=== PATIENT | female | born 1965 | race Caucasian/White ===

== ENCOUNTER 2023-01-05 08:47 | Outpatient (OUT) | payer BC, SELFPAY ==
--- NOTE | 2023-01-05 08:51 | CT_ITS ---
[address] [address] Patient Name: NATALI COOK MRN: [id number] date: 1965 Sex: F Assigned Patient Location: CT Current Patient Location: CT Accession/Order Number: [id number] Exam Date: 01/05/2023 08:58 Report Date: 01/05/2023 12:06 At the request of: YUNIOR GROSSMAN Procedure: CT lung screening low-dose EXAMINATION: CT lung screening low-dose HISTORY: Nicotine Dependence F17.219 , chest tightness COMPARISON: CT LUNG CANCER SCREENING 12/24/2021 TECHNIQUE: Axial, Coronal, and Sagittal images were created without the administration of IV contrast material. Dose reduction techniques were achieved by using automated exposure control and/or adjustment of mA and/or kV according to patient size and/or use of iterative reconstruction technique. FINDINGS: LUNGS: No visible pulmonary disease. PLEURA: No mass, effusion, or pneumothorax. VASCULATURE: No abnormality. IRAIS: No mass or pathologic adenopathy. MEDIASTINUM: No mass or pathologic adenopathy. CARDIAC: No enlargement, pericardial thickening, or significant calcification. AORTA: No aneurysm or dissection. CHEST WALL: No mass or axillary adenopathy BONES: No bone lesion or fracture. LIMITED ABDOMEN: No suspicious findings. Limited images of the upper abdomen. OTHER: Negative. CT/CT lung screening low-dose IMPRESSION: 1. Lung-RADS Category 1 Negative. No nodules and definitely benign nodules. Continue annual screening with LDCT in 12 months. Electronically authenticated by: RYAN ALEXANDER Date: 01/05/2023 12:06
== END 2023-01-05 08:48 | disposition home or self-care (01) ==
LOC: CT 08:47
PROVIDERS: Visit Provider Internal Medicine
DX: F17.219 Nicotine dependence, cigarettes, with unspecified nicotine-induced disorders (principal)
CPT/HCPCS: 71271

== ENCOUNTER 2024-01-09 07:47 | Outpatient (OUT) | payer BC, SELFPAY ==
--- NOTE | 2024-01-09 07:51 | CT_ITS ---
[address] [address] Patient Name: NATALI COOK MRN: [id number] date: 1965 Sex: F Assigned Patient Location: CT Current Patient Location: Accession/Order Number: [id number] Exam Date: 01/09/2024 08:00 Report Date: 01/12/2024 04:22 At the request of: YUNIOR GROSSMAN Procedure: CT lung screening low-dose EXAMINATION: CT lung screening low-dose HISTORY: Nicotine Dependence COMPARISON: CT lung screening 01/05/2023 TECHNIQUE: Axial, Coronal, and Sagittal images were created without the administration of IV contrast material. Dose reduction techniques were achieved by using automated exposure control and/or adjustment of mA and/or kV according to patient size and/or use of iterative reconstruction technique. FINDINGS: LUNGS: No visible pulmonary disease. PLEURA: No mass, effusion, or pneumothorax. VASCULATURE: No abnormality. IRAIS: No mass or pathologic adenopathy. MEDIASTINUM: No mass or pathologic adenopathy. CARDIAC: No enlargement, pericardial thickening, or pericardial effusion. Coronary Artery calcifications: AORTA: No aneurysm or dissection. CHEST WALL: No mass or axillary adenopathy BONES: No bone lesion or fracture. LIMITED ABDOMEN: No suspicious findings. Limited images of the upper abdomen. OTHER: Negative. CT/CT lung screening low-dose IMPRESSION: 1. Lung-RADS Category 1 Negative. No nodules and definitely benign nodules. Continue annual screening with LDCT in 12 months. Electronically authenticated by: RYAN ALEXANDER Date: 01/12/2024 04:22
--- OUTSIDE RECORDS SUMMARY | 2024-01-09 07:59 | XMS_ITS | CCD ---
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 Taqueria Gilliam Referring Unav ailable Patricio, Dr. Taqueria Hassan Attending Unav ailable Elmer, Dr. Vick Keith Primary Care Unavailable Unavailable Primary Care Provider UnavailDr. Vick Newman Primary Care Unavailable MD TAQUERIA GILLIAM Attending Unava ilable Elmer, Dr. Vick Keith Primary Care Unavailable MD TAQUERIA GILLIAM Attending Unava ilDO Vick Arthur Primary Care Provider REYNA Guido Attending Provider Herber Guido Unavailable DO Vick Payne Attending Provider Vick Payne DO Primary Care Prov ider [place], DO Vick Primary Care Provider [place], DO Vick Attending Provider [place], DO Vick Primary Care Provider [place], DO Vick Attending Provider TAQUERIA GILLIAM Attending Unavailable [place], [facility] Primary Care Unav ailable TAQUERIA GILLIAM Referring Unavailable [place]RI[place], [facility] Primary Care Unav ailable Vick Payne MD Primary Care Provider RICKEY VALERA Attending Unavailable NOAM MURGUIA Attending Unavailable RICKEY VALERA Referring Unavailable RICKEY VALERA Attending Unavailable TAQUERIA GILLIAM Referring Unavailable BRI[place], [facility] Primary Care Unav ailable TAQUERIA GILLIAM Attending Unavailable [place], [facility] Primary Care Unav ailable TAQUERIA GILLIAM Attending Unavailable [place], [facility] Primary Care Unav ailable TAQUERIA GILLIAM Referring Unavailable TAQUERIA ROJAS Attending Unavailable B[place], [facility] Primary Care Unav ailable TAQUERIA ROJAS Referring Unavailable [place], [facility] Primary Care Unav ailable TAQUERIA GILLIAM Attending Unavailable [place], [facility] Primary Care Unav ailable TAQUERIA ROJAS Referring Unavailable [place], [facility] Primary Care Unav ailable TAQUERIA ROJAS Attending Unavailable [place], [facility] Primary Care Unav ailable TAQUERIA GILLIAM Attending Unavailable [place], [facility] Primary Care Unav ailable DO Yesenia Durant Emergency Provider [phone] Self, Referral Attending Provider Unavailable [place], Vick Attending Unavailable [place], Upson Admitting Unavailable [place], Upson Primary Care Unavailable Self, Referral Admitting Unavailable Self, Referral Attending Unavailable [place], Upson Primary Care Unavailable [place], Upson Primary Care Unavailable [place], Vick Attending Unavailable [place], Vick Admitting Unavailable Yesenia Durant Attending Unavailable Yesenia Durant Admitting Unavailable [place], Vick Primary Care Unavailable [place], Vick Primary Care Unavailable Taqueria Rojas Admitting Unavailable Taqueria Rojas Attending Unavailable Unavailable Primary Care Provider UnavailaDne ARVIZU, BYRON Referring Jovani labJAY Cain Referring JAY Ku Attending JAY Ku Referring Unavai lable Allergies Allergy Classification Reported Allergen(s) Allergy Type Date of Onset Reaction(s) Facility Corticosteroids (3 sources) Corticosteroids; Translations: [Corticosteroids] Drug Allergy [facility] Work Phone: (14 sources) Corticosteroids; Translations: [Corticosteroids] Allergy to drug (finding) [facility] Work Phone: (20 sources) buPROPion; Translations: [BUPROPION] Drug Allergy [facility] (11 sources) Penicillins; Translations: [Penicillins] Allergy to substance Unknown Reaction, Gastrointestinal Upset [facility] (3 sources) buPROPion Drug Allergy Unknown [facility] Repository (7 sources) Penicillin G Drug Allergy Unknown, Gastrointestinal Upset [facility] (5 sources) predniSONE Drug Allergy rash [facility] Other (6 sources) methylPREDNISolone Drug Allergy [facility] (11 sources) Glucocorticoid preparation; Translations: [CORTICOSTEROIDS (GLUCOCORTICOIDS)] Drug Allergy Unknown [facility] (4 sources) Penicillin G sodium Allergy to substance GI intolerance [facility] (1 source) buPROPion Drug Allergy [facility] Repository (1 source) methylPREDNISolone Drug Allergy [facility] (1 source) Penicillin Drug Allergy [facility] Repository Medications Current Medications Medication Drug Class(es) Dates Sig (Normalized) Sig (Original) [id number] 200 actuat albuterol 0.09 mg/actuat metered dose inhaler (18 sources) beta2-Adrenergic Agonist Start: 12-05-2020 Albuterol Sulfate (Ventolin Hfa) 90 mcg/actuation HFA aerosol inhaler Active 1 - 2 PUFF INHALATION As Directed December 05, 2020 12:00am albuterol HFA (P ROVENTIL HFA, VENTOLIN HFA) 90 mcg/actuation inhaler Albuterol Sulfate HFA Active ALBUTEROL SULFAT E HFA IN Albuterol Sulfate HFA Active albuterol HFA (P ROVENTIL HFA, VENTOLIN HFA) 90 mcg/actuation inhaler Albuterol Sulfate HFA 0 Active Comment on above: Albuterol Sulfate HF A Albuterol Sulfate HFA 108 MCG/ACT (1 source) take 1 puff(s) by inhalation every four hours as needed Albuterol Sulfate HFA 108 MCG/ACT 1 puff as needed Inhalation every 4 hrs Active benzonatate 200 mg oral capsule (1 source) Non-narcotic Antitussive Start: 11-30-19 take 1 capsule by mouth three times daily as needed for cough Benzonatate 200 MG 1 capsule Orally Three times a day as needed for cough for 7 day(s) Nov, Active doxycycline monohydrate 100 mg oral capsule (1 source) Tetracycline-class Drug Start: 11-30-19 take 1 capsule by mouth every twelve hours Doxycycline Monohydrate 100 MG 1 capsule Orally Twice a day for 10 days Nov, Active ibuprofen 800 mg oral tablet (20 sources) Nonsteroidal Anti-inflammatory Drug Start: 08-19-19 take 1 tablet by mouth every eight hours as needed for pain ibuprofen (MOTRIN) 800 mg tablet Indications: Sore throat , Chronic neck pain , Headache, unspecified headache type Take 1 tablet by mouth every 8 hours as needed for pain. 15 tablet 09/15/2022 Active Start: 08-18-2018 take 1 tablet by yamile th three times daily Ibuprofen Active 1 TAB PO Three times daily August 18, 2018 12:00am Motrin 800 MG NJ N *please review for potential _update for e-prescription and drug interaction check* Active Comment on above: q 8 HR. Take 1 tablet by yamile th every 8 hours as needed for pain. iv contrast (will be provided with radiology test) (1 source) Start: 07-04-19 End: 07-05-19 iv contrast (will be provided with radiology test) CT Urogram WO/W Inject, intravenously, once for 1 dose.No IV access, insert saline lock prior to the beginning of sedation, infusion, injection of imaging exam. Discontinue saline lock post exam. If Pt. has a central line or IVAD, may access for administration according to line specific nursing protocol. Once exam is complete flush line and de-access according to line specific nursing protocol in the CT contrast administration guidelines link. 1 Each 0 07/03/2021 07/04/2021 Active Comment on above: CT Urogram WO/W Inje ct, intravenously, once for 1 dose.No IV access, insert saline lock prior to the beginning of sedation, infusion, injection of imaging exam. Discontinue saline lock post exam. If Pt. has a central line or IVAD, may access for administration according to line specific nursing protocol. Once exam is complete flush line and de-access according to line specific nursing protocol in the CT contrast administration guidelines link. methylPREDNISolone (4 sources) Corticosteroid Start: 09-16-19 methylPREDNISolone (MEDROL, JOHAN,) 4 mg Dose-Pack Indications: Chronic neck pain , Headache, unspecified headache type , Wheezing As instructed per package 21 tablet 09/15/2022 Active Start: 09-15-2022 methylPREDNISo lone (MEDROL, JOHAN,) 4 mg Dose-Pack Indications: Chronic neck pain , Headache, unspecified headache type , Wheezing As instructed per package 21 tablet 0 09/15/2022 Active Comment on above: As instructed per [facility] [place] predniSONE 20 mg oral tablet (1 source) Start: take 1 tablet by mouth every twelve hours predniSONE 20 MG 1 tablet Orally twice a day for 5 days Nov, Active 1000 ml sodium chloride 9 mg/ml injection (1 source) Start: End: inject 1 dose intravenously once 0.9 % sodium chloride (NACL 0.9%) infusion Inject 100 mL/hr intravenously one time only for 1 dose. Administer at rate defined per CT contrast administration specifications. To be provided with radiology test. 1 Each 0 07/03/2021 07/03/2021 Active Comment on above: Inject 100 mL/hr int ravenously one time only for 1 dose. Administer at rate defined per CT contrast administration specifications. To be provided with radiology test. Completed/Discontinued Medications Medication Drug Class(es) Dates Sig (Normalized) Sig (Original) betamethasone 3 mg/ml / betamethasone acetate 3 mg/ml injectable suspension (2 sources) Corticosteroid Start: 03-24-2023 End: 03-24-2023 betamethasone acet,sod phos (Celestone) injection 2 mL 120 actuat budesonide 0.16 mg/actuat / formoterol fumarate 0.0045 mg/actuat metered dose inhaler (10 sources) Corticosteroid, beta2-Adrenergic Agonist Start: 12-05-2020 End: 12-08-2023 Budesonide-Formote rol (Symbicort) 160-4.5 mcg/actuation HFA aerosol inhaler Discontinued 1 INH INHALATION Daily December 05, 2020 12:00am December 08, 2023 7:36pm 6 ml hylan g-f 20 8 mg/ml prefilled syringe (2 sources) Start: 01-06-2023 End: 01-06-2023 hylan (Synvisc-One) injection 48 mg Start: 01-06-2023 End: 01-06-2023 hylan (Synvisc-One) injectio n 48 mg Ketorolac (2 sources) Nonsteroidal Anti-inflammatory Drug, Cyclooxygenase Inhibitor Start: 12-08-2016 Toradol p er 15 mg Nov, 60 mg Lidocaine (5 sources) Antiarrhythmic, Amide Local Anesthetic Start: 07-21-2023 End: 07-21-2023 lidocaine (Xylocaine) 10 mg/mL (1 %) injection 5 mL Start: 07-21-2023 End: 07-21-2023 5 mL, injection, Once PRN Pr ocedure, Starting on Tue07/21/23 at 0921, For 1 dose Start: 03-24-2023 End: 03-24-2023 lidocaine (Xylocaine) 10 mg/ mL (1 %) injection 5 mL Start: 08-12-2021 End: 08-12-2021 lidocaine urojet 2 % 11 mL t opical gel (XYLOCAINE, GLYDO) LORazepam 0.5 mg oral tablet (20 sources) Benzodiazepine Start: 03-01-2017 End: 12-08-2023 Lorazepam Discontinued 0.5 MG PO As Directed March 01, 2017 1:00am December 08, 2023 7:37pm LORazepam (ATIVA N) 2 mg tab Take 5 mg by mouth as needed. Active LORazepam (Ativa n) 2 mg tablet LORazepam TABS Refills: 0 Active Active LORazepam 0.5mg *please review for potential _update for e-prescription and drug interaction check* PRN Not-Taking LORazepam TABS Q uantity: 0 Refills: 0 Ordered: 21-Jun-2019 DO Active LORazepam TABS R efills: 0 Active Comment on above: Take 5 mg by mouth a s needed. naproxen 500 mg oral tablet (20 sources) Nonsteroidal Anti-inflammatory Drug Start: 03-01-2017 End: 08-18-2018 Naproxen (Naprosyn) 500 mg Tablet Discontinued 500 MG PO EVERY 8-12 HOURS March 01, 2017 1:00am August 18, 2018 11:20am naproxen (Napros yn) 500 mg tablet Naproxen TABS Refills: 0 Active Active Naproxen TABS Qu antity: 0 Refills: 0 Ordered: 21-Jun-2019 DO Active Naproxen TABS Re fills: 0 Active ProAir HFA 108 (90 Base) MCG/ACT (2 sources) Start: 12-04-2018 take 2 puff(s) by inhalation every six hours as needed ProAir HFA 108 (90 Base) MCG/ACT 2 puffs as needed Inhalation every 6 hrs for 30 days Nov, Not-Taking Start: 12-04-2018 take 2 puff(s) by in halation every six hours as needed ProAir HFA 108 (90 Base) MCG/ACT 2 puffs as needed Inhalation every 6 hrs for 30 days Nov, Active sulfamethoxazole 800 mg / trimethoprim 160 mg oral tablet (1 source) Dihydrofolate Reductase Inhibitor Antibacterial, Sulfonamide Antimicrobial Start: 08-12-2021 End: 08-12-2021 sulfamethoxazole-trimethopri m 800-160 mg 1 tablet (BACTRIM DS,SEPTRA DS) 1 ml triamcinolone acetonide 40 mg/ml injection (6 sources) Corticosteroid Start: 07-21-2023 End: 07-21-2023 triamcinolone acetonide (Kenalog-40) injection 2 mg Start: 07-21-2023 End: 07-21-2023 2 mg, intra-articular, Once PRN Procedure, Starting on Purnima 07/21/23 at 0921, For 1 dose Start: 11-22-2018 Kenalog -40 mg Oct, 40 mg Start: 07-05-2018 Kenalog -40 mg June, 40 mg Problems Active Problems Problem Classification Problem Date Documented Da te Episodic/Chronic Acute bronchitis (1 source) Acute bronchitis, unspecified Episodic Conditions associated with dizziness or vertigo (2 sources) Positional vertigo; Translations: [Positional vertigo] Episodic Genitourinary symptoms and ill-defined conditions (2 sources) Mixed urinary incontinence; Translations: [Mixed incontinence] Chronic Genitourinary symptoms and ill-defined conditions (3 sources) Microscopic hematuria; Translations: [Other microscopic hematuria] Episodic Headache; including migraine (1 source) Headache; Translations: [Headache, unspecified headache type] 09-15-2022 Episodic Immunizations and screening for infectious disease (1 source) Contact with and (suspected) exposure to other viral communicable diseases Episodic Joint disorders and dislocations; trauma-related (20 sources) Derangement of knee; Translations: [Unspecified internal derangement of knee] Onset: 01-05-2023 01-05-2023 Chronic Joint disorders and dislocations; trauma-related (5 sources) Other tear of medial meniscus, current injury, right knee, initial encounter; Translations: [Tear of medial meniscus of knee] Onset: 11-16-2023 Episodic Menopausal disorders (2 sources) Atrophy of vagina; Translations: [Postmenopausal atrophic vaginitis] Chronic Mood disorders (4 sources) Mood swings; Translations: [Emotional lability] 11-16-2023 Episodic Nonmalignant breast conditions (2 sources) Fibrocystic disease of breast; Translations: [Diffuse cystic mastopathy of right breast] Chronic Nonspecific chest pain (3 sources) Atypical chest pain; Translations: [Other chest pain] Onset: 12-08-2023 12-08-2023 Episodic Osteoarthritis (20 sources) Osteoarthrosis of the carpometacarpal joint of the thumb; Translations: [Osteoarthrosis, localized, not specified whether primary or secondary, hand] Onset: 11-04-2022 01-06-2023 Chronic Other connective tissue disease (3 sources) Pain in right arm; Translations: [Bilateral arm pain] Onset: 03-09-2018 Episodic Other connective tissue disease (2 sources) Pain in left arm; Translations: [Pain in left arm] Onset: 03-09-2018 Episodic Other connective tissue disease (10 sources) Pain in lower limb; Translations: [Pain in leg, unspecified] 08-27-2021 Episodic Other ear and sense organ disorders (2 sources) Decreased hearing ; Translations: [Unspecified hearing loss, bilateral] Chronic Other gastrointestinal disorders (4 sources) Abdominal bloating; Translations: [Abdominal distension (gaseous)] 12-03-2023 Episodic Other injuries and conditions due to external causes (10 sources) Multiple bruising; Translations: [Unspecified multiple injuries, initial encounter] 03-01-2017 Episodic Other lower respiratory disease (1 source) Wheezing; Translations: [Wheezing] 09-15-2022 Episodic Other lower respiratory disease (1 source) Shortness of breath Episodic Other nervous system disorders (2 sources) Nerve root compression syndrome; Translations: [Nerve root compression] Chronic Other non-traumatic joint disorders (17 sources) Shoulder pain; Translations: [Pain in joint, shoulder region] Episodic Other non-traumatic joint disorders (17 sources) Pain in elbow; Translations: [Pain in joint, upper arm] Episodic Other non-traumatic joint disorders (1 source) Knee pain; Translations: [Knee pain] Episodic Other non-traumatic joint disorders (20 sources) Pain in unspecified knee; Translations: [Knee pain] Episodic Other non-traumatic joint disorders (20 sources) Pain in wrist; Translations: [Pain in joint, forearm] Episodic Other non-traumatic joint disorders (16 sources) Pigmented villonodular synovitis; Translations: [Villonodular synovitis, site unspecified] Onset: 01-05-2023 01-05-2023 Episodic Other non-traumatic joint disorders (6 sources) Pain in right knee; Translations: [Pain in joint, lower leg] Onset: 11-04-2022 Episodic Other nutritional; endocrine; and metabolic disorders (1 source) Abnormal weight gain; Translations: [Abnormal weight gain] Onset: 10-13-2023 Episodic Other screening for suspected conditions (not mental disorders or infectious disease) (15 sources) Patient encounter status; Translations: [Encounter for screening for malignant neoplasm of colon] Onset: 12-19-2023 12-05-2020 Episodic Other skin disorders (4 sources) Loss of hair; Translations: [Nonscarring hair loss, unspecified] 11-16-2023 Episodic Other skin disorders (2 sources) Eruption; Translations: [Rash and other nonspecific skin eruption] 12-08-2023 Episodic Other upper respiratory infections (1 source) Sore throat symptom; Translations: [Acute pharyngitis, unspecified] 09-15-2022 Episodic Otitis media and related conditions (2 sources) Otitis media; Translations: [Unspecified otitis media] Episodic Residual codes; unclassified (2 sources) Family history of breast cancer; Translations: [Family history of malignant neoplasm of breast] 12-08-2023 Episodic Spondylosis; intervertebral disc disorders; other back problems (9 sources) Displacement of cervical intervertebral disc without myelopathy; Translations: [Other cervical disc displacement, unspecified cervical region] Onset: 03-09-2018 07-05-2023 Chronic Sprains and strains (20 sources) Sprain of knee; Translations: [Sprains and strains of unspecified site of knee and leg] Onset: 01-05-2023 03-01-2017 Episodic Substance-related disorders (4 sources) Nicotine dependence, cigarettes, with unspecified nicotine-induced disorders; Translations: [NICOTINE DEPEND CIG W/UNS INDUC D/O] Onset: 12-24-2021 Chronic Thyroid disorders (7 sources) Hyperthyroidism; Translations: [Thyrotoxicosis, unspecified without thyrotoxic crisis or storm] Onset: 12-27-2023 12-27-2023 Chronic Past or Other Problems Problem Classification Problem Date Documented Date Episodic/Chronic Cardiac dysrhythmias (1 source) Bradycardia, unspecified; Translations: [Bradycardia, unspecified] Onset: 05-16-2023 Episodic Fracture of upper limb (17 sources) Closed fracture of scaphoid bone of wrist; Translations: [Closed fracture of navicular [scaphoid] bone of wrist] Onset: 01-05-2023 01-05-2023 Episodic Mood disorders (4 sources) Mood disorders Onset: 11-16-2023 11-16-2023 Other connective tissue disease (20 sources) Lateral epicondylitis of left humerus; Translations: [Lateral epicondylitis] Onset: 01-05-2023 01-05-2023 Episodic Other connective tissue disease (2 sources) Lateral epicondylitis of left humerus; Translations: [Lateral epicondylitis of left elbow] Other non-traumatic joint disorders (7 sources) Villonodular synovitis (pigmented), unspecified site; Translations: [Villonodular synovitis, site unspecified] Onset: 01-05-2023 01-05-2023 Episodic Spondylosis; intervertebral disc disorders; other back problems (16 sources) Neck pain; Translations: [Neck pain on left side] Onset: 07-11-2023 09-15-2022 Episodic Superficial injury; contusion (20 sources) Contusion of knee; Translations: [Contusion of knee] Onset: 01-05-2023 01-05-2023 Episodic Unclassified (10 sources) Sprain and strain of wrist 03-01-2017 Unclassified (1 source) Cough R05.9 Viral infection (1 source) COVID-19 NEGATED: Highlighted row has not occurred!Residual codes; unclassified (5 sources) Disease Episodic Results Test Name Value Interpretation Reference Range Facility CBC panel Auto (Bld)on 01-02 Erythrocyte distribution width (RBC) [Ratio] 13.3 % Normal 11.5-15.0 [facility] Comment on above: Order Comment: Amy ndiaye Type: BLOOD SPECIMENOrdering Facility: [facility] Address: [address] [place] [address] Performed By: #### 5 8410-2 ####[facility] [id number] [place] [address] [place] Hematocrit (Bld) [Volume fraction] 40.4 % Normal 36.0-46.0 [facility] Comment on above: Order Comment: Amy ndiaye Type: BLOOD SPECIMENOrdering Facility: [facility] Address: [address] [place] [address] Performed By: #### 5 8410-2 ####[facility] [id number] [place] [address] [place] Hemoglobin (Bld) [Mass/Vol] 13.0 g/dL Normal 11.5-15.5 [facility] Comment on above: Order Comment: Amy ndiaye Type: BLOOD SPECIMENOrdering Facility: [facility] Address: [address] [place] [address] Performed By: #### 5 8410-2 ####[facility] [id number] [place] [address] [place] MCH (RBC) [Entitic mass] 28.3 pg Normal 26.0-34.0 [facility] Comment on above: Order Comment: Speci men Type: BLOOD SPECIMENOrdering Facility: [facility] Address: [address] [place] [address] Performed By: #### 5 8410-2 ####[facility] [id number] [place] [address] [place] MCHC (RBC) [Mass/Vol] 32.2 g/dL Normal 30.5-36.0 [facility] Comment on above: Order Comment: Speci men Type: BLOOD SPECIMENOrdering Facility: [facility] Address: [address] [place] [address] Performed By: #### 5 8410-2 ####[facility] [id number] [place] [address] [place] MCV (RBC) [Entitic vol] 88.0 fL Normal 80.0-100.0 [facility] Comment on above: Order Comment: Speci men Type: BLOOD SPECIMENOrdering Facility: [facility] Address: [address] [place] [address] Performed By: #### 5 8410-2 ####[facility] [id number] [place] [address] [place] Nucleated RBC (Bld) [#/Vol] 10*3/uL Normal <0.01 [facility] Comment on above: Order Comment: Speci men Type: BLOOD SPECIMENOrdering Facility: [facility] Address: [address] [place] [address] Performed By: #### 5 8410-2 ####[facility] [id number] [place] [address] [place] Platelet mean volume (Bld) [Entitic vol] 9.6 fL Normal 9.0-12.7 [facility] Comment on above: Order Comment: Speci men Type: BLOOD SPECIMENOrdering Facility: [facility] Address: [address] [place] [address] Performed By: #### 5 8410-2 ####[facility] [id number] [place] [address] [place] Platelets (Bld) [#/Vol] 283 10*3/uL Normal 150-400 [facility] Comment on above: Order Comment: Speci men Type: BLOOD SPECIMENOrdering Facility: [facility] Address: [address] [place] [address] Performed By: #### 5 8410-2 ####[facility] [id number] [place] [address] [place] RBC (Bld) [#/Vol] 4.59 10*6/uL Normal 3.90-5.20 [facility] Comment on above: Order Comment: Speci men Type: BLOOD SPECIMENOrdering Facility: [facility] Address: [address] [place] [address] Performed By: #### 5 8410-2 ####[facility] [id number] [place] [address] [place] WBC (Bld) [#/Vol] 5.60 10*3/uL Normal 3.70-11.00 [facility] Comment on above: Order Comment: Speci men Type: BLOOD SPECIMENOrdering Facility: [facility] Address: [address] [place] [address] Performed By: #### 5 8410-2 ####[facility] [id number] [place] [address] [place] Hepatic function 2000 panelo n 01-03-2024 Albumin [Mass/Vol] 3.9 g/dL Normal 3.9-4.9 [facility] Comment on above: Order Comment: Speci men Type: BLOOD SPECIMEN Ordering Facility: [facility] Address: [address] [place] [address] Performed By: #### 2 4325-3, 3016-3, 3024-7, 3051-0 #### [facility] CLIA [id number] [address] [place] [address] [place] ALP [Catalytic activity/Vol] 110 U/L Normal 34-123 [facility] Comment on above: Order Comment: Speci men Type: BLOOD SPECIMEN Ordering Facility: [facility] Address: [address] [place] [address] Performed By: #### 2 4325-3, 3016-3, 3024-7, 3051-0 #### [facility] CLIA [id number] [address] [place] [address] [place] ALT [Catalytic activity/Vol] 23 U/L Normal 7-38 [facility] Comment on above: Order Comment: Speci men Type: BLOOD SPECIMEN Ordering Facility: [facility] Address: [address] [place] [address] Performed By: #### 2 4325-3, 3016-3, 3024-7, 3051-0 #### [facility] CLIA [id number] [address] [place] [address] [place] AST [Catalytic activity/Vol] 23 U/L Normal 13-35 [facility] Comment on above: Order Comment: Speci men Type: BLOOD SPECIMEN Ordering Facility: [facility] Address: [address] [place] [address] Performed By: #### 2 4325-3, 3016-3, 3024-7, 3051-0 #### [facility] CLIA [id number] [address] [place] [address] [place] Bilirubin [Mass/Vol] 0.3 mg/dL Normal 0.2-1.3 [facility] Comment on above: Order Comment: Speci men Type: BLOOD SPECIMEN Ordering Facility: [facility] Address: [address] [place] [address] Performed By: #### 2 4325-3, 3016-3, 3024-7, 3051-0 #### [facility] CLIA [id number] [address] [place] [address] [place] Bilirubin.conjugated [Mass/Vol] mg/dL Normal <0.2 [facility] Comment on above: Order Comment: Speci men Type: BLOOD SPECIMEN Ordering Facility: [facility] Address: [address] [place] [address] Performed By: #### 2 4325-3, 3016-3, 3027, 305-0 #### [facility] CLIA [id number] [address] [place] [address] [place] Protein [Mass/Vol] 6.5 g/dL Normal 6.3-8.0 [facility] Comment on above: Order Comment: Speci men Type: BLOOD SPECIMEN Ordering Facility: [facility] Address: [address] [place] [address] Performed By: #### 2 4325-3, 3016-3, 3027, 305-0 #### [facility] CLIA [id number] [address] [place] [address] [place] T3Free SerPl-mCncon 01-03-20 24 Free T3 [Mass/Vol] 6.8 pg/mL High 2.3-4.1 [facility] Comment on above: Order Comment: Speci men Type: BLOOD SPECIMEN Ordering Facility: [facility] Address: [address] [place] [address] Performed By: #### 2 4325-3, 3016-3, 302-7, 305-0 #### [facility] CLIA [id number] [address] [place] [address] [place] T4 Free SerPl-mCncon 024 Free T4 [Mass/Vol] 2.0 ng/dL High 0.9-1.7 [facility] Comment on above: Order Comment: Speci senthil Type: BLOOD SPECIMEN Ordering Facility: [facility] Address: [address] [place] [address] Performed By: #### 2 4325-3, 3016-3, 3024-7, 3051-0 #### [facility] CLIA [id number] [address] [place] [address] [place] TSH SerPl-aCncon 01-03-2024 TSH Qn m[IU]/L Low 0.270-4.[address] [facility] Comment on above: Order Comment: Amy senthil Type: BLOOD SPECIMEN Ordering Facility: [facility] Address: [address] [place] [address] Performed By: #### 2 4325-3, 3016-3, 3024-7, 3051-0 #### [facility] CLIA [id number] [address] [place] [address] [place] US THYROID/PARATHYROIDon US THYROID/PARATHYROID * * *Final Report * * * DATE OF EXAM: Jan 02 2024 10:41PM [facility] 1048 - US THYROID/PARATHYROID / PROCEDURE REASON: Torin thyroiditis * * * * Physician Interpretation * * * * EXAMINATION: THYROID ULTRASOUND CLINICAL HISTORY: Torin thyroiditis TECHNIQUE: Sonography and Doppler imaging of the thyroid was performed. Images were obtained and stored in a permanent archive. MQ: UST_1 COMPARISON: None. RESULT: Right Lobe: 4.9 x 1.4 x 1.3 cm; homogeneous echogenicity, expected vascular flow. Left Lobe: 4.8 x 2.2 x 1.8 cm; homogeneous echogenicity, expected vascular flow. Isthmus: 0.2 cm The most suspicious thyroid nodule(s) (up to four) as below: NODULE 1: Location: Right mid Size: 1.3 x 1.1 x 0.9 cm Characteristics: Composition: Solid or almost completely solid, 2 points Echogenicity: Hypoechoic, 2 points Shape: [id number], 0 points Margin: Ill-defined, 0 points Echogenic foci (add points for all that apply): None, 0 points Internal vascularity: present Interval growth: No prior available for comparison TI-RADS Category: TR4 ACR Recommendation: TI-RADS 4 nodule. Follow up imaging in 1, 2, 3 and 5 years is advised. IMPRESSION: Thyroid nodule(s) is/are present. Surveillance imaging is recommended for one or more nodules as detailed in the synoptic report. TI-RADS Category: TR4 ACR Recommendation: TI-RADS 4 nodule. Follow up imaging in 1, 2, 3 and 5 years is advised. ACR recommendations are strictly based on the size and imaging appearance at the time of the exam and do not consider stability or previous biopsy results. Pack Room Operator: LARISA Transcribe Date/Time: Jan 06 2024 5:49A Dictated by : АЛЕКСАНДР HINDS MD This examination was interpreted and the report reviewed and electronically signed by: АЛЕКСАНДР HINDS MD on Jan 06 2024 5:50AM EST [id number] [facility] 12-28-[address] [facility] Telephone (ENDOLN) ----- CLARISSA PARIS ([id number]) 1965 F Date Time Provider Department 12/28/23 JAY HASSAN ENDOANATOLIY During your visit today, we recorded the following information about you: Maddie Vigil 12/28/2023 10:25 AM Signed Clarissa is calling Jay Hassan MD today trying to review her visit from yesterday on my chart. The visit is unsigned. Looking to see if this can be completed so that she can review. Please advise. Patient has been identified by name and birthdate. Duration of symptoms: N/A Person calling: self Call patient at: at home [phone] (home) [phone] (cell) Was an appointment scheduled: No Closing statement: Results or non-symptom based questions: Thank you for calling [facility], your call will be returned within the next business day. Maddie Sonia Florentino LPN 12/28/2023 4:50 PM Signed Note has been signed . Trusted Opinion message sent to patient. Allergies As of Date: 12/28/2023 Noted Allergy Reaction WELLBUTRIN (BUPROPION) 07/03/2021 2 - Rash Date Reviewed: 12/27/2023 Reviewed by: Sonia Dennis LPN - Fully Assessed Reason for Visit: Appointment [186] Prescriptions as of 12/28/2023 - ibuprofen (MOTRIN) 800 mg tablet q 8 HR. - albuterol HFA (PROVENTIL HFA, VENTOLIN HFA) 90 mcg/actuation inhaler Albuterol Sulfate HFA - methylPREDNISolone (MEDROL, JOHAN,) 4 mg Dose-Pack As instructed per package - ibuprofen (MOTRIN) 800 mg tablet Take 1 tablet by mouth every 8 hours as needed for pain. - LORazepam (ATIVAN) 2 mg tab Take 5 mg by mouth as needed. Problem List As Of Date: 12/28/2023 (None) Encounter Status:Closed by SONIA DENNIS on 12/28/[address] [facility] No Panel Informationon 12-27 Interpretation and review of laboratory results Abnormal [facility] T3, FREEon 12-28-2023 Free T3 [Mass/Vol] 8.2 pg/mL High 2.3 - 4.1 pg/mL [facility] T4 FREE/FREE THYROXINEon Free T4 [Mass/Vol] 2.1 ng/dL High 0.9 - 1.7 ng/dL [facility] THYROID STIMULATING HORMONEo n 12-28-2023 TSH Qn Low [facility] Comment on above: Result rechecked. THYROID STIMULATING IMMUNOGL OBULIN BLOODon 12-28-2023 Interpretation and review of laboratory results Abnormal [facility] Thyroid stimulating immunoglobulins actual/normal (S) [Relative mass conc] 1.75 % High NINF [facility] Comment on above: Thyroid Stimulating Immunoglobulin test is used as an aid in diagnosis of autoimmune hyperthyroidism especially in patients with Grave's orbitopathy and dermopathy. Low positive TSH receptor stimulating antibody levels may occasionally be found in patients with autoimmune hypothyroidism. Clinical correlation is required. TSI Qualitative Positive Abnormal Negative [facility] TSH Qnon 12-28-2023 Interpretation and review of laboratory results Abnormal [facility] CNOVon 12-27-2023 CNOV Office Visit (ENDOLN ) ----- CLARISSA PARIS ([id number]) 1965 F Date Time Provider Department 12/27/23 8:40 AM JAY HASSAN ENDOLN During your visit today, we recorded the following information about you: Pulse Blood pressure Weight Height 78/minute 100/62 72 kg 1.676 m Jay Hassan MD 12/28/2023 11:04 AM Signed ENDOCRINOLOGY REASON FOR CONSULTATION: Hyperthyroidism The patient is referred by Rickey Valera MD HISTORY HPI: Clarissa Paris is a 58 year old female who comes in here for evaluation of tiredness, hair loss, thyroid concerns. She has been experiencing hair loss, weight gain, mood swings, and tiredness since around April 2023. She also mentioned tenderness of fingers in the morning. Per note from OB, Pt started crying while going over questions. Family history of breast cancer MGM and PGM. Sister with Torin's. New onset generalized itching Insomnia, which has gotten worse. Used to smoke tobacco, about 0.5 ppd, but quit on 10/2022. She is exercising: Rowing machine for 15 minutes, followed by resistance, and sometimes bicycle. REVIEW OF SYSTEMS: CONSTITUTIONAL: No unintended weight loss. HEENT: No frequent or severe headaches. EYES: No blurry vision. No diplopia. CARDIOVASCULAR: No significant chest pain. No significant ankle edema. HR up to 100 when resting. PULMONARY: No significant dyspnea. GASTROINTESTINAL: Frequent heartburn. Some constipation. GENITOURINARY: Nocturia average: 2. No new urinary complaints. Mild effort incontinence. NEUROLOGIC: No tremor. No numbness of concern. MUSCULOSKELETAL: Per HPI. MENTAL HEALTH: Per HPI. INTEGUMENTARY: Per HPI. ENDOCRINE: Per HPI PAST MEDICAL HISTORY Diagnosis Date Depression PAST SURGICAL HISTORY Procedure Laterality Date SNGL HYSTERECTOMY KNEE RIGHT OP SURGERY LAMINECTOMY,CERVICAL Social History Tobacco Use Smoking status: Every Day Types: Cigarettes Passive exposure: Current Smokeless tobacco: Never Substance Use Topics Alcohol use: Yes Drug use: Not Currently FAMILY HISTORY Problem Relation Age of Onset Torin Disease Sister Thyroid Maternal Grandmother Diabetes Maternal Grandmother Thyroid Maternal Grandfather Depression Maternal Grandfather Diabetes Paternal Grandmother Current Outpatient Medications Medication Sig ibuprofen (MOTRIN) 800 mg tablet q 8 HR. albuterol HFA (PROVENTIL HFA, VENTOLIN HFA) 90 mcg/actuation inhaler Albuterol Sulfate HFA methylPREDNISolone (MEDROL, JOHAN,) 4 mg Dose-Pack As instructed per package ibuprofen (MOTRIN) 800 mg tablet Take 1 tablet by mouth every 8 hours as needed for pain. LORazepam (ATIVAN) 2 mg tab Take 5 mg by mouth as needed. No current facility-administered medications for this visit. ALLERGIES Allergen Reactions Wellbutrin [Bupropi* Rash PHYSICAL EXAM: BP 100/62 (BP Site: Left Arm, BP Position: Sitting, BP Cuff Size: Extra Large Adult) Pulse 78 Ht 167.6 cm (5' 6 ) Wt 72 kg (158 lb 11.7 oz) BMI 25.62 kg/m? Body mass index is 25.62 kg/m?. Appearance: Well appearing, in no acute distress. Obese, not cushingoid HEENT: Anicteric sclerae. Non-injected conjunctivae. Neck: No visible goiter. No thyromegaly. Thyroid surface is irregular and left lobe seems larger than the right one. No lymphadenopathy Heart: RRR. No detectable murmur, gallop, or rub. Lungs: Clear to auscultation. No wheezing, rhonchi or rales. Abdomen: No significant striae. Extremities: No deformities. No edema. Neuro: Alert, speaking coherently. No involuntary motions. Skin: Normal temperature. No rash. LABS RESULTS: (10/20/23) TPO 137 (0-34) FT4 1.18 (0.61-1.12) TSH 0.01 IMAGING: No thyroid imaging. ASSESSMENT AND PLAN: Clarissa Paris is a 58 year old female here for evaluation of hyperthyroidism. (E05.90) Hyperthyroidism (primary encounter diagnosis) Comment: Pt with multiple symptoms, some of which may be explained by hyperthyroidism, while some other may not. Clinically today there are no apparent signs of thyrotoxicosis. Pt had mildly TSH with mildly increased FT4 on 10/20/23. Plan to check TFT and TSI. 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 Besides TFTs, will do a thyroid US. Plan: T3, FREE, T4 FREE/FREE THYROXINE, THYROID STIMULATING HORMONE, US THYROID/PARATHYROID Return to office: 3 months Jay Hassan MD c.c. Rickey Valera MD Allergies As of Date: 12/27/2023 Noted Allergy Reaction WELLBUTRIN (BUPROPION) 07/03/2021 2 - Rash Date Reviewed: 12/27/2023 Reviewed by: Sonia Dennis LPN - Fully Assessed Reason for Visit: Thyroid Problem [110] Primary Visit Diagnosis:Hyperthyroidism (more content not included)... Normal [facility] T3Free SerPl-mCncon 12-27-19 24 Free T3 [Mass/Vol] 8.2 pg/mL High 2.3-4.1 [facility] Comment on above: Order Comment: Speci men Type: BLOOD SPECIMEN [facility]: [facility] Address: [address] [place] [address] Performed By: #### 3 051-0, 7, 3 #### [facility] CLIA [id number] [address] [place] [address] [place] T4 Free SerPl-mCncon 024 Free T4 [Mass/Vol] 2.1 ng/dL High 0.9-1.7 [facility] Comment on above: Order Comment: Speci men Type: BLOOD SPECIMEN Ordering Facility: [facility] Address: [address] [place] [address] Performed By: #### 3 051-0, 3023-7, 3 #### [facility] CLIA [id number] [address] [place] [address] [place] THYROID STIMULATING IMMUNOGL OBULIN BLOODon 12-27-2023 Thyroid stimulating immunoglobulins actual/normal (S) [Relative mass conc] 1.75 IU/L High <0.55 [facility] Comment on above: Order Comment: Speci men Type: BLOOD SPECIMENOrdering Facility: [facility] Address: [address] [place] [address] Result Comment: Thyr oid Stimulating Immunoglobulin test is used as an aid in diagnosis of autoimmune hyperthyroidism especially in patients with Grave's orbitopathy and dermopathy. Low positive TSH receptor stimulating antibody levels may occasionally be found in patients with autoimmune hypothyroidism. Clinical correlation is required. Performed By: #### T SIGIM ####[facility] [id number] [place] [address] [place] TSI QUALITATIVE Positive Abnormal Negative [facility] Comment on above: Order Comment: Speci men Type: BLOOD SPECIMENOrdering Facility: [facility] Address: [address] [place] [address] Performed By: #### T SIGIM ####[facility] [id number] [place] [address] [place] TSH SerPl-aCncon 12-27-2023 TSH Qn m[IU]/L Low 0.270-4.[address] [facility] Comment on above: Order Comment: Speci men Type: BLOOD SPECIMEN Ordering Facility: [facility] Address: [address] [place] [address] Result Comment: Resu lt rechecked. Performed By: #### 3 051-0, 3024-7, 3016-3 #### [facility] CLIA [id number] [address] [place] [address] [place] MM screening mammo BI w/CADo n 12-19-2023 MM screening mammo BI w/CAD [facility] [address] [place] [address] Mammography Report Signed Patient: Clarissa Paris MR#: [id number] : 1965 Acct:[id number] Age/Sex: 57 / F ADM Date: 12/19/23 Loc: [place] Room: Type: [facility] Attending Dr: Referral Self Copies to: Vick Payne,DO SELF,REFERRAL Ordering Provider: SELF,REFERRAL Date of Service: 12/19/23 MM/MM screening mammo BI w/CAD: SCREENING BILATERAL Screening Full Field digital mammogram with 3-D imaging. Full field digital CC and MLO imaging performed. CAD utilized. COMPARISON: 12/17/2022 HISTORY: Annual screening BREAST COMPOSITION: Scattered fibroglandular densities of the breast parenchyma identified BREAST CALCIFICATIONS: Benign calcifications present. VASCULAR CALCIFICATIONS: None ARCHITECTURAL DISTORTION: None BREAST NODULE: Similar benign nodularity. AXILLARY LYMPH NODES: Normal POSTSURGICAL CHANGES: 2 left biopsy marking clips redemonstrated. MM/MM screening mammo BI w/CAD IMPRESSION: No mammographic evidence of malignancy. Routine follow-up recommended in one year. RESULT CODE: 2 Benign Findings(s) DENSITY CODE: 2 (approximately 25-50% glandular) FOLLOW UP: 1YR THE FALSE-NEGATIVE RATE OF MAMMOGRAPHY IS APPROXIMATELY 10%. IMAGING OF A PALPABLE ABNORMALITY MUST BE BASED ON CLINICAL GROUNDS. PATIENT WAS ENTERED INTO A REMINDER SYSTEM WITH A TARGET DUE DATE FOR THE NEXT MAMMOGRAM. Impression dictated by: Jose Lama M.D.12/19/2023 9:41 AM Dictation Location: [facility] Transcribed By: [facility] 12/19/23940 Dictated By: Jose Lama DO 12/19/23939 Signed By: 12/19/23940 Normal [facility] Automated basophil %Ordered By: Yesenia Durant on 12-08-2023 Basophils/100 WBC (Bld) 0.8 % Normal . [facility] Comment on above: Performed By: #### C MP, CBC, LIPID, THYROID SC #### [facility] [address] Automated basophil countOrde red By: Yesenia Durant on 12-08-2023 Basophils (Bld) [#/Vol] 0.1 10*3/uL Normal 0.0-0.2 [facility] Comment on above: Result Comment: PERF ORMED BY: [place] [address] PATHOLOGIST EXCELLENCE MANAGER MICHELLE PLATT M.D. Performed By: #### C MP, CBC, LIPID, THYROID SC #### [address] Automated blood monocyte cou ntOrdered By: Yesenia Durant on 12-08-2023 Monocytes (Bld) [#/Vol] 0.9 10*3/uL High 0.0-0.8 [facility] Comment on above: Performed By: #### C MP, CBC, LIPID, THYROID SC #### [address] Automated eosinophil %Ordere d By: Yesenia Durant on 12-08-2023 Eosinophils/100 WBC (Bld) 0.7 % Normal . [facility] Comment on above: Performed By: #### C MP, CBC, LIPID, THYROID SC #### [address] Automated eosinophil countOr dered By: Yesenia Durant on 12-08-2023 Eosinophils (Bld) [#/Vol] 0.0 10*3/uL Normal 0.0-0.45 [facility] Comment on above: Performed By: #### C MP, CBC, LIPID, THYROID SC #### [address] Automated monocyte %Ordered By: Yesenia Durant on 12-08-2023 Monocytes/100 WBC (Bld) 12.5 % Normal . [facility] Comment on above: Performed By: #### C MP, CBC, LIPID, THYROID SC #### [address] Automated neutrophil %Ordere d By: Yesenia Durant on 12-08-2023 Neutrophils/100 WBC (Bld) 53.9 % Normal . [facility] Comment on above: Performed By: #### C MP, CBC, LIPID, THYROID SC #### [address] BNP ser/plasOrdered By: Jason Durant on 12-08-2023 Natriuretic peptide B (Bld) [Mass/Vol] 39.0 pg/mL Normal 5-100 [facility] Comment on above: Result Comment: PERF ORMED BY: [place] [address] PATHOLOGIST EXCELLENCE MANAGER MICHELLE PLATT M.D. Performed By: #### C MP, CBC, LIPID, THYROID SC #### [address] Basic Metabolic Panelon 11-28 Creatinine Clr Calc Pharmacy 91.06 Normal [facility] Comment on above: Result Comment: PERF ORMED BY: [place] [address] PATHOLOGIST EXCELLENCE MANAGER MICHELLE PLATT M.D. Performed By: #### C MP, CBC, LIPID, THYROID SC #### [address] GFR/1.73 sq M.predicted MDRD (S/P/Bld) [Vol rate/Area] mL/min/{1.73_m2} Normal [facility] Comment on above: Performed By: #### C MP, CBC, LIPID, THYROID SC #### [address] Calcium [Mass/volume] in Ser um or PlasmaOrdered By: Yesenia Durant on 12-08-2023 Calcium [Mass/Vol] 10.3 mg/dL Normal 8.6-10.[address] [facility] Comment on above: Performed By: #### C MP, CBC, LIPID, THYROID SC #### [address] Carbon dioxide, total [Moles /volume] in Serum or PlasmaOrdered By: Yesenia Durant on 12-08-2023 CO2 [Moles/Vol] 27.2 mmol/L Normal 21.0-31.0 [facility] Comment on above: Performed By: #### C MP, CBC, LIPID, THYROID SC #### [address] Chloride [Moles/volume] in S noam or PlasmaOrdered By: Yesenia Durant on 12-08-2023 Chloride [Moles/Vol] 102 mmol/L Normal 98-107 [facility] Comment on above: Performed By: #### C MP, CBC, LIPID, THYROID SC #### [address] Complete Blood Count Auto Di ffon 12-08-2023 Mean Corpuscular HGB Conc 33.7 g/dL Normal 32.0-35.0 [facility] Comment on above: Performed By: #### C MP, CBC, LIPID, THYROID SC #### [address] Monocytes/100 WBC (Bld) 16.43 % Normal 0.00-20.00 [facility] Comment on above: Performed By: #### C MP, CBC, LIPID, THYROID SC #### [address] NRBC% 0.2 /100{WBC} Normal 0-0.5 [facility] Comment on above: Performed By: #### C MP, CBC, LIPID, THYROID SC #### [address] Creatine kinase [Enzymatic a ctivity/volume] in Serum or PlasmaOrdered By: Yesenia Durant on 12-08-2023 CK [Catalytic activity/Vol] 66 U/L Normal 30-223 [facility] Comment on above: Performed By: #### C MP, CBC, LIPID, THYROID SC #### [address] Creatinine [Mass/volume] in Serum or PlasmaOrdered By: Yesenia Durant on 12-08-2023 Creatinine [Mass/Vol] 0.69 mg/dL Normal 0.60-1.20 [facility] Comment on above: Performed By: #### C MP, CBC, LIPID, THYROID SC #### [facility] [address] [place] [address] ECG 12 lead ECGon 12-08-2023 ECG 12 lead ECG [facility] [place] [address] [place] [address] Electrocardiograph Report Signed Patient: Clarissa Paris MR#: [id number] : 1965 Acct:[id number] Age/Sex: 57 / F ADM Date: 12/08/23 Loc: ER Room: Type: [facility] ER Attending Dr: Ordering Provider: Yesenia Durant DO Date of Service: 12/08/2312/22/1915 ECG/ECG 12 lead ECG: Chest Pain Copies to: Test Reason : Blood Pressure : 189/93 mmHG Vent. Rate : 99 BPM Atrial Rate : 99 BPM P-R Int : 132 ms QRS Dur : 84 ms QT Int : 358 ms P-R-T Axes : 74 83 67 degrees QTcB Int : 459 ms Normal sinus rhythm Normal ECG When compared with ECG of 15-Aug-2018 15:52, Vent. rate has increased by 40 bpm QT has lengthened Confirmed by YESENIA DURANT DO ([id number]) on 12/08/2023 10:56:28 PM Referred By: Electronically Signed By: YESENIA DURANT DO Transcribed By: MUS Signed By Yesenia Durant DO 2255 Normal [facility] Erythrocyte distribution wid th [Ratio] by Automated countOrdered By: Yesenia Durant on 12-08-2023 Erythrocyte distribution width (RBC) [Ratio] 13.5 % Normal 11.9-15.3 [facility] Comment on above: Performed By: #### C MP, CBC, LIPID, THYROID SC #### [facility] [address] [place] [address] Erythrocytes [#/volume] in B lood by Automated countOrdered By: Yesenia Durant on 12-08-2023 RBC (Bld) [#/Vol] 4.60 10*6/uL Normal 3.60-5.00 [facility] Comment on above: Performed By: #### C MP, CBC, LIPID, THYROID SC #### [facility] [address] [place] [address] Glucose [Mass/volume] in Ser um or PlasmaOrdered By: Yesenia Durant on 12-08-2023 Glucose [Mass/Vol] 102 mg/dL High 70-[address] [facility] Comment on above: ADA recommended refe rence rangeRandom Glucose Reference Range is dependent on time and content of last meal. Glucose of more than 200 mg/dL in a nonstressed, ambulatory subject supports the diagnosis of Diabetes Mellitus. Result Comment: [place] om Glucose Reference Range is dependent on time and content of last meal. Glucose of more than 200 mg/dL in a nonstressed, ambulatory subject supports the diagnosis of Diabetes Mellitus. ADA recommended reference range Performed By: #### C MP, CBC, LIPID, THYROID SC #### [facility] [address] [place] [address] Hematocrit [Volume Fraction] of Blood by Automated countOrdered By: Yesenia Durant on 12-08-2023 Hematocrit (Bld) [Volume fraction] 39.5 % Normal 34.0-46.4 [facility] Comment on above: Performed By: #### C MP, CBC, LIPID, THYROID SC #### [facility] [address] [place] [address] Hemoglobin [Mass/volume] in BloodOrdered By: Yesenia Durant on 12-08-2023 Hemoglobin (Bld) [Mass/Vol] 13.3 g/dL Normal 11.8-15.4 [facility] Comment on above: Performed By: #### C MP, CBC, LIPID, THYROID SC #### [address] INR in Platelet poor plasma by Coagulation assayOrdered By: Yesenia Durant on 12-08-2023 INR Coag (PPP) [Relative time] 1.0 {INR} Normal [facility] Comment on above: INR Therapeutic Rang e A) Pre- and Peroperative OAT started two weeks before surgery. NOT HIP SURGERY: 1.5 - 2.5 HIP SURGERY: 2 - 3B) Primary and secondary prevention of venous THROMBOSIS: 2 - 3C) Active venous thrombosis, pulmonary embolismand prevention of recurrent venous thrombosis: 2 - 3D) Prevention of arterial thromboembolismincluding patients with mechanical heart valves: 3 - 4.5 Result Comment: INR Therapeutic Range A) Pre- and Peroperative OAT started two weeks before surgery. NOT HIP SURGERY: 1.5 - 2.5 HIP SURGERY: 2 - 3 B) Primary and secondary prevention of venous THROMBOSIS: 2 - 3 C) Active venous thrombosis, pulmonary embolism and prevention of recurrent venous thrombosis: 2 - 3 D) Prevention of arterial thromboembolism including patients with mechanical heart valves: 3 - 4.5 PERFORMED BY: [place] [address] PATHOLOGIST EXCELLENCE MANAGER MICHELLE PLATT M.D. Performed By: #### C MP, CBC, LIPID, THYROID SC #### [address] Leukocytes [#/volume] correc kb for nucleated erythrocytes in Blood by Automated counOrdered By: Yesenia Durant on 12-08-2023 WBC corrected for nucl RBC Auto (Bld) [#/Vol] 7.1 10*3/uL 3.8-11.6 [facility] Leukocytes [#/volume] in Blo od by Automated countOrdered By: Yesenia Durant on 12-08-2023 WBC (Bld) [#/Vol] 7.1 10*3/uL Normal 3.8-11.[address] [facility] Comment on above: Performed By: #### C MP, CBC, LIPID, THYROID SC #### [facility] [address] [place] [address] [place] Lymphocytes [#/volume] in Bl ood by Automated countOrdered By: Yesenia Durant on 12-08-2023 Lymphocytes (Bld) [#/Vol] 2.3 10*3/uL Normal 1.00-4.8 [facility] Comment on above: Performed By: #### C MP, CBC, LIPID, THYROID SC #### [facility] [address] [place] [address] [place] Lymphocytes/100 leukocytes i n Blood by Automated countOrdered By: Yesenia Durant on 12-08-2023 Lymphocytes/100 WBC (Bld) 32.1 % Normal . [facility] Comment on above: Performed By: #### C MP, CBC, LIPID, THYROID SC #### [address] MCH [Entitic mass] by Automa kb countOrdered By: Yesenia Durant on 12-08-2023 MCH (RBC) [Entitic mass] 28.9 pg Normal 24.7-34.3 [facility] Comment on above: Performed By: #### C MP, CBC, LIPID, THYROID SC #### [address] MCHC Auto (RBC) [Mass/Vol]Or dered By: Yesenia Durant on 12-08-2023 MCHC (RBC) [Mass/Vol] 33.7 g/dL 32.0-35.0 [facility] MCV [Entitic volume] by Auto mated countOrdered By: Yesenia Durant on 12-08-2023 MCV (RBC) [Entitic vol] 85.8 fL Normal 80-100 [facility] Comment on above: Performed By: #### C MP, CBC, LIPID, THYROID SC #### [address] Monocyte distribution width [Entitic volume] in Blood by AutomatedOrdered By: Yesenia Durant on 12-08-2023 Monocyte distribution width Auto (Bld) [Entitic vol] 16.43 % 0.00-20.00 [facility] Neutrophils [#/volume] in Bl ood by Automated countOrdered By: Yesenia Durant on 12-08-2023 Neutrophils (Bld) [#/Vol] 3.8 10*3/uL Normal 1.8-7.7 [facility] Comment on above: Performed By: #### C MP, CBC, LIPID, THYROID SC #### [address] No Panel InformationOrdered By: Yesenia Durant on 12-08-2023 Estimated GFR (CKD-EPI) > 60.0 mL/Min [facility] Creatinine Clearance (Chem 91.06 [facility] Nucleated erythrocytes [Pres ence] in Blood by Automated countOrdered By: Yesenia Durant on 12-08-2023 Nucleated RBC Auto Ql (Bld) 0.2 /100{WBC} 0-0.5 [facility] Platelet mean volume [Entiti c volume] in Blood by Automated countOrdered By: Yesenia Mendozagovind on 12-08-2023 Platelet mean volume (Bld) [Entitic vol] 7.3 fL Normal 6.3-10.7 [facility] Comment on above: Performed By: #### C MP, CBC, LIPID, THYROID SC #### [address] Platelets [#/volume] in Bloo d by Automated countOrdered By: Yesenia Kiley on 12-08-2023 Platelets (Bld) [#/Vol] 258 10*3/uL Normal 150-450 [facility] Comment on above: Performed By: #### C MP, CBC, LIPID, THYROID SC #### [address] Potassium [Moles/volume] in Serum or PlasmaOrdered By: Yesenia Durant on 12-08-2023 Potassium [Moles/Vol] 3.6 mmol/L Normal 3.5-5.1 [facility] Comment on above: Performed By: #### C MP, CBC, LIPID, THYROID SC #### [address] Prothrombin time (PT)Ordered By: Yesenia Durant on 12-08-2023 PT Coag (PPP) [Time] 12.0 s Normal 9.0-12.9 [facility] Comment on above: A hematocrit value g reater than 55% may lead to inaccurate results in coagulation testing. Patients having hematocrit values >55% require a special collection tube for coagulation studies. Please contact the laboratory at [phone] for redraw instructions. Result Comment: A he matocrit value greater than 55% may lead to inaccurate results in coagulation testing. Patients having hematocrit values >55% require a special collection tube for coagulation studies. Please contact the laboratory at [phone] for redraw instructions. Performed By: #### C MP, CBC, LIPID, THYROID SC #### [address] Serum or plasma anion gap de terminationOrdered By: Yesenia Durant on 12-08-2023 Anion gap [Moles/Vol] 11.4 mmol/L Normal 6.0-15.0 [facility] Comment on above: Performed By: #### C MP, CBC, LIPID, THYROID SC #### [facility] [address] Sodium [Moles/volume] in Ser um or PlasmaOrdered By: Yesenia Durant on 12-08-2023 Sodium [Moles/Vol] 137 mmol/L Normal 136-[address] [facility] Comment on above: Performed By: #### C MP, CBC, LIPID, THYROID SC #### [address] Troponin I High Sensitivityo n 12-08-2023 Troponin I High Sensitivity 3.3 pg/mL Normal 0.0-15.0 [facility] Comment on above: Result Comment: PERF ORMED BY: [place] [address] PATHOLOGIST EXCELLENCE MANAGER MICHELLE PLATT M.D. Performed By: #### C MP, CBC, LIPID, THYROID SC #### [address] Troponin I High Sensitivity 3.1 pg/mL Normal 0.0-15.0 [facility] Comment on above: Result Comment: PERF ORMED BY: [place] [address] PATHOLOGIST EXCELLENCE MANAGER MICHELLE PLATT M.D. Performed By: #### C MP, CBC, LIPID, THYROID SC #### [address] Troponin I.cardiac [Mass/vol ume] in Serum or Plasma by Detection limit <= 0.01 ng/Ordered By: Yesenia Durant on 12-08-2023 Troponin I.cardiac DL <= 0.01 ng/mL [Mass/Vol] 3.3 pg/mL 0.0-15.0 [facility] Urea nitrogen [Mass/volume] in Serum or PlasmaOrdered By: Yesenia Durant on 12-08-2023 Urea nitrogen [Mass/Vol] 16 mg/dL Normal 7-25 [facility] Comment on above: Performed By: #### C MP, CBC, LIPID, THYROID SC #### [facility] [address] XR chest 2V*on 12-08-2023 XR chest 2V* [facility] [place] [address] [place] [address] XRay Report Signed Patient: Clarissa Paris MR#: [id number] : 1965 Acct:[id number] Age/Sex: 57 / F ADM Date: 12/08/23 Loc: ER Room: Type: [facility] ER Attending Dr: Copies to: Yesenia Durant DO Ordering Provider: Yesenia Durant DO Date of Service: 12/08/23 XR/XR chest 2V*: Chest Pain XR chest 2V* 12/08/2023 7:16 PM SIGNS AND SYMPTOMS: Chest Pain PROTOCOL: Frontal and lateral radiographs of the chest COMPARISON: 11/29/2022 FINDINGS: The trachea is midline. The heart and mediastinal structures are within normal limits. The lung parenchyma is clear. The bony thorax is intact. XR/XR chest 2V* IMPRESSION: No acute cardiopulmonary pathology. Impression dictated by: Gerardo Patton M.D.12/08/2023 8:40 PM Dictation Location: [place] [address] Transcribed By: [facility] 12/08/232039 Dictated By: Gerardo Patton II, MD 12/08/232037 Signed By: 12/08/232039 Normal [facility] MR KNEE RIGHT WO IV CONTRAST on 12-05-2023 MR KNEE RIGHT WO IV CONTRAST Interpreted By: Mo Reed, STUDY: MR KNEE RIGHT WO IV CONTRAST; ; 12/05/2023 8:21 am INDICATION: Signs/Symptoms:pain. COMPARISON: 06/21/2020 ACCESSION NUMBER(S): [id number] ORDERING CLINICIAN: TAQUERIA GILLIAM TECHNIQUE: Multiplanar and multisequential MR images of the right knee are performed. FINDINGS: There is a moderate-sized joint effusion with fluid distention of the lateral patellofemoral recess. There is irregular low T2 weighted signal throughout the joint capsule including the lateral patellofemoral recess. These findings have increased in the interval and compatible with PVNS. 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 There are findings of tricompartmental osteoarthritis which are severe in the lateral patellofemoral joint inferiorly with severe thinning of the articular cartilage, joint space narrowing, and subchondral degenerative bone marrow signal and cystic changes. Marginal osteophytes project laterally. This appearance is similar to the previous study. There is no evidence of acute osseous fracture, bone marrow edema, or osseous mass. There is no loose osteochondral lesion. The medial meniscus is of normal morphology. There is some thickening along the posterior meniscocapsular ligament meniscotibial ligament compatible with PVNS. The remainder of the meniscus is of normal morphology. There is no linear meniscal tear or truncation. The lateral meniscus is of normal morphology. There is horizontal linear signal throughout the meniscus approaching the inferior articular surface of the posterior horn similar to the previous study. On coronal images there is some truncation of the free edge and complex linear signal extending to the superior and inferior articular surface. The anterior and posterior cruciate ligaments, lateral collateral ligament complex, popliteus tendon, medial collateral ligament, extensor complex, and patellar retinacula are intact. There is lateral tracking in tilting of the patella. 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 Lateral tracking in tilting of the patella. Tearing at the free edge and adjacent articular surfaces as described above. MACRO: None Signed by: Mo Reed 12/05/2023 9:37 AM Dictation workstation: [id number] [facility] Comment on above: Order Comment: [facility] MR Knee - right WO contrasto n 12-05-2023 Worsening findings o f PVNS as detailed above. 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 Lateral tracking in tilting of the patella. Tearing at the free edge and adjacent articular surfaces as described above. MACRO: None Signed by: Mo Reed 12/05/2023 9:37 AM Dictation workstation: [id number] MMODAL Interpreted By: Mo Reed, STUDY: MR KNEE RIGHT WO IV CONTRAST; ; 12/05/2023 8:21 am INDICATION: Signs/Symptoms:pain. COMPARISON: 06/21/2020 ACCESSION NUMBER(S): [id number] ORDERING CLINICIAN: TAQUERIA GILLIAM TECHNIQUE: Multiplanar and multisequential MR images of the right knee are performed. FINDINGS: There is a moderate-sized joint effusion with fluid distention of the lateral patellofemoral recess. There is irregular low T2 weighted signal throughout the joint capsule including the lateral patellofemoral recess. These findings have increased in the interval and compatible with PVNS. 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 There are findings of tricompartmental osteoarthritis which are severe in the lateral patellofemoral joint inferiorly with severe thinning of the articular cartilage, joint space narrowing, and subchondral degenerative bone marrow signal and cystic changes. Marginal osteophytes project laterally. This appearance is similar to the previous study. There is no evidence of acute osseous fracture, bone marrow edema, or osseous mass. There is no loose osteochondral lesion. The medial meniscus is of normal morphology. There is some thickening along the posterior meniscocapsular ligament meniscotibial ligament compatible with PVNS. The remainder of the meniscus is of normal morphology. There is no linear meniscal tear or truncation. The lateral meniscus is of normal morphology. There is horizontal linear signal throughout the meniscus approaching the inferior articular surface of the posterior horn similar to the previous study. On coronal images there is some truncation of the free edge and complex linear signal extending to the superior and inferior articular surface. The anterior and posterior cruciate ligaments, lateral collateral ligament complex, popliteus tendon, medial collateral ligament, extensor complex, and patellar retinacula are intact. There is lateral tracking in tilting of the patella. MMODAL Oliver Reed MD - 12/05/2023 Interpreted By: Mo Reed, STUDY: MR KNEE RIGHT WO IV CONTRAST; ; 12/05/2023 8:21 am INDICATION: Signs/Symptoms:pain. COMPARISON: 06/21/2020 ACCESSION NUMBER(S): [id number] ORDERING CLINICIAN: TAQUERIA GILLIAM TECHNIQUE: Multiplanar and multisequential MR images of the right knee are performed. FINDINGS: There is a moderate-sized joint effusion with fluid distention of the lateral patellofemoral recess. There is irregular low T2 weighted signal throughout the joint capsule including the lateral patellofemoral recess. These findings have increased in the interval and compatible with PVNS. 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 There are findings of tricompartmental osteoarthritis which are severe in the lateral patellofemoral joint inferiorly with severe thinning of the articular cartilage, joint space narrowing, and subchondral degenerative bone marrow signal and cystic changes. Marginal osteophytes project laterally. This appearance is similar to the previous study. There is no evidence of acute osseous fracture, bone marrow edema, or osseous mass. There is no loose osteochondral lesion. The medial meniscus is of normal morphology. There is some thickening along the posterior meniscocapsular ligament meniscotibial ligament compatible with PVNS. The remainder of the meniscus is of normal morphology. There is no linear meniscal tear or truncation. The lateral meniscus is of normal morphology. There is horizontal linear signal throughout the meniscus approaching the inferior articular surface of the posterior horn similar to the previous study. On coronal images there is some truncation of the free edge and complex linear signal extending to the superior and inferior articular surface. The anterior and posterior cruciate ligaments, lateral collateral ligament complex, popliteus tendon, medial collateral ligament, extensor complex, and patellar retinacula are intact. There is lateral tracking in tilting of the patella. 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 Lateral tracking in tilting of the patella. Tearing at the free edge and adjacent articular surfaces as described above. MACRO: None Signed by: Mo Reed 12/05/2023 9:37 AM Dictation workstation: [id number] [facility] Work Phone: Radiology Study observation (narrative) [facility] Work Phone: MR Knee - right WO contrastO rdered By: Yassine Reed on 12-05-2023 [facility] Work Phone: No Panel Informationon 11-19 FRANKIE MISCELLANEOUS COMMENT [facility] Comment on above: Test Ordered: [id number] IGP, Apt HPV,rfx 16/18,45 DIAGNOSIS: Comment 01 NEGATIVE FOR INTRAEPITHELIAL LESION OR MALIGNANCY. Specimen adequacy: Comment 01 Satisfactory for evaluation. Endocervical and/or squamous metaplastic cells (endocervical component) are present. Clinician provided ICD10: Comment 01 Z12.4 Z01.419 Performed by: Comment 01 Sonia Ortez, Telephone Solicitor Supervisor (ASCP) . 01 Note: Comment 01 The Pap smear is a screening test designed to aid in the detection of premalignant and malignant conditions of the uterine cervix. It is not a diagnostic procedure and should not be used as the sole means of detecting cervical cancer. Both false-positive and false-negative reports do occur. Test Methodology: Comment 01 This liquid based ThinPrep(R) pap test was screened with the use of an image guided system. HPV Aptima Negative 02 Reference Range: Negative This nucleic acid amplification test detects fourteen high-risk HPV types (16,18,31,33,35,39,45,51,52,56,58,59,66,68) without differentiation. Performed At: 01 [facility] [address] [id number] Xander Levy MD Ph:[phone] Performed At: 02 [facility] [employer] [id number] Xander Levy MD Ph:[phone] Specimen Comment: No. of containers..01 ThinPrep Vial [facility] XR KNEE RIGHT 1-2 VIEWSon XR KNEE RIGHT 1-2 VIEWS Interpreted By: Taqueria Gilliam, STUDY: XR KNEE RIGHT 1-2 VIEWS; 11/16/2023 3:20 pm INDICATION: Signs/Symptoms:pain. ACCESSION NUMBER(S): [id number] ORDERING CLINICIAN: TAQUERIA GILLIAM FINDINGS: AP lateral right knee x-ray is reviewed standing AP weight-bearing x-ray shows medial joint space arthrosis [id number] arthrosis slight varus deformity. On the lateral view there is moderate patellofemoral arthrosis. No fracture dislocation noted Signed by: Taqueria Gilliam 11/16/2023 4:16 PM Dictation workstation: [id number] [facility] Comment on above: Order Comment: AP/LA T ZION Antinuclear Antibodieson 10-13-2023 Antinuclear Abs, IFA Negative Normal . [facility] Comment on above: Result Comment: Nega tive <1:80 Borderline 1:80 Positive >1:80 ICAP nomenclature: AC-0 For more information about Hep-2 cell patterns use ANApatterns.org, the official website for the International Consensus on Antinuclear Antibody (ZION) Patterns (ICAP). Performed at: [facility] [id number] Automation Operator: Oliver Rojo PhD, Phone: [phone] PERFORMED BY: [place] [address] PATHOLOGIST EXCELLENCE MANAGER MICHELLE PLATT M.D. Performed By: #### C MP, CBC, LIPID, THYROID SC #### [facility] [address] [place] [address] Alanine aminotransferase [En zymatic activity/volume] in Serum or PlasmaOrdered By: Vick Payne on 10-13-2023 ALT [Catalytic activity/Vol] 21 U/L Normal 7-52 [facility] Comment on above: Performed By: #### C MP, CRP, ESR, ADDONUAPLUS, TEST, UA, CBC, THYROID SC #### [facility] [address] [place] [address] #### PROG, RA, TPO, EST, ZION #### [facility] , Albumin [Mass/volume] in Ser um or Plasma by Bromocresol green (BCG) dye binding methoOrdered By: Vick Payne on 10-13-2023 Albumin BCG dye [Mass/Vol] 4.3 g/dL 3.5-5.7 [facility] Alkaline phosphatase [Enzyma tic activity/volume] in Serum or PlasmaOrdered By: Vick Payne on 10-13-2023 ALP [Catalytic activity/Vol] 85 U/L Normal 34-104 [facility] Comment on above: Performed By: #### C MP, CRP, ESR, ADDONUAPLUS, TEST, UA, CBC, THYROID SC #### [address] #### PROG, RA, TPO, EST, ZION #### [facility] , Aspartate aminotransferase [ Enzymatic activity/volume] in Serum or PlasmaOrdered By: Vick Payne on 10-13-2023 AST [Catalytic activity/Vol] 23 U/L Normal 13-39 [facility] Comment on above: Performed By: #### C MP, CRP, ESR, ADDONUAPLUS, TEST, UA, CBC, THYROID SC #### [address] #### PROG, RA, TPO, EST, ZION #### [facility] , Automated basophil %Ordered By: Vick Payne on 10-13-2023 Basophils/100 WBC (Bld) 1.0 % Normal . [facility] Comment on above: Performed By: #### C MP, CBC, LIPID, THYROID SC #### [address] Automated basophil countOrde red By: Vick Payne on 10-13-2023 Basophils (Bld) [#/Vol] 0.1 10*3/uL Normal 0.0-0.2 [facility] Comment on above: Performed By: #### C MP, CBC, LIPID, THYROID SC #### [address] Automated blood monocyte cou ntOrdered By: Vick Payne on 10-13-2023 Monocytes (Bld) [#/Vol] 0.7 10*3/uL Normal 0.0-0.8 [facility] Comment on above: Performed By: #### C MP, CBC, LIPID, THYROID SC #### [address] Automated eosinophil %Ordere d By: Vick Payne on 10-13-2023 Eosinophils/100 WBC (Bld) 0.8 % Normal . [facility] Comment on above: Performed By: #### C MP, CBC, LIPID, THYROID SC #### [address] Automated eosinophil countOr dered By: Vick Payne on 10-13-2023 Eosinophils (Bld) [#/Vol] 0.0 10*3/uL Normal 0.0-0.45 [facility] Comment on above: Performed By: #### C MP, CBC, LIPID, THYROID SC #### [address] Automated monocyte %Ordered By: Vick Payne on 10-13-2023 Monocytes/100 WBC (Bld) 12.7 % Normal . [facility] Comment on above: Performed By: #### C MP, CBC, LIPID, THYROID SC #### [address] Automated neutrophil %Ordere d By: Vick Payne on 10-13-2023 Neutrophils/100 WBC (Bld) 49.5 % Normal . [facility] Comment on above: Performed By: #### C MP, CBC, LIPID, THYROID SC #### [address] Bacteria [Presence] in Urine by AutomatedOrdered By: Vick Payne on 10-13-2023 Bacteria Auto Ql (U) None seen [HPF] None Seen [facility] Bilirubin Test strip Ql (U)O rdered By: Vick Payne on 10-13-2023 Bilirubin Ql (U) Negative Negative [facility] Bilirubin.total [Mass/volume ] in Serum or PlasmaOrdered By: Vick Payne on 10-13-2023 Bilirubin [Mass/Vol] 0.6 mg/dL Normal 0.3-1.0 [facility] Comment on above: Performed By: #### C MP, CRP, ESR, ADDONUAPLUS, TEST, UA, CBC, THYROID SC #### [address] #### PROG, RA, TPO, EST, ZION #### [facility] , C reactive protein [Mass/vol ume] in Serum or PlasmaOrdered By: Vick Payne on 10-13-2023 CRP [Mass/Vol] < 0.5 mg/dL 0.0-0.5 [facility] C-Reactive Proteinon 024 CRP [Mass/Vol] mg/L Normal 0.0-0.5 [facility] Comment on above: Performed By: #### C MP, CBC, LIPID, THYROID SC #### [address] Calcium [Mass/volume] in Ser um or PlasmaOrdered By: Vick Payne on 10-13-2023 Calcium [Mass/Vol] 9.9 mg/dL Normal 8.6-10.[address] [facility] Comment on above: Performed By: #### C MP, CRP, ESR, ADDONUAPLUS, TEST, UA, CBC, THYROID SC #### [address] #### PROG, RA, TPO, EST, ZION #### [facility] , Carbon dioxide, total [Moles /volume] in Serum or PlasmaOrdered By: Vick Payne on 10-13-2023 CO2 [Moles/Vol] 28.7 mmol/L Normal 21.0-31.0 [facility] Comment on above: Performed By: #### C MP, CRP, ESR, ADDONUAPLUS, TEST, UA, CBC, THYROID SC #### [place] [address] [place] #### PROG, RA, TPO, EST, ZION #### [facility] , Chloride [Moles/volume] in S noam or PlasmaOrdered By: Vick Payne on 10-13-2023 Chloride [Moles/Vol] 106 mmol/L Normal 98-107 [facility] Comment on above: Performed By: #### C MP, CRP, ESR, ADDONUAPLUS, TEST, UA, CBC, THYROID SC #### [place] [address] [place] #### PROG, RA, TPO, EST, ZION #### [facility] , Color of Urine by AutoOrdere d By: Vick Payne on 10-13-2023 Color (U) Light-yellow Normal Yellow [facility] Comment on above: Order Comment: Name Collection Type:: Clean-Voided Midstream Performed By: #### C MP, CRP, ESR, ADDONUAPLUS, TEST, UA, CBC, THYROID SC #### [address] #### PROG, RA, TPO, EST, ZION #### [facility] , Performed By: #### C MP, CBC, LIPID, THYROID SC #### [address] Complete Blood Count Auto Di ffon 10-13-2023 Mean Corpuscular HGB Conc 33.8 g/dL Normal 32.0-35.0 [facility] Comment on above: Performed By: #### C MP, CBC, LIPID, THYROID SC #### [address] NRBC% 0.1 /100{WBC} Normal 0-0.5 [facility] Comment on above: Performed By: #### C MP, CBC, LIPID, THYROID SC #### [address] Comprehensive Metabolic Pane benny 10-13-2023 Albumin [Mass/Vol] 4.3 g/dL Normal 3.5-5.7 [facility] Comment on above: Performed By: #### C MP, CRP, ESR, ADDONUAPLUS, TEST, UA, CBC, THYROID SC #### [address] #### PROG, RA, TPO, EST, ZION #### [facility] , GFR/1.73 sq M.predicted MDRD (S/P/Bld) [Vol rate/Area] mL/min/{1.73_m2} Normal [facility] Comment on above: Performed By: #### C MP, CRP, ESR, ADDONUAPLUS, TEST, UA, CBC, THYROID SC #### [address] #### PROG, RA, TPO, EST, ZION #### [facility] , Creatinine [Mass/volume] in Serum or PlasmaOrdered By: Vick Payne on 10-13-2023 Creatinine [Mass/Vol] 0.73 mg/dL Normal 0.60-1.20 [facility] Comment on above: Performed By: #### C MP, CRP, ESR, ADDONUAPLUS, TEST, UA, CBC, THYROID SC #### [address] #### PROG, RA, TPO, EST, ZION #### [facility] , Dipstick and Microscopicon 0 10-13-2023 Bacteria,Urine None Seen Normal None Seen [facility] Comment on above: Order Comment: Name Collection Type:: Clean-Voided Midstream Performed By: #### C MP, CBC, LIPID, THYROID SC #### [address] Hyaline Casts,Urine None Normal 0-8 [facility] Comment on above: Order Comment: Name Collection Type:: Clean-Voided Midstream Performed By: #### C MP, CBC, LIPID, THYROID SC #### [address] Mucus,Urine Rare Normal [facility] Comment on above: Order Comment: Name Collection Type:: Clean-Voided Midstream Result Comment: PERF ORMED BY: [place] [address] PATHOLOGIST EXCELLENCE MANAGER MICHELLE PLATT M.D. Performed By: #### C MP, CBC, LIPID, THYROID SC #### [address] RBC,Urine 1-2 Normal 0-4 [facility] Comment on above: Order Comment: Name Collection Type:: Clean-Voided Midstream Performed By: #### C MP, CBC, LIPID, THYROID SC #### [address] Squamous Epithelial Cell,Urine 1-2 Normal 0-2 [facility] Comment on above: Order Comment: Name Collection Type:: Clean-Voided Midstream Performed By: #### C MP, CBC, LIPID, THYROID SC #### [address] WBC,Urine 3-4 Normal 0-4 [facility] Comment on above: Order Comment: Name Collection Type:: Clean-Voided Midstream Performed By: #### C MP, CBC, LIPID, THYROID SC #### [address] Epithelial cells.squamous [# /area] in Urine sediment by Automated countOrdered By: Vick Payne on 10-13-2023 Epithelial cells.squamous Auto (Urine sed) [#/Area] 1-2 [HPF] 0-2 [facility] Erythrocyte Sedimentation Ra vane 10-13-2023 ESR (Bld) [Velocity] 25 mm/h Normal 0-29 [facility] Comment on above: Result Comment: PERF ORMED BY: [place] [address] PATHOLOGIST EXCELLENCE MANAGER MICHELLE PLATT M.D. Performed By: #### C MP, CBC, LIPID, THYROID SC #### [address] Erythrocyte distribution wid th [Ratio] by Automated countOrdered By: Vick Payne on 10-13-2023 Erythrocyte distribution width (RBC) [Ratio] 14.8 % Normal 11.9-15.3 [facility] Comment on above: Performed By: #### C MP, CBC, LIPID, THYROID SC #### [address] Erythrocyte sedimentation ra te by Photometric methodOrdered By: Vick Payne on 10-13-2023 ESR Photometric method (Bld) [Velocity] 25 mm/hr 0-29 [facility] Erythrocytes [#/area] in Uri ne sediment by Automated countOrdered By: Vick Payne on 10-13-2023 RBC Auto (Urine sed) [#/Area] 1-2 [HPF] 0-4 [facility] Erythrocytes [#/volume] in B lood by Automated countOrdered By: Vick Payne on 10-13-2023 RBC (Bld) [#/Vol] 4.72 10*6/uL Normal 3.60-5.00 [facility] Comment on above: Performed By: #### C MP, CBC, LIPID, THYROID SC #### [facility] [address] Estrogens, Totalon 4 Estrogens, Total 62 pg/mL Normal 40-244 [facility] Comment on above: Result Comment: Prep ubertal < 40 Female Cycle: 1-10 Days 16 - 328 11-20 Days 34 - 501 21-30 Days 48 - 350 Post-Menopausal 40 - 244 Performed at: BN - [facility] [address] [id number] Automation Operator: Martina Ross MD, Phone: [phone] Performed By: #### C MP, CBC, LIPID, THYROID SC #### [facility] [address] Glucose [Mass/volume] in Ser um or PlasmaOrdered By: Vick Payne on 10-13-2023 Glucose [Mass/Vol] 98 mg/dL Normal 70-[address] [facility] Comment on above: ADA recommended refe rence rangeRandom Glucose Reference Range is dependent on time and content of last meal. Glucose of more than 200 mg/dL in a nonstressed, ambulatory subject supports the diagnosis of Diabetes Mellitus. Result Comment: [place] om Glucose Reference Range is dependent on time and content of last meal. Glucose of more than 200 mg/dL in a nonstressed, ambulatory subject supports the diagnosis of Diabetes Mellitus. ADA recommended reference range Performed By: #### C MP, CRP, ESR, ADDONUAPLUS, TEST, UA, CBC, THYROID SC #### [facility] [address] #### PROG, RA, TPO, EST, ZION #### [facility] , Glucose [Mass/volume] in Uri ne by Test stripOrdered By: Vick Payne on 10-13-2023 Glucose Test strip (U) [Mass/Vol] Normal mg/dL Normal [facility] Hematocrit [Volume Fraction] of Blood by Automated countOrdered By: Vick Payne on 10-13-2023 Hematocrit (Bld) [Volume fraction] 40.7 % Normal 34.0-46.4 [facility] Comment on above: Performed By: #### C MP, CBC, LIPID, THYROID SC #### [address] Hemoglobin Test strip Ql (U) Ordered By: Vick Payne on 10-13-2023 Hemoglobin Ql (U) 2+ High Negative [facility] [place] Hemoglobin [Mass/volume] in BloodOrdered By: Vick Payne on 10-13-2023 Hemoglobin (Bld) [Mass/Vol] 13.8 g/dL Normal 11.8-15.4 [facility] Comment on above: Performed By: #### C MP, CBC, LIPID, THYROID SC #### [address] Hyaline casts [#/area] in Ur ine sediment by Automated countOrdered By: Vick Payne on 10-13-2023 Hyaline casts Auto (Urine sed) [#/Area] None [LPF] 0-8 [facility] Ketones [Presence] in Urine by Test stripOrdered By: Vick Payne on 10-13-2023 Ketones Ql (U) Negative Normal Negative [facility] Comment on above: Order Comment: Name Collection Type:: Clean-Voided Midstream Performed By: #### C MP, CRP, ESR, ADDONUAPLUS, TEST, UA, CBC, THYROID SC #### [address] #### PROG, RA, TPO, EST, ZION #### [facility] , Performed By: #### C MP, CBC, LIPID, THYROID SC #### [address] Leukocyte esterase [Presence ] in Urine by Test stripOrdered By: Vick Payne on 10-13-2023 Leukocyte esterase Test strip Ql (U) Negative Normal Negative [facility] Comment on above: Order Comment: Name Collection Type:: Clean-Voided Midstream Performed By: #### C MP, CRP, ESR, ADDONUAPLUS, TEST, UA, CBC, THYROID SC #### [facility] [address] [place] [address] #### PROG, RA, TPO, EST, ZION #### [facility] , Performed By: #### C MP, CBC, LIPID, THYROID SC #### [address] Leukocytes [#/area] in Urine sediment by Automated countOrdered By: Vick Payne on 10-13-2023 WBC Auto (Urine sed) [#/Area] 3-4 [HPF] 0-4 [facility] Leukocytes [#/volume] correc kb for nucleated erythrocytes in Blood by Automated counOrdered By: Vick Payne on 10-13-2023 WBC corrected for nucl RBC Auto (Bld) [#/Vol] 5.3 10*3/uL 3.8-11.6 [facility] Leukocytes [#/volume] in Blo od by Automated countOrdered By: Vick Payne on 10-13-2023 WBC (Bld) [#/Vol] 5.3 10*3/uL Normal 3.8-11.[address] [facility] Comment on above: Performed By: #### C MP, CBC, LIPID, THYROID SC #### [facility] [address] [place] [address] Lymphocytes [#/volume] in Bl ood by Automated countOrdered By: iVck Payne on 10-13-2023 Lymphocytes (Bld) [#/Vol] 1.9 10*3/uL Normal 1.00-4.8 [facility] Comment on above: Performed By: #### C MP, CBC, LIPID, THYROID SC #### [address] Lymphocytes/100 leukocytes i n Blood by Automated countOrdered By: Vick Payne on 10-13-2023 Lymphocytes/100 WBC (Bld) 36.0 % Normal . [facility] Comment on above: Performed By: #### C MP, CBC, LIPID, THYROID SC #### [facility] [address] MCH [Entitic mass] by Automa kb countOrdered By: Vick Payne on 10-13-2023 MCH (RBC) [Entitic mass] 29.2 pg Normal 24.7-34.3 [facility] Comment on above: Performed By: #### C MP, CBC, LIPID, THYROID SC #### [facility] [address] [place] [address] MCHC Auto (RBC) [Mass/Vol]Or dered By: Vick Payne on 10-13-2023 MCHC (RBC) [Mass/Vol] 33.8 g/dL 32.0-35.0 [facility] MCV [Entitic volume] by Auto mated countOrdered By: Vick Payne on 10-13-2023 MCV (RBC) [Entitic vol] 86.3 fL Normal 80-100 [facility] Comment on above: Performed By: #### C MP, CBC, LIPID, THYROID SC #### [address] Mucus [Presence] in Urine by AutomatedOrdered By: Vick Payne on 10-13-2023 Mucus Auto Ql (U) Rare [LPF] [facility] [place] Neutrophils [#/volume] in Bl ood by Automated countOrdered By: Vick Payne on 10-13-2023 Neutrophils (Bld) [#/Vol] 2.6 10*3/uL Normal 1.8-7.7 [facility] Comment on above: Performed By: #### C MP, CBC, LIPID, THYROID SC #### [address] Nitrite Test strip Ql (U)Ord ered By: Vick Payne on 10-13-2023 Nitrite Ql (U) Negative Negative [facility] No Panel InformationOrdered By: Vick Payne on 10-13-2023 Estimated GFR (CKD-EPI) > 60.0 mL/Min [facility] Creatinine Clearance (Chem N/A [facility] Nucleated erythrocytes [Pres ence] in Blood by Automated countOrdered By: Vick Payne on 10-13-2023 Nucleated RBC Auto Ql (Bld) 0.1 /100{WBC} 0-0.5 [facility] Platelet mean volume [Entiti c volume] in Blood by Automated countOrdered By: Vick Payne on 10-13-2023 Platelet mean volume (Bld) [Entitic vol] 7.9 fL Normal 6.3-10.7 [facility] Comment on above: Performed By: #### C MP, CBC, LIPID, THYROID SC #### [facility] [address] Platelets [#/volume] in Bloo d by Automated countOrdered By: Vick Payne on 10-13-2023 Platelets (Bld) [#/Vol] 252 10*3/uL Normal 150-450 [facility] Comment on above: Performed By: #### C MP, CBC, LIPID, THYROID SC #### [facility] [address] Potassium [Moles/volume] in Serum or PlasmaOrdered By: Vick Payne on 10-13-2023 Potassium [Moles/Vol] 4.2 mmol/L Normal 3.5-5.1 [facility] Comment on above: Performed By: #### C MP, CRP, ESR, ADDONUAPLUS, TEST, UA, CBC, THYROID SC #### [facility] [address] #### PROG, RA, TPO, EST, ZION #### [facility] , Progesteroneon 10-13-2023 Progesterone 0.2 ng/mL Normal . [facility] Comment on above: Result Comment: Foll icular phase 0.1 - 0.9 Luteal phase 1.8 - 23.9 Ovulation phase 0.1 - 12.0 First trimester 11.0 - 44.3 Second trimester 25.4 - 83.3 Third trimester 58.7 - 214.0 Postmenopausal 0.0 - 0.1 Performed By: #### C MP, CBC, LIPID, THYROID SC #### [address] Protein Test strip (U) [Mass /Vol]Ordered By: Vick Payne on 10-13-2023 Protein (U) [Mass/Vol] Negative Negative [facility] Protein [Mass/volume] in Ser um or PlasmaOrdered By: Vick Payne on 10-13-2023 Protein [Mass/Vol] 6.5 g/dL Normal 6.4-8.[address] [facility] Comment on above: Performed By: #### C MP, CRP, ESR, ADDONUAPLUS, TEST, UA, CBC, THYROID SC #### [address] #### PROG, RA, TPO, EST, ZION #### [facility] , Rheumatoid Factoron 10-13-19 Rheumatoid Factor <10.0 Normal <14.0 [facility] Comment on above: Result Comment: Perf ormed at: CB - [facility] [place] [address] Automation Operator: Oliver Rojo PhD, Phone: [phone] Performed By: #### C MP, CBC, LIPID, THYROID SC #### [address] Serum globulin measurement b y calculation (mass/volume)Ordered By: Vick Payne on 10-13-2023 Globulin (S) [Mass/Vol] 2.2 g/dL Normal [facility] Comment on above: Performed By: #### C MP, CRP, ESR, ADDONUAPLUS, TEST, UA, CBC, THYROID SC #### [address] #### PROG, RA, TPO, EST, ZION #### [facility] , Serum homogeneous pattern an tinuclear antibody (ZION) titerOrdered By: Vick Payne on 10-13-2023 Homogenous nuclear Ab pattern (S) [Titer] N/A [facility] Serum nuclear antibody titer Ordered By: Vick Payne on 10-13-2023 Nuclear Ab (S) [Titer] Negative . [facility] Comment on above: Negative <1:80 Borde rline 1:80 Positive >1:80ICAP nomenclature: [id number] more information about Hep-2 cell patterns useANApatterns.org, the official website for theInternational Consensus on Antinuclear Antibody (ZION)Patterns (ICAP).Performed at: - [facility] [place] [id number] Director: Oliver Rojo PhD, Phone: [phone] Serum or plasma albumin/glob ulin mass ratioOrdered By: Vick Payne on 10-13-2023 Albumin/Globulin [Mass ratio] 2.0 {ratio} Normal [facility] Comment on above: Performed By: #### C MP, CRP, ESR, ADDONUAPLUS, TEST, UA, CBC, THYROID SC #### [address] #### PROG, RA, TPO, EST, ZION #### [facility] , Serum or plasma anion gap de terminationOrdered By: Vick Payne on 10-13-2023 Anion gap [Moles/Vol] 9.5 mmol/L Normal 6.0-15.0 [facility] Comment on above: Performed By: #### C MP, CRP, ESR, ADDONUAPLUS, TEST, UA, CBC, THYROID SC #### [address] #### PROG, RA, TPO, EST, ZION #### [facility] , Serum or plasma progesterone measurement (mass/volume)Ordered By: Vick Payne on 10-13-2023 Progesterone [Mass/Vol] 0.2 ng/mL . [facility] Comment on above: Follicular phase 0.1 - 0.9 Luteal phase 1.8 - 23.9 Ovulation phase 0.1 - 12.0 First trimester 11.0 - 44.3 Second trimester 25.4 - 83.3 Third trimester 58.7 - 214.0 Postmenopausal 0.0 - 0.1 Serum or plasma rheumatoid f actor measurement (units/volume)Ordered By: Vick Payne on 10-13-2023 Rheumatoid factor Qn [IU]/mL <14.0 [facility] Comment on above: Performed at: [facility] [address] [id number] Director: Oliver Rojo PhD, Phone: [phone] Serum or plasma thyroperoxid ase antibody assay (units/volume)Ordered By: Vick Payne on 10-13-2023 TPO Ab Qn 137 [IU]/mL High 0-34 [facility] Comment on above: Performed at: [id number] [place], [place] [id number] Director: Oliver Rojo PhD, Phone: [phone] Sodium [Moles/volume] in Ser um or PlasmaOrdered By: Vick Payne on 10-13-2023 Sodium [Moles/Vol] 140 mmol/L Normal 136-[address] [facility] Comment on above: Performed By: #### C MP, CRP, ESR, ADDONUAPLUS, TEST, UA, CBC, THYROID SC #### [facility] [address] [place] [address] #### PROG, RA, TPO, EST, ZION #### [facility] , Specific gravity Test strip (U) [Rel density]Ordered By: Vick Payne on 10-13-2023 Specific gravity (U) [Rel density] 1.022 1.001-1.03 0 [facility] Testosteroneon 10-13-2023 Testosterone 0.30 ng/mL Normal 0.00-0.75 [facility] Comment on above: Result Comment: PERF ORMED BY: [place] [address] PATHOLOGIST EXCELLENCE MANAGER MICHELLE PLATT M.D. Performed By: #### C MP, CRP, ESR, ADDONUAPLUS, TEST, UA, CBC, THYROID SC #### [facility] [address] [place] [address] #### PROG, RA, TPO, EST, ZION #### [facility] , Testosterone [Mass/volume] i n Serum or PlasmaOrdered By: Vick Payne on 10-13-2023 Testosterone [Mass/Vol] 0.30 ng/mL 0.00-0.75 [facility] Thyroid Peroxidase Antibodie son 10-13-2023 Thyroid Peroxidase Antibodies 137 High 0-34 [facility] Comment on above: Result Comment: Perf ormed at: - [facility] [address] [id number] Automation Operator: Oliver Rojo PhD, Phone: [phone] Performed By: #### C MP, CBC, LIPID, THYROID SC #### [address] Thyrotropin [Units/volume] i n Serum or PlasmaOrdered By: Vick Payne on 10-13-2023 TSH Qn 0.01 m[IU]/L Low 0.45-5.33 [facility] Comment on above: Result Comment: PERF ORMED BY: [place] [address] PATHOLOGIST EXCELLENCE MANAGER MICHELLE PLATT M.D. Performed By: #### C MP, CBC, LIPID, THYROID SC #### [facility] [address] [place] [address] Thyroxine (T4) free [Mass/vo lume] in Serum or PlasmaOrdered By: Vick Payne on 10-13-2023 Free T4 [Mass/Vol] 1.18 ng/dL High 0.61-1.[address] [facility] Comment on above: Performed By: #### C MP, CBC, LIPID, THYROID SC #### [facility] [address] [place] [address] Total estrogen measurementOr dered By: Vick Payne on 10-13-2023 Estrogen [Mass/Vol] 62 pg/mL 40-244 [facility] Comment on above: Prepubertal < 40 Fem melanie Cycle: 1-10 Days 16 - 328 11-20 Days 34 - 501 21-30 Days 48 - 350 Post-Menopausal 40 - 244Performed at: - [facility] [address] [id number] Director: Martina Ross MD, Phone: [phone] Urea nitrogen [Mass/volume] in Serum or PlasmaOrdered By: Vick Payne on 10-13-2023 Urea nitrogen [Mass/Vol] 16 mg/dL Normal 7-25 [facility] Comment on above: Performed By: #### C MP, CRP, ESR, ADDONUAPLUS, TEST, UA, CBC, THYROID SC #### [address] #### PROG, RA, TPO, EST, ZION #### [facility] , Urinalysison 10-13-2023 Bilirubin,Urine Negative Normal Negative [facility] Comment on above: Order Comment: Name Collection Type:: Clean-Voided Midstream Performed By: #### C MP, CRP, ESR, ADDONUAPLUS, TEST, UA, CBC, THYROID SC #### [address] #### PROG, RA, TPO, EST, ZION #### [facility] , Performed By: #### C MP, CBC, LIPID, THYROID SC #### [address] Glucose Ql (U) Normal Normal Normal [facility] Comment on above: Order Comment: Name Collection Type:: Clean-Voided Midstream Performed By: #### C MP, CRP, ESR, ADDONUAPLUS, TEST, UA, CBC, THYROID SC #### [address] #### PROG, RA, TPO, EST, ZION #### [facility] , Performed By: #### C MP, CBC, LIPID, THYROID SC #### [address] Nitrite,Urine Negative Normal Negative [facility] Comment on above: Order Comment: Name Collection Type:: Clean-Voided Midstream Performed By: #### C MP, CRP, ESR, ADDONUAPLUS, TEST, UA, CBC, THYROID SC #### [address] #### PROG, RA, TPO, EST, ZION #### [facility] , Performed By: #### C MP, CBC, LIPID, THYROID SC #### [address] Occult Blood,Urine 2+ High Negative [facility] Comment on above: Order Comment: Name Collection Type:: Clean-Voided Midstream Result Comment: PERF ORMED BY: [place] [address] PATHOLOGIST EXCELLENCE MANAGER MICHELLE PLATT M.D. Performed By: #### C MP, CRP, ESR, ADDONUAPLUS, TEST, UA, CBC, THYROID SC #### [address] #### PROG, RA, TPO, EST, ZION #### [facility] , Performed By: #### C MP, CBC, LIPID, THYROID SC #### [address] Protein,Urine Negative Normal Negative [facility] Comment on above: Order Comment: Name Collection Type:: Clean-Voided Midstream Performed By: #### C MP, CRP, ESR, ADDONUAPLUS, TEST, UA, CBC, THYROID SC #### [address] #### PROG, RA, TPO, EST, ZION #### [facility] , Performed By: #### C MP, CBC, LIPID, THYROID SC #### [address] Specificy [place],Urine 1.022 Normal 1.001-1.03 0 [facility] Comment on above: Order Comment: Name Collection Type:: Clean-Voided Midstream Performed By: #### C MP, CRP, ESR, ADDONUAPLUS, TEST, UA, CBC, THYROID SC #### [address] #### PROG, RA, TPO, EST, ZION #### [facility] , Performed By: #### C MP, CBC, LIPID, THYROID SC #### [address] Urobilinogen,Urine Normal Normal Normal [facility] Comment on above: Order Comment: Name Collection Type:: Clean-Voided Midstream Performed By: #### C MP, CRP, ESR, ADDONUAPLUS, TEST, UA, CBC, THYROID SC #### [address] #### PROG, RA, TPO, EST, ZION #### [facility] , Performed By: #### C MP, CBC, LIPID, THYROID SC #### [address] Urine appearanceOrdered By: Vick Payne on 10-13-2023 Appearance (U) Clear Normal Clear [facility] Comment on above: Order Comment: Name Collection Type:: Clean-Voided Midstream Performed By: #### C MP, CRP, ESR, ADDONUAPLUS, TEST, UA, CBC, THYROID SC #### [address] #### PROG, RA, TPO, EST, ZION #### [facility] , Performed By: #### C MP, CBC, LIPID, THYROID SC #### [address] Urobilinogen Test strip (U) [Mass/Vol]Ordered By: Vick Payne on 10-13-2023 Urobilinogen (U) [Mass/Vol] Normal mg/dL Normal [facility] pH of Urine by Test stripOrd ered By: Vick Payne on 10-13-2023 pH (U) 5.5 [pH] Normal 5.0-9.0 [facility] Comment on above: Order Comment: Name Collection Type:: Clean-Voided Midstream Performed By: #### C MP, CRP, ESR, ADDONUAPLUS, TEST, UA, CBC, THYROID SC #### [place] [address] [address] [address] #### PROG, RA, TPO, EST, ZION #### [facility] , Performed By: #### C MP, CBC, LIPID, THYROID SC #### [facility] [address] [id number] [facility] MR LUMBAR SPINE WO IV CONTRA STon 07-22-2023 MR LUMBAR SPINE WO IV CONTRAST Interpreted By: Mo Sierra, STUDY: MR LUMBAR SPINE WO IV CONTRAST; 07/22/2023 8:46 am INDICATION: Signs/Symptoms:low back pain. COMPARISON: None. ACCESSION NUMBER(S): [id number] ORDERING CLINICIAN: TAQUERIA ROJAS TECHNIQUE: Sagittal STIR, sagittal T2, sagittal T1, axial T2, axial T1 weighted MRI images of the lumbar spine were obtained without intravenous contrast administration. FINDINGS: The coronal motor teacher images demonstrate a minimal levocurvature of the lumbar spine. There are degenerative signal changes noted along endplates within lumbar and visualized lower thoracic region. There are scattered hemangiomas and/or focal fatty rests. The visualized spinal cord demonstrates no signal abnormality within it. The conus medullaris is normally positioned terminating at the L1/2 level. There is diminished disc signal at the L5/S1 and L2/3 levels along with loss of disc height at the L2/3 level compatible with degenerative disc disease. At the L5/S1 level, there is a linear focus of bright signal on the STIR and T2 weighted images noted along the posterior margin of the disc compatible with an annular tear. There is a mild posterior disc bulge along with degenerative facet changes and mild ligamentum flavum hypertrophy contributing to mild spinal canal narrowing. There is mild encroachment upon the neural foramen bilaterally. At the L4/L5 level, there is a minimal posterior disc bulge along with mild degenerative facet changes without significant spinal canal or neural foraminal narrowing. At the L3/L4 level, there is a minimal posterior disc bulge and degenerative facet changes without significant spinal canal or neural foraminal narrowing. At the L2/L3 level, there is posterior osteophytic spurring and posterior disc bulge along with degenerative facet changes contribute to mild spinal canal narrowing. There is mild encroachment upon the inferior recesses of the neural foramen right greater than left. At the L1/L2 level, there is a minimal posterior disc bulge and mild degenerative facet changes without significant spinal canal or neural foraminal narrowing. At the T12/L1 level, there is a minimal posterior disc bulge and mild degenerative facet changes without significant spinal canal or neural foraminal narrowing. At the T11/12 level, the sagittal images demonstrate minimal posterior osteophytic spurring and posterior disc bulge without significant spinal canal or neural foraminal narrowing. No axial images were obtained through this level limiting further evaluation. IMPRESSION: The coronal motor teacher images demonstrate a minimal levocurvature of the lumbar spine. There is multilevel spondylosis as described above. MACRO: None. Signed by: Mo Sierra 07/22/2023 8:54 AM Dictation workstation: [id number] [facility] Comment on above: Order Comment: JO ANN WALSH MR Lumbar spine WO contrasto n 07-22-2023 The coronal motor teacher im ages demonstrate a minimal levocurvature of the lumbar spine. There is multilevel spondylosis as described above. MACRO: None. Signed by: Mo Sierra 07/22/2023 8:54 AM Dictation workstation: [id number] [facility] Interpreted By: Mo Landin, STUDY: MR LUMBAR SPINE WO IV CONTRAST; 07/22/2023 8:46 am INDICATION: Signs/Symptoms:low back pain. COMPARISON: None. ACCESSION NUMBER(S): [id number] ORDERING CLINICIAN: TAQUERIA ROJAS TECHNIQUE: Sagittal STIR, sagittal T2, sagittal T1, axial T2, axial T1 weighted MRI images of the lumbar spine were obtained without intravenous contrast administration. FINDINGS: The coronal motor teacher images demonstrate a minimal levocurvature of the lumbar spine. There are degenerative signal changes noted along endplates within lumbar and visualized lower thoracic region. There are scattered hemangiomas and/or focal fatty rests. The visualized spinal cord demonstrates no signal abnormality within it. The conus medullaris is normally positioned terminating at the L1/2 level. There is diminished disc signal at the L5/S1 and L2/3 levels along with loss of disc height at the L2/3 level compatible with degenerative disc disease. At the L5/S1 level, there is a linear focus of bright signal on the STIR and T2 weighted images noted along the posterior margin of the disc compatible with an annular tear. There is a mild posterior disc bulge along with degenerative facet changes and mild ligamentum flavum hypertrophy contributing to mild spinal canal narrowing. There is mild encroachment upon the neural foramen bilaterally. At the L4/L5 level, there is a minimal posterior disc bulge along with mild degenerative facet changes without significant spinal canal or neural foraminal narrowing. At the L3/L4 level, there is a minimal posterior disc bulge and degenerative facet changes without significant spinal canal or neural foraminal narrowing. At the L2/L3 level, there is posterior osteophytic spurring and posterior disc bulge along with degenerative facet changes contribute to mild spinal canal narrowing. There is mild encroachment upon the inferior recesses of the neural foramen right greater than left. At the L1/L2 level, there is a minimal posterior disc bulge and mild degenerative facet changes without significant spinal canal or neural foraminal narrowing. At the T12/L1 level, there is a minimal posterior disc bulge and mild degenerative facet changes without significant spinal canal or neural foraminal narrowing. At the T11/12 level, the sagittal images demonstrate minimal posterior osteophytic spurring and posterior disc bulge without significant spinal canal or neural foraminal narrowing. No axial images were obtained through this level limiting further evaluation. [facility] Mo Sierra M D - 07/22/2023 Interpreted By: Mo Sierra, STUDY: MR LUMBAR SPINE WO IV CONTRAST; 07/22/2023 8:46 am INDICATION: Signs/Symptoms:low back pain. COMPARISON: None. ACCESSION NUMBER(S): [id number] ORDERING CLINICIAN: TAQUERIA ROJAS TECHNIQUE: Sagittal STIR, sagittal T2, sagittal T1, axial T2, axial T1 weighted MRI images of the lumbar spine were obtained without intravenous contrast administration. FINDINGS: The coronal motor teacher images demonstrate a minimal levocurvature of the lumbar spine. There are degenerative signal changes noted along endplates within lumbar and visualized lower thoracic region. There are scattered hemangiomas and/or focal fatty rests. The visualized spinal cord demonstrates no signal abnormality within it. The conus medullaris is normally positioned terminating at the L1/2 level. There is diminished disc signal at the L5/S1 and L2/3 levels along with loss of disc height at the L2/3 level compatible with degenerative disc disease. At the L5/S1 level, there is a linear focus of bright signal on the STIR and T2 weighted images noted along the posterior margin of the disc compatible with an annular tear. There is a mild posterior disc bulge along with degenerative facet changes and mild ligamentum flavum hypertrophy contributing to mild spinal canal narrowing. There is mild encroachment upon the neural foramen bilaterally. At the L4/L5 level, there is a minimal posterior disc bulge along with mild degenerative facet changes without significant spinal canal or neural foraminal narrowing. At the L3/L4 level, there is a minimal posterior disc bulge and degenerative facet changes without significant spinal canal or neural foraminal narrowing. At the L2/L3 level, there is posterior osteophytic spurring and posterior disc bulge along with degenerative facet changes contribute to mild spinal canal narrowing. There is mild encroachment upon the inferior recesses of the neural foramen right greater than left. At the L1/L2 level, there is a minimal posterior disc bulge and mild degenerative facet changes without significant spinal canal or neural foraminal narrowing. At the T12/L1 level, there is a minimal posterior disc bulge and mild degenerative facet changes without significant spinal canal or neural foraminal narrowing. At the T11/12 level, the sagittal images demonstrate minimal posterior osteophytic spurring and posterior disc bulge without significant spinal canal or neural foraminal narrowing. No axial images were obtained through this level limiting further evaluation. IMPRESSION: The coronal motor teacher images demonstrate a minimal levocurvature of the lumbar spine. There is multilevel spondylosis as described above. MACRO: None. Signed by: Mo Sierra 07/22/2023 8:54 AM Dictation workstation: [id number] [facility] Work Phone: Radiology Study observation (narrative) [facility] Work Phone: MR Lumbar spine WO contrastO rdered By: Mo Sierra on 07-22-2023 [facility] Work Phone: L Inj/Asp: R kneeon 07-21-19 Taqueria Gilliam MD 07/21/2023 12:03 PM L Inj/Asp: R knee on 07/21/2023 9:21 AM Indications: pain and diagnostic evaluation Details: 22 G needle, anteromedial approach Medications: 5 mL lidocaine 10 mg/mL (1 %); 2 mg triamcinolone acetonide 40 mg/mL Outcome: tolerated well, no immediate complications Procedure, treatment alternatives, risks and benefits explained, specific risks discussed. Consent was given by the patient. Immediately prior to procedure a time out was called to verify the correct patient, procedure, equipment, desktop support technician and site/side marked as required. Patient was prepped and draped in the usual sterile fashion. [facility] Work Phone: [facility] Work Phone: XR LUMBAR SPINE 4+ VIEWS WIT H FLEXION EXTENSIONon 07-05-2023 XR LUMBAR SPINE 4+ VIEWS WITH FLEXION EXTENSION Interpreted By: Taqueria Rojas, STUDY: XR LUMBAR SPINE 4+ VIEWS WITH FLEXION EXTENSION; 07/05/2023 8:17 am INDICATION: Signs/Symptoms:pain. ACCESSION NUMBER(S): [id number] ORDERING CLINICIAN: TAQUERIA ROJAS FINDINGS: AP lateral flexion extension x-rays of the lumbar spine show [id number] degenerative changes with some disc height loss and endplate irregularity. There is a grade 1 spondylolisthesis of L5-S1. There is no spondylolysis. There is no fractures. Lumbar lordosis is maintained. Range of motion with flexion and extension is preserved. There is a scoliosis of less than 5 degrees. Pedicles are visualized at all levels. Bony pelvis and hips are partially visualized and show mild bilateral hip degenerative changes. Signed by: Taqueria Rojas 07/05/2023 8:40 AM Dictation workstation: [id number] [facility] XR Lumbar spine Views W flex ion and W extensionon 07-05-2023 Interpreted By: Taqueria Rojas, STUDY: XR LUMBAR SPINE 4+ VIEWS WITH FLEXION EXTENSION; 07/05/2023 8:17 am INDICATION: Signs/Symptoms:pain. ACCESSION NUMBER(S): [id number] ORDERING CLINICIAN: TAQUERIA ROJAS FINDINGS: AP lateral flexion extension x-rays of the lumbar spine show rghc-le-vajnluli degenerative changes with some disc height loss and endplate irregularity. There is a grade 1 spondylolisthesis of L5-S1. There is no spondylolysis. There is no fractures. Lumbar lordosis is maintained. Range of motion with flexion and extension is preserved. There is a scoliosis of less than 5 degrees. Pedicles are visualized at all levels. Bony pelvis and hips are partially visualized and show mild bilateral hip degenerative changes. Signed by: Taqueria Rojas 07/05/2023 8:40 AM Dictation workstation: [id number] [facility] Taqueria Rojas MD - 07/05/2023 Interpreted By: Taqueria Rojas, STUDY: XR LUMBAR SPINE 4+ VIEWS WITH FLEXION EXTENSION; 07/05/2023 8:17 am INDICATION: Signs/Symptoms:pain. ACCESSION NUMBER(S): [id number] ORDERING CLINICIAN: TAQUERIA ROJAS FINDINGS: AP lateral flexion extension x-rays of the lumbar spine show [id number] degenerative changes with some disc height loss and endplate irregularity. There is a grade 1 spondylolisthesis of L5-S1. There is no spondylolysis. There is no fractures. Lumbar lordosis is maintained. Range of motion with flexion and extension is preserved. There is a scoliosis of less than 5 degrees. Pedicles are visualized at all levels. Bony pelvis and hips are partially visualized and show mild bilateral hip degenerative changes. Signed by: Taqueria Rojas 07/05/2023 8:40 AM Dictation workstation: [id number] [facility] Work Phone: [facility] Work Phone: Radiology Study observation (narrative) [facility] Work Phone: Alanine aminotransferase [En zymatic activity/volume] in Serum or PlasmaOrdered By: Vick Payne on 05-16-2023 ALT [Catalytic activity/Vol] 13 U/L Normal 7-52 [facility] Comment on above: Performed By: #### C MP, CBC, LIPID, THYROID SC #### [facility] [address] [place] [address] Albumin [Mass/volume] in Ser um or Plasma by Bromocresol green (BCG) dye binding methoOrdered By: Vick Payne on 05-16-2023 Albumin BCG dye [Mass/Vol] 4.3 g/dL 3.5-5.7 [facility] Alkaline phosphatase [Enzyma tic activity/volume] in Serum or PlasmaOrdered By: Vick Payne on 05-16-2023 ALP [Catalytic activity/Vol] 68 U/L Normal 34-104 [facility] Comment on above: Performed By: #### C MP, CBC, LIPID, THYROID SC #### [address] Aspartate aminotransferase [ Enzymatic activity/volume] in Serum or PlasmaOrdered By: Vick Payne on 05-16-2023 AST [Catalytic activity/Vol] 18 U/L Normal 13-39 [facility] Comment on above: Performed By: #### C MP, CBC, LIPID, THYROID SC #### [address] Automated basophil %Ordered By: Vick Payne on 05-16-2023 Basophils/100 WBC (Bld) 0.8 % Normal . [facility] Comment on above: Performed By: #### C MP, CBC, LIPID, THYROID SC #### [facility] [address] [place] [address] Automated basophil countOrde red By: Vick Payne on 05-16-2023 Basophils (Bld) [#/Vol] 0.0 10*3/uL Normal 0.0-0.2 [facility] Comment on above: Result Comment: PERF ORMED BY: [place] [address] PATHOLOGIST EXCELLENCE MANAGER MICHELLE PLATT M.D. Performed By: #### C MP, CBC, LIPID, THYROID SC #### [facility] [address] [place] [address] Automated blood monocyte cou ntOrdered By: Vick Payne on 05-16-2023 Monocytes (Bld) [#/Vol] 0.6 10*3/uL Normal 0.0-0.8 [facility] Comment on above: Performed By: #### C MP, CBC, LIPID, THYROID SC #### [address] Automated eosinophil %Ordere d By: Vick Payne on 05-16-2023 Eosinophils/100 WBC (Bld) 1.9 % Normal . [facility] Comment on above: Performed By: #### C MP, CBC, LIPID, THYROID SC #### [address] Automated eosinophil countOr dered By: Vick Payne on 05-16-2023 Eosinophils (Bld) [#/Vol] 0.1 10*3/uL Normal 0.0-0.45 [facility] Comment on above: Performed By: #### C MP, CBC, LIPID, THYROID SC #### [address] Automated monocyte %Ordered By: Vick Payne on 05-16-2023 Monocytes/100 WBC (Bld) 11.0 % Normal . [facility] Comment on above: Performed By: #### C MP, CBC, LIPID, THYROID SC #### [address] Automated neutrophil %Ordere d By: Vick Payne on 05-16-2023 Neutrophils/100 WBC (Bld) 56.1 % Normal . [facility] Comment on above: Performed By: #### C MP, CBC, LIPID, THYROID SC #### [address] Bilirubin.total [Mass/volume ] in Serum or PlasmaOrdered By: Vick Payne on 05-16-2023 Bilirubin [Mass/Vol] 0.5 mg/dL Normal 0.3-1.0 [facility] Comment on above: Performed By: #### C MP, CBC, LIPID, THYROID SC #### [address] Calcium [Mass/volume] in Ser um or PlasmaOrdered By: Vick Payne on 05-16-2023 Calcium [Mass/Vol] 9.5 mg/dL Normal 8.6-10.[address] [facility] Comment on above: Performed By: #### C MP, CBC, LIPID, THYROID SC #### [address] Carbon dioxide, total [Moles /volume] in Serum or PlasmaOrdered By: Vick Payne on 05-16-2023 CO2 [Moles/Vol] 31.9 mmol/L High 21.0-31.0 [facility] Comment on above: Performed By: #### C MP, CBC, LIPID, THYROID SC #### [facility] [address] Chloride [Moles/volume] in S noam or PlasmaOrdered By: Vick Payne on 05-16-2023 Chloride [Moles/Vol] 107 mmol/L Normal 98-107 [facility] Comment on above: Performed By: #### C MP, CBC, LIPID, THYROID SC #### [facility] [address] Cholesterol [Mass/volume] in Serum or PlasmaOrdered By: Vick Payne on 05-16-2023 Cholesterol [Mass/Vol] 209 mg/dL High 140-200 [facility] Comment on above: Chol less than 200 m g/dl low riskChol 201-239 mg/dl borderline riskChol 240 mg/dl and greater high risk Result Comment: Chol less than 200 mg/dl low risk Chol 201-239 mg/dl borderline risk Chol 240 mg/dl and greater high risk Performed By: #### C MP, CBC, LIPID, THYROID SC #### [facility] [address] Cholesterol in LDL Calc [Mas s/Vol]Ordered By: Vick Payne on 05-16-2023 Cholesterol in LDL [Mass/Vol] 122 mg/dL 0-100 [facility] Comment on above: LDL ATP III CLASSIFI CATIONLDL less than 100 mg/dL OptimalLDL 100-129 mg/dL Near or above optimalLDL 130-159 mg/dL Borderline highLDL 160-189 mg/dL HighLDL greater than 189 mg/dL Very high Cholesterol in VLDL Calc [Ma ss/Vol]Ordered By: Vick Payne on 05-16-2023 Cholesterol in VLDL [Mass/Vol] 15 mg/dL [facility] Complete Blood Count Auto Di ffon 05-16-2023 Mean Corpuscular HGB Conc 33.0 g/dL Normal 32.0-35.0 [facility] Comment on above: Performed By: #### C MP, CBC, LIPID, THYROID SC #### [address] NRBC% 0.2 /100{WBC} Normal 0-0.5 [facility] Comment on above: Performed By: #### C MP, CBC, LIPID, THYROID SC #### [address] Comprehensive Metabolic Pane benny 05-16-2023 Albumin [Mass/Vol] 4.3 g/dL Normal 3.5-5.7 [facility] Comment on above: Performed By: #### C MP, CBC, LIPID, THYROID SC #### [address] GFR/1.73 sq M.predicted MDRD (S/P/Bld) [Vol rate/Area] mL/min/{1.73_m2} Normal [facility] Comment on above: Performed By: #### C MP, CBC, LIPID, THYROID SC #### [address] Creatinine [Mass/volume] in Serum or PlasmaOrdered By: Vick Payne on 05-16-2023 Creatinine [Mass/Vol] 0.79 mg/dL Normal 0.60-1.20 [facility] Comment on above: Performed By: #### C MP, CBC, LIPID, THYROID SC #### [address] Erythrocyte distribution wid th [Ratio] by Automated countOrdered By: Vick Payen on 05-16-2023 Erythrocyte distribution width (RBC) [Ratio] 14.5 % Normal 11.9-15.3 [facility] Comment on above: Performed By: #### C MP, CBC, LIPID, THYROID SC #### [address] Erythrocytes [#/volume] in B lood by Automated countOrdered By: Vick Payne on 05-16-2023 RBC (Bld) [#/Vol] 4.68 10*6/uL Normal 3.60-5.00 [facility] Comment on above: Performed By: #### C MP, CBC, LIPID, THYROID SC #### [facility] [address] Glucose [Mass/volume] in Ser um or PlasmaOrdered By: Vick Payne on 05-16-2023 Glucose [Mass/Vol] 97 mg/dL Normal 70-[address] [facility] Comment on above: ADA recommended refe rence rangeRandom Glucose Reference Range is dependent on time and content of last meal. Glucose of more than 200 mg/dL in a nonstressed, ambulatory subject supports the diagnosis of Diabetes Mellitus. Result Comment: [place] om Glucose Reference Range is dependent on time and content of last meal. Glucose of more than 200 mg/dL in a nonstressed, ambulatory subject supports the diagnosis of Diabetes Mellitus. ADA recommended reference range Performed By: #### C MP, CBC, LIPID, THYROID SC #### [address] Hematocrit [Volume Fraction] of Blood by Automated countOrdered By: Vick Payne on 05-16-2023 Hematocrit (Bld) [Volume fraction] 42.1 % Normal 34.0-46.4 [facility] Comment on above: Performed By: #### C MP, CBC, LIPID, THYROID SC #### [facility] [address] [place] [address] Hemoglobin [Mass/volume] in BloodOrdered By: Vick Payne on 05-16-2023 Hemoglobin (Bld) [Mass/Vol] 13.9 g/dL Normal 11.8-15.4 [facility] Comment on above: Performed By: #### C MP, CBC, LIPID, THYROID SC #### [address] Leukocytes [#/volume] correc kb for nucleated erythrocytes in Blood by Automated counOrdered By: Vick Payne on 05-16-2023 WBC corrected for nucl RBC Auto (Bld) [#/Vol] 5.1 10*3/uL 3.8-11.6 [facility] Leukocytes [#/volume] in Blo od by Automated countOrdered By: Vick Payne on 05-16-2023 WBC (Bld) [#/Vol] 5.1 10*3/uL Normal 3.8-11.[address] [facility] Comment on above: Performed By: #### C MP, CBC, LIPID, THYROID SC #### [address] Lipid Panelon 05-16-2023 LDL Cholesterol,Calculated 122 mg/dL High 0-100 [facility] Comment on above: Result Comment: LDL ATP III CLASSIFICATION LDL less than 100 mg/dL Optimal LDL 100-129 mg/dL Near or above optimal LDL 130-159 mg/dL Borderline high LDL 160-189 mg/dL High LDL greater than 189 mg/dL Very high Performed By: #### C MP, CBC, LIPID, THYROID SC #### [address] Triglyceride w/Reflex 78 mg/dL Normal 0-149 [facility] Comment on above: Result Comment: TRIG ATP III CLASSIFICATION TRIG less than 150 mg/dL Normal TRIG 150-199 mg/dL Borderline high TRIG 200-500 mg/dL High TRIG greater than 500 mg/dL Very high Standard traceable to the Center for Disease Conrtrol and Prevention (CDC) test method. Performed By: #### C MP, CBC, LIPID, THYROID SC #### [address] VLDL CHOLESTEROL 15 mg/dL Normal [facility] Comment on above: Performed By: #### C MP, CBC, LIPID, THYROID SC #### [address] Lymphocytes [#/volume] in Bl ood by Automated countOrdered By: Vick Payne on 05-16-2023 Lymphocytes (Bld) [#/Vol] 1.5 10*3/uL Normal 1.00-4.8 [facility] Comment on above: Performed By: #### C MP, CBC, LIPID, THYROID SC #### [address] Lymphocytes/100 leukocytes i n Blood by Automated countOrdered By: Vick Payne on 05-16-2023 Lymphocytes/100 WBC (Bld) 30.2 % Normal . [facility] Comment on above: Performed By: #### C MP, CBC, LIPID, THYROID SC #### [facility] [address] [place] [address] MCH [Entitic mass] by Automa kb countOrdered By: Vick Payne on 05-16-2023 MCH (RBC) [Entitic mass] 29.6 pg Normal 24.7-34.3 [facility] Comment on above: Performed By: #### C MP, CBC, LIPID, THYROID SC #### [facility] [address] [place] [address] MCHC Auto (RBC) [Mass/Vol]Or dered By: Vick Payne on 05-16-2023 MCHC (RBC) [Mass/Vol] 33.0 g/dL 32.0-35.0 [facility] MCV [Entitic volume] by Auto mated countOrdered By: Vick Payne on 05-16-2023 MCV (RBC) [Entitic vol] 89.9 fL Normal 80-100 [facility] Comment on above: Performed By: #### C MP, CBC, LIPID, THYROID SC #### [facility] [address] [place] [address] Neutrophils [#/volume] in Bl ood by Automated countOrdered By: Vick Payne on 05-16-2023 Neutrophils (Bld) [#/Vol] 2.9 10*3/uL Normal 1.8-7.7 [facility] Comment on above: Performed By: #### C MP, CBC, LIPID, THYROID SC #### [facility] [address] [place] [address] No Panel InformationOrdered By: Vick Payne on 05-16-2023 Estimated GFR (CKD-EPI) > 60.0 mL/Min [facility] Creatinine Clearance (Chem N/A [facility] Nucleated erythrocytes [Pres ence] in Blood by Automated countOrdered By: Vick Payne on 05-16-2023 Nucleated RBC Auto Ql (Bld) 0.2 /100{WBC} 0-0.5 [facility] Platelet mean volume [Entiti c volume] in Blood by Automated countOrdered By: Vick Payne on 05-16-2023 Platelet mean volume (Bld) [Entitic vol] 7.2 fL Normal 6.3-10.7 [facility] Comment on above: Performed By: #### C MP, CBC, LIPID, THYROID SC #### [facility] [address] Platelets [#/volume] in Bloo d by Automated countOrdered By: Vick Payne on 05-16-2023 Platelets (Bld) [#/Vol] 257 10*3/uL Normal 150-450 [facility] Comment on above: Performed By: #### C MP, CBC, LIPID, THYROID SC #### [address] Potassium [Moles/volume] in Serum or PlasmaOrdered By: Vick Payne on 05-16-2023 Potassium [Moles/Vol] 4.6 mmol/L Normal 3.5-5.1 [facility] Comment on above: Performed By: #### C MP, CBC, LIPID, THYROID SC #### [address] Protein [Mass/volume] in Ser um or PlasmaOrdered By: Vick Payne on 05-16-2023 Protein [Mass/Vol] 6.5 g/dL Normal 6.4-8.[address] [facility] Comment on above: Performed By: #### C MP, CBC, LIPID, THYROID SC #### [address] Serum globulin measurement b y calculation (mass/volume)Ordered By: Vick Payne on 05-16-2023 Globulin (S) [Mass/Vol] 2.2 g/dL [facility] Comment on above: Performed By: #### C MP, CBC, LIPID, THYROID SC #### [address] Serum or plasma albumin/glob ulin mass ratioOrdered By: Vick Payne on 05-16-2023 Albumin/Globulin [Mass ratio] 2.0 {ratio} [facility] Comment on above: Performed By: #### C MP, CBC, LIPID, THYROID SC #### [address] Serum or plasma anion gap de terminationOrdered By: Vick Payne on 05-16-2023 Anion gap [Moles/Vol] 7.7 mmol/L Normal 6.0-15.0 [facility] Comment on above: Performed By: #### C MP, CBC, LIPID, THYROID SC #### [address] Serum or plasma high density lipoprotein (HDL) cholesterol measurementOrdered By: Vick Payne on 05-16-2023 Cholesterol in HDL [Mass/Vol] 71 mg/dL Normal 23-92 [facility] Comment on above: HDL CHOL ATP-III CLA SSIFICATION Cardiovascular RiskHDL > or equal to 60 mg/dL LOWHDL < 40 mg/dL HIGH Result Comment: HDL CHOL ATP-III CLASSIFICATION Cardiovascular Risk HDL > or equal to 60 mg/dL LOW HDL < 40 mg/dL HIGH Performed By: #### C MP, CBC, LIPID, THYROID SC #### [address] Serum or plasma total choles terol/high density lipoprotein (HDL) cholesterol mass ratOrdered By: Vick Payne on 05-16-2023 Cholesterol.total/Chol esterol in HDL [Mass ratio] 2.9 {ratio} Normal <5.0 [facility] Comment on above: Performed By: #### C MP, CBC, LIPID, THYROID SC #### [address] Sodium [Moles/volume] in Ser um or PlasmaOrdered By: Vick Payne on 05-16-2023 Sodium [Moles/Vol] 142 mmol/L Normal 136-[address] [facility] Comment on above: Performed By: #### C MP, CBC, LIPID, THYROID SC #### [address] Thyrotropin [Units/volume] i n Serum or PlasmaOrdered By: Vick Payne on 05-16-2023 TSH Qn 0.85 m[IU]/L Normal 0.45-5.33 [facility] Comment on above: Result Comment: PERF ORMED BY: [place] [address] PATHOLOGIST EXCELLENCE MANAGER MICHELLE PLATT M.D. Performed By: #### C MP, CBC, LIPID, THYROID SC #### [address] Thyroxine (T4) free [Mass/vo lume] in Serum or PlasmaOrdered By: Vick Payne on 05-16-2023 Free T4 [Mass/Vol] 0.79 ng/dL Normal 0.61-1.[address] [facility] Comment on above: Performed By: #### C MP, CBC, LIPID, THYROID SC #### [address] Triglyceride [Mass/volume] i n Serum or PlasmaOrdered By: Vick Payne on 05-16-2023 Triglyceride [Mass/Vol] 78 mg/dL 0-149 [facility] Comment on above: TRIG ATP III CLASSIF ICATIONTRIG less than 150 mg/dL NormalTRIG 150-199 mg/dL Borderline highTRIG 200-500 mg/dL High TRIG greater than 500 mg/dL Very highStandard traceable to the Center for Disease Conrtrol and Prevention (CDC) test method. Urea nitrogen [Mass/volume] in Serum or PlasmaOrdered By: Vick Payne on 05-16-2023 Urea nitrogen [Mass/Vol] 20 mg/dL Normal 7-25 [facility] Comment on above: Performed By: #### C MP, CBC, LIPID, THYROID SC #### [address] L Inj/Asp: R kneeon 03-24-19 Ofelia Maher MA 03/24/2023 12:16 PM L Inj/Asp: R knee on 03/24/2023 11:51 AM Indications: pain and diagnostic evaluation Details: 22 G needle, anteromedial approach Medications: 5 mL lidocaine 10 mg/mL (1 %); 2 mL betamethasone acet,sod phos 6 mg/mL Outcome: tolerated well, no immediate complications Procedure, treatment alternatives, risks and benefits explained, specific risks discussed. Consent was given by the patient. Immediately prior to procedure a time out was called to verify the correct patient, procedure, equipment, desktop support technician and site/side marked as required. Patient was prepped and draped in the usual sterile fashion. [facility] Work Phone: L Inj/Asp: R kneeOrdered By: Ofelia Maher on 03-24-2023 [facility] COVID/FLU RT-PCRon 3 SARS-CoV-2 (COVID-19) RNA [place]+probe Ql (Unsp spec) negagive [employer] Other COVID/FLU RT-PCR Negative [facility] [employer] Other XR chest 2V*on 11-29-2022 XR chest 2V* [facility] [employer] Other XR chest 2V* [facility] [employer] Other XR chest 2V* [address] [facility] [email or web address] Other XR chest 2V* [place] [address] [facility] [email or web address] Other XR chest 2V* XRay Report [employer] Other XR chest 2V* Signed [employer] Other XR chest 2V* Patient: Clarissa Paris MR#: [id number] [employer] Other XR chest 2V* [id number] [employer] Other XR chest 2V* : 1965 Acct:[id number] [employer] Other XR chest 2V* Age/Sex: 56 / F ADM Date: 11/29/22 [employer] Other XR chest 2V* Loc: [id number] Room: pe: REG CLI [employer] Other XR chest 2V* Attending Dr: Herber Guido GRAIN THRESHER-C [employer] Other XR chest 2V* Copies to: Herber ortiz Lata DIRECTOR HOME-C [employer] Other XR chest 2V* Ordering Provider: Caryl Garcia Lata DIRECTOR HOME-C [employer] Other XR chest 2V* Date of Service: 11/29/22 [employer] Other XR chest 2V* XR/XR chest 2V*: Shortness of breath [employer] Other XR chest 2V* Plain film chest 2 view [employer] Other XR chest 2V* HISTORY: Shortness o f breath [employer] Other XR chest 2V* COMPARISON: 12/10/18 No rt [email or web address] Other XR chest 2V* FINDINGS: [employer] Other XR chest 2V* SUPPORT DEVICES: None [employer] Other XR chest 2V* POSTSURGICAL CHANGES : None [employer] Other XR chest 2V* HEART: Within normal limits [employer] Other XR chest 2V* PULMONARY IRAIS: With in normal limits [employer] Other XR chest 2V* MEDIASTINUM: Unremarkable [employer] Other XR chest 2V* LUNGS AND PLEURA: No acute lung process, pleural effusion or pneumothorax identified. [employer] Other XR chest 2V* BONY STRUCTURES: Intact [employer] Other XR chest 2V* ADDITIONAL FINDINGS None [employer] Other XR chest 2V* X R/XR chest 2V* [employer] Other XR chest 2V* IMPRESSION: No acute process. [employer] Other XR chest 2V* Impression dictated by: Jose Lama M.D.11/29/2022 11:44 AM [employer] Other XR chest 2V* Dictation Location: [place] [address] [employer] Other XR chest 2V* Transcribed By: JUDITH 11/29/22 1144 [employer] Other XR chest 2V* Dictated By: Danny Lama DO 11/29/22 1142 [employer] Other XR chest 2V* Signed By: [employer] Other XR chest 2V* 11/29/22 1144 [email or web address] Other STREP A MOLECULAR (POC)on Procedural Control Valid [facility] Strep A (POCT) Negative Negative [facility] Established Visit (Orthopaed ic Surgery)on 08-02-2022 Established Visit (Orthopaedic Surgery) Diagnoses/Problems Assessed Primary osteoarthritis of both knees (715.16) (M17.0) Orders Knee pain We have injected a steroid medicine to help reduce swelling.; Status:Complete; Done: 02Aug2022 Provider Impressions TREATMENT PLAN: She got her second injection today. I will see her back in three to four months for another cortisone injection. If she fails to get relief for three months, we would then try the gel injections. Failing all of these measures, we would discuss knee replacement. We look forward to seeing the patient back when appropriate. She also was given a card with [facility]?s number. If her cortisone injection does wear off and only lasts a brief period of time, she would call [facility] to order gel injections. Before injection, the risks of this procedure including but not limited to; infection, local skin irritation, skin atrophy, calcification, continued pain or discomfort, elevated blood sugar, burning, failure to relieve pain, possible late infection were all discussed with the patient. The patient verbalized understanding and consented to the procedure. After informed consent was provided, patient identification was confirmed, and allergies were verified, the patient was appropriately positioned. The site was marked and time-out performed. The injection site was prepped in the usual sterile manner to provide a sterile environment. The skin was anesthetized with ethyl chloride spray. The aspiration/injection was performed with standard technique. The needle was withdrawn and the puncture site was secured with a Band-Aid. The patient tolerated the procedure well without complication. Post-procedure discomfort can be alleviated with additional medication, ice, elevation, and rest over the first 24 hours as recommended. The injection was 2 cc of Celestone and 5 cc lidocaine plain 1%, right knee. Chief Complaint Right knee pain- Wants injection History of Present IllnessRight knee known arthritis. She has days where the knee blows up, locks up and does not want to bend, then it unlocks. She has already had a scope and a cleanout. Cortisone injection help for about three months. 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 The skin was intact without breakdown or open wound. Old incisions if present were healed. There was a mild Mulu exam seen with some evidence of instability AND weakness in the collateral ligaments with varus/valgus stress AND laxity in the anterior and posterior planes. There was a negative Marino test, pivot shift test and posterior drawer sign with no foot drop, numbness or tingling. Sensation, reflexes, and pulses in the foot and ankle are preserved. There was an effusion. Range of motion showed good straight leg raise with extension to 0 degrees and flexion to 150 degrees. The patient had the ability to bear weight, but with discomfort. The patient?s gait was antalgic secondary to the discomfort. Severe pain medially. 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 I will see her back in three to four weeks. If she has not made improvement, advanced imaging studies, MRI of both knees would be in order to see if there is any additional cleanout possible before talking about arthroplasty. Before injection, the risks of this procedure including but not limited to; infection, local skin irritation, skin atrophy, calcification, continued pain or discomfort, elevated blood sugar, burning, failure to relieve pain, possible late infection were all discussed with the patient. The patient verbalized understanding and consented to the procedure. After informed consent was provided, patient identification was confirmed, and allergies were verified, the patient was appropriately positioned. The site was marked and time-out performed. The injection site was prepped in the usual sterile manner to provide a sterile environment. The skin was anesthetized with ethyl chloride spray. The aspiration/injection was performed with standard technique. The needle was withdrawn and the puncture site was secured with a Band-Aid. The patient tolerated the procedure well without complication. Post-procedure discomfort can be alleviated with additional medication, ice, elevation, and rest over the first 24 hours as recommended. The injection was 2 cc of Celestone and 5 cc lidocaine plain 1%, left knee. Before injection, the risks of this procedure including but not limited to; infection, local skin irritation, skin atrophy, calcification, continued pain or discomfort, elevated blood sugar, burning, failure to relieve pain, possible late infection were all discussed with the patient. The patient verbalized understanding and consented to the procedure. After informed consent was provided, patient identification was confirmed, and allergies were verified, the patient was appropriately positioned. The site was marked and time-out performed. The injection site was prepped in the usual sterile manner to provide a sterile environment. The skin was anesthetized with ethyl chloride spray. The aspiration/injection was performed with standard technique. The needle was withdrawn and the puncture site was secured with a Band-Aid. The patient tolerated the procedure well without complication. Post-procedure discomfort can be alleviated with additional medication, ice, elevation, and rest over the first 24 hours as recommended. The injection was 2 cc of Celestone and 5 cc lidocaine plain 1%, right knee. Chief Complaint B/L Knee Pain Xrays Today History of Present IllnessPatient previously seen for left knee. She had a scope, a cleanout, she had what sounds like PVNS, some arthritic change. 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 Today both knees inspected. The affected bilateral knees were examined and inspected and are tender to the touch along the medial and lateral aspect with catching, locking or mechanical symptoms. The skin was intact without breakdown or open wound. Old incisions if present were healed. There was a mild Mulu exam seen with some evidence of instability and weakness in the collateral ligaments with varus/valgus stress and laxity or in the anterior and posterior planes. There was a negative Marino?s test, pivot shift test and posterior drawer sign with no foot drop, numbness or tingling. Sensation, reflexes and pulses in the foot and ankle are preserved. There was an effusion. Range of motion showed good straight leg raise with flexion to 0 degrees and extension to 160 degrees bilaterally. The patient had the ability to bear weight, but with discomfort. The patient?s gait was antalgic secondary to the discomfort. Results/Data Xray Knee 1 or 2 View0 (more content not included)... Normal Scratch Hard KNEE 1 OR 2 VIEWSon 04-29-19 23 KNEE 1 OR 2 VIEWS Patient Name: CLARISSA PARIS STUDY: KNEE; 1 OR 2 VIEWS; Right; 04/28/2022 10:32 am INDICATION: pain M25.569: Knee pain. ACCESSION NUMBER(S): [id number] ORDERING CLINICIAN: TAQUERIA GILLIAM FINDINGS: AP lateral right knee x-rays are reviewed in the weight-bearing position. On the lateral view there is moderate patellofemoral arthrosis with joint space narrowing nearly [id number] arthrosis on the inferior 3rd of the patella. On the AP view again joint space narrowing is appreciated with near [id number] arthrosis both medially and laterally fairly neutral alignment is maintained overall moderate osteoarthritic change right knee Electronically signed by: TAQUERIA GILLIAM MD Normal [facility] Radiology[facility]-2022 XR Knee 1 or 2 Views Normal MP-C [facility] mherst DO Work Phone: COVID Quick Testingon 2022 Result Positive [employer] Other CT LUNG CANCER SCREENINGon 1 CT LUNG CANCER SCREENING EXAMINATION: CT LUNG CANCER SCREENING HISTORY: Nicotine dependence COMPARISON: 12/23/2020 CT LUNG CANCER SCREENING TECHNIQUE: Axial, Coronal, and Sagittal images were created without the administration of IV contrast material. Dose reduction techniques were achieved by using automated exposure control and/or adjustment of mA and/or kV according to patient size and/or use of iterative reconstruction technique. FINDINGS: LUNGS: No visible pulmonary disease. PLEURA: No mass, effusion, or pneumothorax. VASCULATURE: No abnormality. IRAIS: No mass or pathologic adenopathy. MEDIASTINUM: No mass or pathologic adenopathy. CARDIAC: No enlargement, pericardial thickening, or significant calcification. AORTA: No aneurysm or dissection. CHEST WALL: No mass or axillary adenopathy BONES: No bone lesion or fracture. LIMITED ABDOMEN: No suspicious findings. Limited images of the upper abdomen. OTHER: Negative. IMPRESSION: 1. Lung-RADS Category 1 Negative. No nodules and definitely benign nodules. Continue annual screening with LDCT in 12 months. Electronically authenticated by: RYAN ALEXANDER Date: 2021-12-24 18:07 Normal [facility] Albumin [Mass/volume] in Ser um or PlasmaOrdered By: Vick Payne on 12-12-2021 Albumin [Mass/Vol] 3.9 g/dL 3.2-5.[address] [facility] Basophils Auto (Bld) [#/Vol] Ordered By: Vick Payne on 12-12-2021 Basophils (Bld) [#/Vol] 0.1 10*3/uL 0.0-0.2 [facility] Basophils/100 WBC Auto (Bld) Ordered By: Vick Payne on 12-12-2021 Basophils/100 WBC (Bld) 1.1 % . [facility] Cholesterol [Mass/volume] in Serum or PlasmaOrdered By: Vick Payne on 12-12-2021 Cholesterol [Mass/Vol] 201 mg/dL 140-200 [facility] Comment on above: Chol less than 200 m g/dl low riskChol 201-239 mg/dl borderline riskChol 240 mg/dl and greater high risk Cholesterol in LDL Calc [Mas s/Vol]Ordered By: Vick Payne on 12-12-2021 Cholesterol in LDL [Mass/Vol] 131 mg/dL 0-100 [facility] Comment on above: LDL ATP III CLASSIFI CATIONLDL less than 100 mg/dL OptimalLDL 100-129 mg/dL Near or above optimalLDL 130-159 mg/dL Borderline highLDL 160-189 mg/dL HighLDL greater than 189 mg/dL Very high Cholesterol in VLDL Calc [Ma ss/Vol]Ordered By: Vick Payne on 12-12-2021 Cholesterol in VLDL [Mass/Vol] 8 mg/dL [facility] Creatinine and Glomerular fi ltration rate.predicted panel (S/P/Bld)Ordered By: Vick Payne on 12-12-2021 Creatinine [Mass/Vol] 0.78 mg/dL 0.44-1.03 [facility] Eosinophils Auto (Bld) [#/Vo l]Ordered By: Vick Payne on 12-12-2021 Eosinophils (Bld) [#/Vol] 0.0 10*3/uL 0.0-0.45 [facility] Eosinophils/100 WBC Auto (Bl d)Ordered By: Vick Payne on 12-12-2021 Eosinophils/100 WBC (Bld) 0.6 % . [facility] Erythrocyte distribution wid th Auto (RBC) [Ratio]Ordered By: Vick Payne on 12-12-2021 Erythrocyte distribution width (RBC) [Ratio] 14.6 % 11.9-15.3 [facility] Estimated glomerular filtrat ion rate (GFR) non- AmericanOrdered By: Vick Payne on 12-12-2021 GFR/1.73 sq M.predicted among non-blacks MDRD (S/P/Bld) [Vol rate/Area] > 60 mL/Min [facility] Globulin Calc (S) [Mass/Vol] Ordered By: Vick Payne on 12-12-2021 Globulin (S) [Mass/Vol] 2.2 g/dL [facility] Hematocrit Auto (Bld) [Volum e fraction]Ordered By: Vick Payne on 12-12-2021 Hematocrit (Bld) [Volume fraction] 43.8 % 34.0-46.4 [facility] Hemoglobin [Mass/volume] in BloodOrdered By: Vick Payne on 12-12-2021 Hemoglobin (Bld) [Mass/Vol] 14.4 g/dL 11.8-15.4 [facility] Iron [Mass/volume] in Serum or PlasmaOrdered By: Vick Payne on 12-12-2021 Iron [Mass/Vol] 85 ug/dL 40-150 [facility] Laboratory - Chemistry and C hemistry - challengeOrdered By: Vick Payne on 12-12-2021 Cobalamin (Vitamin B12) [Mass/Vol] 398 pg/mL 180-914 [facility] Laboratory - Hematology and Cell countsOrdered By: Vick Payne on 12-12-2021 Nucleated RBC/100 WBC (Bld) [Ratio] 0.0 % 0-0.5 [facility] Leukocytes [#/volume] in Blo od by Automated countOrdered By: Vick Payne on 12-12-2021 WBC (Bld) [#/Vol] 7.2 10*3/uL 4.5-11.[address] [facility] Lymphocytes Auto (Bld) [#/Vo l]Ordered By: Vick Payne on 12-12-2021 Lymphocytes (Bld) [#/Vol] 1.6 10*3/uL 1.00-4.8 [facility] Lymphocytes/100 WBC Auto (Bl d)Ordered By: Vick Payne on 12-12-2021 Lymphocytes/100 WBC (Bld) 22.5 % . [facility] MCH Auto (RBC) [Entitic mass ]Ordered By: Vick Payne on 12-12-2021 MCH (RBC) [Entitic mass] 30.3 pg 24.7-34.3 [facility] MCHC Auto (RBC) [Mass/Vol]Or dered By: Vick Payne on 12-12-2021 MCHC (RBC) [Mass/Vol] 32.8 g/dL 32.0-35.0 [facility] MCV Auto (RBC) [Entitic vol] Ordered By: Vick Payne on 12-12-2021 MCV (RBC) [Entitic vol] 92.1 fL 80-100 [facility] Monocytes Auto (Bld) [#/Vol] Ordered By: Vick Payne on 12-12-2021 Monocytes (Bld) [#/Vol] 0.8 10*3/uL 0.0-0.8 [facility] Monocytes/100 WBC Auto (Bld) Ordered By: Vick Payne on 12-12-2021 Monocytes/100 WBC (Bld) 11.0 % . [facility] Neutrophils Auto (Bld) [#/Vo l]Ordered By: Vick Payne on 12-12-2021 Neutrophils (Bld) [#/Vol] 4.7 10*3/uL 1.8-7.7 [facility] Neutrophils/100 WBC Auto (Bl d)Ordered By: Vick Payne on 12-12-2021 Neutrophils/100 WBC (Bld) 64.8 % . [facility] No Panel InformationOrdered By: Vick Payne on 12-12-2021 Estimated GFR () > 60 mL/Min [facility] Comment on above: GFR estimated refere nce range: According to KDOQI guidelines, <60 ml/min/1.73m2 is sufficient to diagnose a patient with chronic kidney disease. Pharmacy Creatinine Clearance (Chem N/A [facility] Platelet mean volume Auto (B ld) [Entitic vol]Ordered By: Vick Payne on 12-12-2021 Platelet mean volume (Bld) [Entitic vol] 7.7 fL 6.3-10.7 [facility] Platelets Auto (Bld) [#/Vol] Ordered By: Vick Payne on 12-12-2021 Platelets (Bld) [#/Vol] 269 10*3/uL 150-450 [facility] Protein [Mass/volume] in Ser um or PlasmaOrdered By: Vick Payne on 12-12-2021 Protein [Mass/Vol] 6.1 g/dL 6.1-7.[address] [facility] RBC Auto (Bld) [#/Vol]Ordere d By: Vick Payne on 12-12-2021 RBC (Bld) [#/Vol] 4.75 10*6/uL 3.60-5.00 [facility] Serum or plasma alanine mckeon otransferase measurement without P-5'-P (enzymatic activiOrdered By: Vick Payne on 12-12-2021 ALT No additional P-5'-P [Catalytic activity/Vol] 20 U/L [facility] Serum or plasma albumin/glob ulin mass ratioOrdered By: Vick Payne on 12-12-2021 Albumin/Globulin [Mass ratio] 1.8 {ratio} [facility] Serum or plasma alkaline telma sphatase measurement (enzymatic activity/volume)Ordered By: Vick Payne on 12-12-2021 ALP [Catalytic activity/Vol] 71 U/L 32-92 [facility] Serum or plasma anion gap de terminationOrdered By: Vick Payne on 12-12-2021 Anion gap [Moles/Vol] 12.5 mmol/L 6.0-15.0 [facility] Serum or plasma aspartate am inotransferase measurement (enzymatic activity/volume)Ordered By: Vick Payne on 12-12-2021 AST [Catalytic activity/Vol] 22 U/L 1042 [facility] Serum or plasma calcium scooter urement (mass/volume)Ordered By: Vick Payne on 12-12-2021 Calcium [Mass/Vol] 9.7 mg/dL 8.2-10.[address] [facility] Serum or plasma chloride zara surement (moles/volume)Ordered By: Vick Payne on 12-12-2021 Chloride [Moles/Vol] 108 mmol/L 95-114 [facility] Serum or plasma follitropin measurement (units/volume)Ordered By: Vick Payne on 12-12-2021 Follitropin Qn 75.1 m[IU]/mL [facility] Comment on above: FEMALE NORMALS (MAURICIO ENOPAUSE) MID-FOLLICULAR PHASE: 3.9-8.8 mIU/mL MID-CYCLE PEAK: 4.5-22.5 mIU/mL MID-LUTEAL PHASE: 1.8-5.1 mIU/mLFEMALE NORMALS (POSTMENOPAUSE): 16.7-113.6 mIU/mLMALE NORMALS: 1.3-19.3 mIU/mL Serum or plasma glucose scooter urement (mass/volume)Ordered By: Vick Payne on 12-12-2021 Glucose [Mass/Vol] 95 mg/dL 70-[address] [facility] Comment on above: ADA recommended refe rence rangeRandom Glucose Reference Range is dependent on time and content of last meal. Glucose of more than 200 mg/dL in a nonstressed, ambulatory subject supports the diagnosis of Diabetes Mellitus. Serum or plasma high density lipoprotein (HDL) cholesterol measurementOrdered By: Vick Payne on 12-12-2021 Cholesterol in HDL [Mass/Vol] 61 mg/dL 35-85 [facility] Comment on above: HDL CHOL ATP-III CLA SSIFICATION Cardiovascular RiskHDL > or equal to 60 mg/dL LOWHDL < 40 mg/dL HIGH Serum or plasma lutropin zara surement (units/volume)Ordered By: Vick Payne on 12-12-2021 Lutropin Qn 48.9 m[IU]/mL . [facility] Comment on above: Adult Female: Follic ular phase 2.4 - 12.6 Ovulation phase 14.0 - 95.6 Luteal phase 1.0 - 11.4 Postmenopausal 7.7 - 58.5 Serum or plasma potassium me asurement (moles/volume)Ordered By: Vick Payne on 12-12-2021 Potassium [Moles/Vol] 4.1 mmol/L 3.5-5.1 [facility] Serum or plasma progesterone measurement (mass/volume)Ordered By: Vick Payne on 12-12-2021 Progesterone [Mass/Vol] 0.2 ng/mL . [facility] Comment on above: Follicular phase 0.1 - 0.9 Luteal phase 1.8 - 23.9 Ovulation phase 0.1 - 12.0 First trimester 11.0 - 44.3 Second trimester 25.4 - 83.3 Third trimester 58.7 - 214.0 Postmenopausal 0.0 - 0.1Performed at: [facility] [address] [place], [place] [id number] Director: Oliver Rojo PhD, Phone: [phone] Serum or plasma sodium measu rement (moles/volume)Ordered By: Vick Payne on 12-12-2021 Sodium [Moles/Vol] 143 mmol/L 136-[address] [facility] Serum or plasma total biliru bin measurement (mass/volume)Ordered By: Vick Payne on 12-12-2021 Bilirubin [Mass/Vol] 0.9 mg/dL 0.3-1.2 [facility] Serum or plasma total carbon dioxide measurement (moles/volume)Ordered By: Vick Payne on 12-12-2021 CO2 [Moles/Vol] 26.6 mmol/L 22.0-30.0 [facility] Serum or plasma total choles terol/high density lipoprotein (HDL) cholesterol mass ratOrdered By: Vick Payne on 12-12-2021 Cholesterol.total/Chol esterol in HDL [Mass ratio] 3.3 {ratio} <5.0 [facility] Serum or plasma urea nitroge n measurement (mass/volume)Ordered By: Vick Payne on 12-12-2021 Urea nitrogen [Mass/Vol] 16 mg/dL 9-23 [facility] TSH DL <= 0.005 mIU/L QnOrde red By: Vick Payne on 12-12-2021 TSH Qn 0.65 m[IU]/L 0.45-5.33 [facility] Testosterone [Mass/volume] i n Serum or PlasmaOrdered By: Vick Payne on 12-12-2021 Testosterone [Mass/Vol] 0.32 ng/mL 0.00-0.75 [facility] Thyroxine (T4) free [Mass/vo lume] in Serum or PlasmaOrdered By: Vick Payne on 12-12-2021 Free T4 [Mass/Vol] 0.85 ng/dL 0.61-1.[address] [facility] Total estrogen measurementOr dered By: Vick Payne on 12-12-2021 Estrogen [Mass/Vol] 32 pg/mL 40-244 [facility] Comment on above: Prepubertal < 40 Fem melanie Cycle: 1-10 Days 16 - 328 11-20 Days 34 - 501 21-30 Days 48 - 350 Post-Menopausal 40 - 244Performed at: - [facility] [id number] [place], [place] [id number] Director: Martina Ross MD, Phone: [phone] Triglyceride [Mass/volume] i n Serum or PlasmaOrdered By: Vick Payne on 12-12-2021 Triglyceride [Mass/Vol] 44 mg/dL 35-149 [facility] Comment on above: TRIG ATP III CLASSIF ICATIONTRIG less than 150 mg/dL NormalTRIG 150-199 mg/dL Borderline highTRIG 200-500 mg/dL High TRIG greater than 500 mg/dL Very highStandard traceable to the Center for Disease Conrtrol and Prevention (CDC) test method. Radiologyon 09-14-2021 XR Wrist - bilateral 3 Views [facility] [place] Work Phone: Radiologyon 08-28-2021 XR Knee 4 Views Please click on the link to view the study images Normal [facility] [place] Work Phone: XR Knee 4 Views Normal [facility] [place] Work Phone: XR Wrist - bilateral 3 Views Please click on the link to view the study images Normal [facility] [place] Work Phone: XR Wrist - bilateral 3 Views Normal [facility] [place] Work Phone: CNOVon 08-12-2021 CNOV Office Visit (URFHR) ----- CLARISSA PARIS ([id number]) 1965 F Date Time Provider Department 08/12/21 1:00 PM TAQUERIA COTO During your visit today, we recorded the following information about you: Temperature Pulse Blood pressure 98.3 degrees 84/minute 139/75 Taqueria Coto MD 08/12/2021 1:37 PM Signed [id number] female initially evaluated for microscopic hematuria. She is a current smoker and we decided to evaluate with a CT urogram and cystoscopy. CT urogram 07/21/2021 1. ?No evidence of urinary tract calculus or hydroureteronephrosis. 2. ?No evidence of suspicious urinary tract mass. ?Multiple rounded hypodensities in the left kidney, likely representing cysts. 3. ?Stable subcentimeter hypodensity in the right hepatic lobe, likely representing a cyst or hemangioma. .'s HOPS NOTE/ UNIVERSAL PROTOCOL/ SAFETY CHECKLIST Sign In History and Physical Exam reviewed and is unchanged. Primary Diagnosis: Microscopic hematuria Sign in Communication: Completed. Time Out: Immediately prior to procedure, Team confirms the correct patient, correct procedure, cystoscopy, correct site and site marking, correct position (if applicable). Sign Out: Sign out discussion: Completed. Antibiotic(s) given immediately prior to procedure: Bactrim Details of procedure: as below Cystoscopy - Normal Urethra - Normal VN: open Urothelium: Normal, no evidence of tumor stone, CIS, foreign body, diverticuli, etc. Trabeculation: none Inflammation: mild Ureteral Orifices: Normal, clear efflux bilaterally Trigone: Normal Preoperative diagnosis: Microscopic hematuria Postoperative diagnosis: Same Procedure: Office cystoscopy Surgeon: Dr. Taqueria Coto Sterile technique maintained throughout Cystoscope: Flexible Procedure: The patient was taken to the cystoscopy suite and placed in the dorsal lithotomy position. She was then prepped and draped in the usual manner. Lidocaine gel was placed per urethra for local anasthesia. Cystoscopy was then performed using a Flexible Storz cystoscope. Sterile technique was maintained throughout. Please refer to above for specific findings during this part of the procedure. After carefully and atraumatically inspecting the urethra, VN, bladder, and UO's, the bladder was emptied and the cystoscope was removed. The patient tolerated the procedure well and there were no complications. She was take for recovery in good condition. Anesthesia: Lidojet Findings: see above Complications: None EBL: None Disposition: Cystoscopy GRACIELA. Reassured the patient of the microscopic hematuria as not from a serious cause. Recommended continued care with her primary care physician and to come back and see me if she develops gross hematuria or new urinary symptoms. Ducted to monitor her kidney function and blood pressure. MD Sangita Collins RN 08/12/2021 1:23 PM Signed [facility] - DEPARTMENT OF UROLOGY AFTER YOUR CYSTOSCOPY Taqueria Coto MD Cysto post procedure instructions You have undergone a cystoscopy. Your doctor has inserted a telescope into your urinary bladder through your urethra to view the inside of your bladder. WHAT TO EXPECT: Possible burning during urination and/or blood-tinged urine. WHAT TO DO: Resume normal activity and medications. Drink 6-8 glasses of fluid each day for 3 days to help flush your urinary system. If a Biopsy was done, avoid Aspirin for 3 days. MEDICATIONS: You were given a preventative antibiotic, prior to the procedure. WHEN TO CALL THE DOCTOR: IF you have a fever over 100 degrees Fahrenheit. IF you are unable to urinate. IF blood clots form in your urine. IF your urine becomes very bloody and does not clear with drinking extra fluids. Referring Provider: SELF [200] Allergies As of Date: 08/12/2021 Noted Allergy Reaction WELLBUTRIN (BUPROPION) 07/03/2021 2 - Rash Date Reviewed: 08/12/2021 Reviewed by: Sangita Mensah RN - Fully Assessed Reason for Visit: Established Patient [175] Primary Visit Diagnosis:Hematuria, microscopic [R31.29] Order(s):[] lidocaine urojet 2 % 11 mL topical gel (XYLOCAINE, GLYDO)Disp: Rfl: [] sulfamethoxazole-trimetho prim 800-160 mg 1 tablet (BACTRIM DS,SEPTRA DS)Disp: Rfl: UA DIP, URINE (POC) [[id number]] Order #: [id number]. #:[id number] [id number] Prescriptions as of 08/12/2021 - LORazepam (ATIVAN) 2 mg tab Take 5 mg by mouth as needed. Problem List As Of Date: 08/12/2021 (None) Visit Notes: >> Sangita Mensah RN TueAug 12, 2021 1:21 PM Status: Signed [facility] - DEPARTMENT OF UROLOGY AFTER YOUR CYSTOSCOPY Taqueria Coto MD Cysto post procedure instructions You have undergone a cystoscopy. Your doctor has inserted a telescope into your urinary bladder through your urethra to view the inside of your bladd (more content not included)... Normal [facility] UA DIP, URINE (POC)on 2021 BILIRUBIN UA (POCT) Negative Negative [facility] CLARITY UA (POCT) Cloudy [facility] COLOR UA (POCT) Maria Esther [facility] GLUCOSE UA (POCT) Negative Negative mg/dL [facility] HEMOGLOBIN/BLOOD UA (POCT) Large Abnormal Negative [facility] KETONE UA (POCT) 15 mg/dL Abnormal Negative mg/dL [facility] LEUKOCYTES UA (POCT) Negative Negative [facility] NITRITE UA (POCT) Negative Negative [facility] PH UA (POCT) 5.5 4.5 - 8.0 [facility] Protein Ql (U) Negative Negative mg/dL [facility] SPECIFIC GRAVITY UA (POCT) >=1.030 1.005 - 1.030 [facility] UROBILINOGEN UA (POCT) 0.2 E.U./dL Ewa l E.U./dL [facility] Radiologyon 08-11-2021 XR Knee 4 Views [facility] Work Phone: XR Wrist - bilateral 3 Views Normal -[facility] Work Phone: No Panel Informationon 07-21 [facility] CNOVon 07-03-2021 CNOV Office Visit (URFMOB ) ----- CLARISSA PARIS ([id number]) 1965 F Date Time Provider Department 07/03/21 2:20 PM TAQUERIA COTO During your visit today, we recorded the following information about you: Pulse Blood pressure 73/minute 139/67 Elizabeth E Dwain, RN 07/03/2021 2:05 PM Signed Post Void Residual done on patient with 10ml residual volume remaining. notified. GALILEA Juares MD 07/03/2021 2:39 PM Signed [facility]OLOGICAL COREA NEW PATIENT HISTORY AND PHYSICAL EXAM PATIENT INFO: Clarissa Paris 55 year old REFERRING M.D.: No referring provider defined for this encounter. CHIEF COMPLAINT: Hematuria HISTORY:Clarissa Paris is a 55 year old female who presents for evaluation of hematuria. UA 09/10/2020- demonstrated 3-4 RBC PMHx- tobacco use, joint pain, microhematuria Patient reports feeling okay overall. She endorses having microhematuria for at least one year. She had 1 occurrence of gross hematuria during a UTI. She is a current smoker. HPI: (determine 4 of 8) 1-Duration: 2020 2-Location: Kidney, Bladder 3-Severity: moderate 4-Context: screening PAST MEDICAL HISTORY: No past medical history on file. PAST SURGICAL HISTORY: No past surgical history on file. No results found for: CREAT REVIEW OF SYSTEMS: General: Negative for malaise, significant weight loss or fever + fatigue + night sweats Head AND Neck: No blurred vision, cataracts or hearing loss Respiratory: + cough and shortness of breath Cardiovascular: Negative for chest pain or VA GI: Negative for abdominal discomfort or fecal incontinence Endocrine: No thyroid problems or diabetes mellitus Neuro: + numbness, + tingling or tremors Musculoskeletal: + joint pain or swelling, or + back pain PHYSICAL EXAM: Constitutional: Well-nourished, No physical deformities. Normally developed. Good grooming. Neck: Neck symmetrical, not swollen, Normal tracheal position. Eyes: Normal conjunctivae, normal eyelids. Ears, Nose, Mouth, and Throat: Left ear no scars, no lesions, no masses. Right ear no scars, no lesions, no masses. Nose no scars, no lesions, no jorge. Normal hearing. Normal lips. Respiratory: No labored breathing, no use of accessory muscles. Cardiovascular: Normal temperature, normal extremity pulses, no swelling, no varicosities. Skin: No paleness, no jaundice, no cyanosis. No lesion, no ulcer, no rash Lymphatic: No enlargement of neck, axillae, groin. Neurologic/Psychiatric: Oriented to time, oriented to place, oriented to person. No depression, no anxiety, no agitation. Musculosckeletal: Normal gait and station of head and neck Abdomen: Normal abdominal exam, Abdomen soft, non-tender. Bowel sounds normal. No masses, organomegaly Urinalysis: I ordered a urinalysis, results are: see laboratory report Impression: Clarissa Paris is a 55 year old female, current smoker, presenting for evaluation of microscopic hematuria. Due to smoking hx, I advised her that it is recommended she get a CT Urogram, cystoscopy, and send urine for cytology today. The patient had a chance to have all questions answered and agreed to this plan. Plan: CTU Cystoscopy Cytology Scribe Attestation: By signing my name below, Tori Desai, attest that this documentation has been prepared under the direction and in the presence of Dr. Taqueria Coto MD. Electronically Signed:arsen Yarbrough, July 03, 2021 2:33 PM Provider Attestation: Taqueria Desai MD, personally performed the services described in this documentation. All medical record entries made by the scribe were at my direction and in my presence. I have reviewed the chart and discharge instructions (if applicable) and agree that the record reflects my personal performance and is accurate and complete. Dr. Taqueria Coto MD July 03, 2021 2:39 PM Taqueria Coto MD Referring Provider: SELF [200] Allergies As of Date: 07/03/2021 Noted Allergy Reaction WELLBUTRIN (BUPROPION) 07/03/2021 2 - Rash Date Reviewed: 07/03/2021 Reviewed by: Elizabeth Prakash RN - Fully Assessed Reason for Visit: Consult [173] Visit Diagnosis:Hematuria, microscopic [R31.29] Order(s):CT UROGRAM WO/W IVCON [[id number]] Order #: [id number] FUTURE iv contrast (will be provided with radiology test)CT Urogram WO/W Inject, intravenously, once for 1 dose.No IV access, insert saline lock prior to the beginning of sedation, infusion, injection of imaging exam. Discontinue saline lock post exam. If Pt. has a central line or IVAD, may access for administration according to line specific nursing protocol. Once exam is complete flush line and de-access according to line specific nursing protocol in the CT contrast administration guidelines link.Disp: 1 EachRfl: 0 0.9 % sodium chloride (NACL 0.9%) infusionInj (more content not included)... Normal [facility] CYTOLOGY NON-GYNon 2 CASE REPORT [facility] Comment on above: Order Comment: Speci men Type: FLUID SAMPLE Ordering Facility: [facility] Address: [address] [place] [address] Result Comment: [facility] Cytology Report Case: [id number] Authorizing Provider: Taqueria Coto MD Collected: 07/03/2021 03:12 PM Ordering Location: Urology Received: 07/06/2021 06:48 AM Pathologist: Gerardo Howard MD Specimen: URINE VOIDED Performed By: #### C YTONON #### [facility] CLIA [id number] [address] [place] [address] CLINICAL HISTORY microhematuria Normal [facility] Comment on above: Order Comment: Speci men Type: FLUID SAMPLE Ordering Facility: [facility] Address: [address] [place] [address] Performed By: #### C YTONON #### [facility] CLIA [id number] [address] [place] [address] FINAL DIAGNOSIS [facility] Comment on above: Order Comment: Speci men Type: FLUID SAMPLE Ordering Facility: [facility] Address: [address] [place] [address] Result Comment: A - URINE VOIDED Negative for high-grade urothelial carcinoma. Blood. Performed By: #### C YTONON #### [facility] CLIA [id number] [address] [place] [address] FINAL PERFORMING LAB [facility] Comment on above: Order Comment: Speci men Type: FLUID SAMPLE Ordering Facility: [facility] Address: [address], [place] [address] Result Comment: Tech nical component, air conditioning engineer screening performed at [facility], [id number] [place] [address] CLIA# [id number] Diagnostic interpretation performed at [facility], [address] [place] [address] CLIA# [id number] Technical Implementation Lead: Gerardo Howard M.D. Performed By: #### C YTONON #### [facility] CLIA [id number] [address] [place] [address] [place] GROSS DESCRIPTION Normal [facility] Comment on above: Order Comment: Speci men Type: FLUID SAMPLE Ordering Facility: [facility] Address: [address] [place] [address] Result Comment: A. U RINE VOIDED. 10 cc hazy yellow fluid. ThinPrep prepared. Performed By: #### C YTONON #### [facility] CLIA [id number] [address] [place] [address] [place] UA DIP, URINE (POC)on 2021 BILIRUBIN UA (POCT) Negative Negative [facility] CLARITY UA (POCT) Clear [facility] COLOR UA (POCT) Yellow [facility] GLUCOSE UA (POCT) Negative Negative mg/dL [facility] HEMOGLOBIN/BLOOD UA (POCT) Moderate Abnormal Negative [facility] KETONE UA (POCT) Negative Negative mg/dL [facility] LEUKOCYTES UA (POCT) Negative Negative [facility] NITRITE UA (POCT) Negative Negative [facility] PH UA (POCT) 6.0 4.5 - 8.0 [facility] Protein Ql (U) Negative Negative mg/dL [facility] SPECIFIC GRAVITY UA (POCT) >=1.030 1.005 - 1.030 [facility] UROBILINOGEN UA (POCT) 0.2 E.U./dL Ewa l E.U./dL [facility] Radiologyon 09-22-2020 XR Knee 1 or 2 Views Normal [facility] Work Phone: Otheron 06-02-2020 XR Knee 4 views Interpreted by: DELILAH RIVERA06/02/20 18:26MRN: [id number] Name: CLARISSA PARIS STUDY:KNEE; COMPLT, 4 OR MORE VIEWS; Right; 06/02/2020 1:25 pm INDICATION:Pain. ORDERING CLINICIAN:ALPHONSO RIVERA FINDINGS:Right knee x-rays four views AP, lateral, tunnel and sunrise view: Noacute fractures, no dislocation. Mild degenerative changes. Electronically signed by: ALPHONSO RIVERA 06/02/20 18:26 Normal [facility] Work Phone: Coding Summary.on 09-21-2019 Coding Summary. CODING DATE: 020 [facility] STATUS: Home (Routine DC) PAYOR: [place] ADMIT DX: REASON FOR VISIT DX: R07.9 Chest pain, unspecified FINAL DX: PRINCIPAL: R07.9 Chest pain, unspecified SECONDARY: Z20.828 Contact with and (suspected) exposure to other viral communicable diseases PYMT PROC APC STAT DESCRIPTION DOCTOR NAME DATE NOTE: The code number assigned matches the documented diagnosis and / or procedure in the patient's chart. However, the narrative phrase printed from the coding software may appear abbreviated, or result in slightly different terminology. Coded By: Tanesha White Date Saved: 09/21/2019 07:42 pm Normal [facility] Physician Orderon 09-12-2019 Physician Order [id number] Normal [facility] Otheron 03-09-2018 Staci Osorio 03/09/2018 3:03 PM 03/09/2018 EMG/NCV BUE study performed on today's date. Full report to be scanned as soon as possible. Preliminary findings are a normal study. Invalid Interpretation Code [facility] Work Phone: Vital Signs Date Time Vital Sign Value Performing Clinician Facility 12-27-2023 08:42-0400 Body height 167.6 cm Jay Hassan MD Work Phone: [facility] 12-27-2023 08:42-0400 Body mass index (BMI) [Ratio] 25.62 kg/m2 Jay Hassan MD Work Phone: [facility] 12-27-2023 08:42-0400 Body weight 72 kg Jay Hassan MD Work Phone: [facility] 12-27-2023 08:42-0400 Diastolic blood pressure 62 mm[Hg] Jay Hassan MD Work Phone: [facility] 12-27-2023 08:42-0400 Heart rate 78 /min Jay Hassan MD Work Phone: [facility] 12-27-2023 08:42-0400 Systolic blood pressure 100 mm[Hg] Jay Hassan MD Work Phone: [facility] 12-08-2023 22:00-0400 Diastolic blood pressure 58 mm[Hg] DO Vick Landisburg Work Phone: [facility] 12-08-2023 22:00-0400 Heart rate 92 /min DO Upson Landisburg Work Phone: [facility] 12-08-2023 22:00-0400 Respiratory rate 18 /min DO Upson Landisburg Work Phone: [facility] 12-08-2023 22:00-0400 SaO2% (BldA) [Mass fraction] 100 % DO Vick Landisburg Work Phone: [facility] 12-08-2023 22:00-0400 Systolic blood pressure 111 mm[Hg] DO Upson Landisburg Work Phone: [facility] 12-08-2023 19:09-0400 Body height 167.64 cm DO Upson Landisburg Work Phone: [facility] 12-08-2023 19:09-0400 Body temperature 97.9 [degF] DO Upson Landisburg Work Phone: [facility] 12-08-2023 19:09-0400 Body weight 71.35 kg DO Ratliff Elmer Work Phone: [facility] 12-08-2023 11:28-0400 Body mass index (BMI) [Ratio] 26.95 kg/m2 Rickey Valera MD Work Phone: [facility] 12-08-2023 11:28-0400 Body weight 71.22 kg Rickey Valera MD Work Phone: [facility] 12-08-2023 11:28-0400 Diastolic blood pressure 68 mm[Hg] Rickey Valera MD Work Phone: [facility] 12-08-2023 11:28-0400 Systolic blood pressure 110 mm[Hg] Rickey Valera MD Work Phone: [facility] 11-16-2023 09:28-0400 Body mass index (BMI) [Ratio] 25.23 kg/m2 Rickey Valera MD Work Phone: [facility] 11-16-2023 09:28-0400 Body weight 66.68 kg Rickey Valera MD Work Phone: [facility] 11-16-2023 09:28-0400 Diastolic blood pressure 64 mm[Hg] Rickey Valera MD Work Phone: [facility] 11-16-2023 09:28-0400 Systolic blood pressure 118 mm[Hg] Rickey Valera MD Work Phone: [facility] 11-29-2022 10:00-0400 Body height 162.56 cm Herber Guido Other [employer] Other 11-29-2022 10:00-0400 Body mass index (BMI) [Ratio] 23.69 kg/m2 Herber Lata Other [employer] Other 11-29-2022 10:00-0400 Body temperature 98.4 [degF] Herber Lata Other [employer] Other 11-29-2022 10:00-0400 Body weight 62.6 kg Herber Guido Other [employer] Other 11-29-2022 10:00-0400 Diastolic blood pressure 84 mm[Hg] Herber Guido Other [employer] Other 11-29-2022 10:00-0400 Respiratory rate 20 /min Herber Guido Other [employer] Other 11-29-2022 10:00-0400 SaO2% (BldA) [Mass fraction] 94 % Herber Guido Other [employer] Other 11-29-2022 10:00-0400 Systolic blood pressure 130 mm[Hg] Herber Guido Other [employer] Other 09-15-2022 15:25-0400 Body temperature 98.49 [degF] Jose Bejarano APRN.TIP PRINTER Work Phone: [facility] 09-15-2022 15:25-0400 Body weight 64.86 kg Jose Bejarano APRN.TIP PRINTER Work Phone: [facility] 09-15-2022 15:25-0400 Diastolic blood pressure 86 mm[Hg] Jose Bejarano APRN.TIP PRINTER Work Phone: [facility] 09-15-2022 15:25-0400 Heart rate 81 /min Jose Bejarano APRN.TIP PRINTER Work Phone: [facility] 09-15-2022 15:25-0400 Respiratory rate 18 /min Jose Bejarano APRN.TIP PRINTER Work Phone: [facility] 09-15-2022 15:25-0400 SaO2% (BldA) [Mass fraction] 98 % Jose Bejarano APRN.TIP PRINTER Work Phone: [facility] 09-15-2022 15:25-0400 Systolic blood pressure 135 mm[Hg] Jose Bejarano APRN.TIP PRINTER Work Phone: [facility] 03-24-2022 16:40-0500 Body height 162.56 cm Ethan Shaw Other [employer] Other 03-24-2022 16:40-0500 Body mass index (BMI) [Ratio] 24.89 kg/m2 Ethan Shaw Other [employer] Other 03-24-2022 16:40-0500 Body temperature 98 [degF] Ethan Shaw Other [employer] Other 03-24-2022 16:40-0500 Body weight 65.77 kg Ethan Shaw Other [employer] Other 03-24-2022 16:40-0500 Respiratory rate 18 /min Ethan Shaw Other [employer] Other 03-24-2022 16:40-0500 SaO2% (BldA) [Mass fraction] 94 % Ethan Shaw Other [employer] Other 08-12-2021 13:13-0400 Body temperature 98.29 [degF] Taqueria Coto MD Work Phone: [facility] 08-12-2021 13:13-0400 Diastolic blood pressure 75 mm[Hg] Taqueria Coto MD Work Phone: [facility] 08-12-2021 13:13-0400 Heart rate 84 /min Taqueria Coto MD Work Phone: [facility] 08-12-2021 13:13-0400 Systolic blood pressure 139 mm[Hg] Taqueria Coto MD Work Phone: [facility] 07-03-2021 14:08-0400 Diastolic blood pressure 67 mm[Hg] Taqueria Coto MD Work Phone: [facility] 07-03-2021 14:08-0400 Heart rate 73 /min Taqueria Coto MD Work Phone: [facility] 07-03-2021 14:08-0400 Systolic blood pressure 139 mm[Hg] Taqueria Coto MD Work Phone: [facility] Encounters Encounter Date Encounter Type Care Provider Facility Start: 01-03-2024 End: 01-03-2024 ambulatory JAY HASSAN Facility:[facility] Start: 01-02-2024 ambulatory JAY GORDILLO Facility:[facility] Start: 01-02-2024 End: 01-02-2024 Subsequent hospital visit by physician [facility] Work Phone: [facility] Radiology Ultrasound Comment on above: Torin thyroiditi s [E06.3] Start: 12-28-2023 End: 12-28-2023 Telephone encounter Jay Hassan MD Work Phone: Endocrinology Comment on above: Appointment Start: 12-27-2023 End: 12-27-2023 ambulatory JAY HASSAN Facility:[facility] Start: 12-27-2023 End: 12-27-2023 Office consultation new/estab patient 60 min Jay Hassan MD Work Phone: Endocrinology Comment on above: Hyperthyroidism (Haily nirav Dx); Torin thyroiditis Start: 12-19-2023 End: 12-19-2023 Patient encounter procedure DO Vick Payne Work Phone: [facility] Work Phone: Start: 12-19-2023 End: 12-19-2023 ambulatory DO Vick Payne Work Phone: [facility] Work Phone: Start: 12-08-2023 End: 12-08-2023 Emergency department patient visit DO Vick Payne Work Phone: [facility]Emergency [facility] Work Phone: Start: 12-08-2023 End: 12-08-2023 Office outpatient visit 10 minutes Rickey Valera MD Work Phone: [facility] Comment on above: Mood swings; Hair loss; Abdominal bloating; Family history of breast cancer; Rash Start: 12-08-2023 End: 12-08-2023 ambulatory RICKEY VALERA Not Available Start: 12-07-2023 End: 12-07-2023 ambulatory [facility] Start: 12-07-2023 End: 12-07-2023 Office outpatient visit 15 minutes Taqueria Gilliam MD Work Phone: [facility] Comment on above: Primary osteoarthrit is of right knee (Primary Dx) Start: 12-05-2023 End: 12-05-2023 Subsequent hospital visit by physician Elizabeth Lo Mri 1 [facility] Medical Office Building Comment on above: Right knee pain, uns pecified chronicity; Tear of medial meniscus of right knee, current, unspecified tear type, initial encounter Start: 12-05-2023 End: 12-05-2023 ambulatory [facility] Start: 11-22-2023 End: 11-22-2023 ambulatory NOAM MURGUIA Not Available Start: 11-16-2023 End: 11-16-[address] [facility] Ambulatory Start: 11-16-2023 End: 11-16-2023 Patient encounter status Rickey Valera MD Work Phone: [facility] [employer] Work Phone: Start: 11-16-2023 End: 11-16-2023 Periodic preventive med est patient 40-64yrs Rickey Valera MD Work Phone: [facility] Comment on above: Encounter for gyneco logical examination without abnormal finding (Primary Dx); Mood swings; Hair loss; Encounter for screening mammogram for malignant neoplasm of breast; Screening for malignant neoplasm of cervix; Abdominal bloating Start: 11-16-2023 End: 11-16-2023 ambulatory RICKEY Ayala VALERA Not Available Start: 10-13-2023 End: 10-13-2023 Patient encounter procedure DO Vick Payne Work Phone: [facility] Start: 10-13-2023 End: 10-13-2023 ambulatory DO Vick Payne Work Phone: [facility] Work Phone: Start: 07-26-2023 End: 07-26-2023 Office outpatient visit 15 minutes Taqueria Rojas MD Work Phone: [facility] Comment on above: Back pain with radic ulopathy (Primary Dx) Start: 07-26-2023 End: 07-26-2023 ambulatory [facility] Start: 07-22-2023 End: 07-22-2023 Subsequent hospital visit by physician Elizabeth Lo Mri 1 [facility] Medical Office Building Comment on above: Low back pain with s ciatica, sciatica laterality unspecified, unspecified back pain laterality, unspecified chronicity; Lumbar degenerative disc disease; Lumbar radiculitis Start: 07-22-2023 End: 07-22-2023 ambulatory [facility] Start: 07-21-2023 End: 07-21-2023 ambulatory [place] [facility] Start: 07-21-2023 End: 07-21-2023 Office outpatient visit 15 minutes Taqueria Gilliam MD Work Phone: [facility] Comment on above: Primary osteoarthrit is of right knee (Primary Dx) Start: 07-11-2023 End: 07-11-2023 ambulatory Vick Payne Facility:[facility] Start: 07-05-2023 End: 07-05-2023 Office outpatient visit 25 minutes Taqueria Rojas MD Work Phone: [facility] Comment on above: Low back pain with s ciatica, sciatica laterality unspecified, unspecified back pain laterality, unspecified chronicity (Primary Dx); Lumbar degenerative disc disease; Lumbar radiculitis Start: 07-05-2023 End: 07-05-2023 Subsequent hospital visit by physician Elizabeth [facility] X-Ray 3 [facility] Comment on above: Low back pain with s ciatica, sciatica laterality unspecified, unspecified back pain laterality, unspecified chronicity Start: 07-05-2023 End: 07-05-2023 ambulatory [place] [facility] Start: 05-16-2023 End: 05-16-2023 Patient encounter procedure DO Vick Payne Work Phone: [facility] [place] Work Phone: Start: 05-16-2023 End: 05-16-2023 ambulatory DO Vick Payne Work Phone: [facility] Work Phone: Start: 03-24-2023 End: 03-24-2023 Office outpatient visit 15 minutes Taqueria Gilliam MD Work Phone: [facility] Comment on above: Primary osteoarthrit is of right knee (Primary Dx) Start: 03-24-2023 End: 03-24-2023 ambulatory [facility] Start: 01-06-2023 End: 01-06-2023 Postop follow up visit related to original px Taqueria Gilliam MD Work Phone: [facility] Comment on above: Primary osteoarthrit is of right knee Start: 01-06-2023 End: 01-06-2023 ambulatory [facility] Start: 12-17-2022 End: 12-17-2022 ambulatory DO Vick Payne Work Phone: [facility] Work Phone: Start: 12-17-2022 End: 12-17-2022 Patient encounter procedure DO Vick Payne Work Phone: [facility] Work Phone: Start: 11-29-2022 Office outpatient vi sit 25 minutes Herber Myton [facility] [address] Start: 11-29-2022 End: 11-29-2022 ambulatory DO Vick Elmer Work Phone: [facility] Work Phone: Start: 11-29-2022 End: 11-29-2022 Patient encounter procedure DO Upsonhuy Payne Work Phone: [facility] 250 Start: 11-04-[address] Vick Payne Facility:[id number] Start: 11-04-2022 Patient encounter procedure Vick Payne Work Phone: [facility] Work Phone: Start: 09-15-2022 End: 09-15-2022 Patient encounter procedure Jose Bejarano ETHNOARCHAEOLOGY PROFESSOR.TIP PRINTER Work Phone: [facility] Comment on above: Chronic neck pain (P rimary Dx); Sore throat; Headache, unspecified headache type; Wheezing Start: 08-02-2022 Patient encounter procedure Vick Payne Work Phone: [facility] Work Phone: Start: 08-02-[address] Vick Payne Facility:[id number] Start: 04-28-2022 SIMI, Provider: Taqueria Gilliam, Status: Pen, Time: 10:15 AM Vick Payne Work Phone: [facility] [place] Work Phone: Start: 04-28-2022 Patient encounter procedure Vick Payne Work Phone: [facility] Work Phone: Start: 04-28-[address] Taqueria Gilliam Facility:[id number] Start: 04-27-2022 AUDIT Vick Vazquez Maile lentz Work Phone: [facility] [place] Work Phone: Start: 03-24-2022 End: 03-24-2022 ambulatory Ethan Shaw Other [facility] [employer] Other Start: 03-24-2022 Office outpatient vi sit 15 minutes Ethan Shaw [facility] Start: 12-24-2021 End: 12-25-2021 ambulatory [facility] Facility: Start: 12-24-2021 End: 12-24-2021 ambulatory DO Vick Payne Work Phone: [facility] Work Phone: Start: 12-24-2021 End: 12-24-2021 Patient encounter procedure DO Vick Payne Work Phone: [facility] Start: 12-16-2021 End: 12-16-2021 ambulatory DO Vick Payne Work Phone: [facility] Work Phone: Start: 12-16-2021 End: 12-16-2021 Patient encounter procedure DO Vick Payne Work Phone: [facility] Start: 12-12-2021 End: 12-12-2021 ambulatory DO Vick Payne Work Phone: [facility] Work Phone: Start: 12-12-2021 End: 12-12-2021 Patient encounter procedure DO Vick Payne Work Phone: [facility] [place] Start: 09-16-2021 CRISTIAN, Provider : Helio Guerrero, Status: Pen, Time: 2:30 PM Vick Payne Work Phone: [facility] [place] Work Phone: Start: 09-16-2021 Chart Update Vick Gr ol Work Phone: [facility] Work Phone: Start: 09-14-2021 Patient encounter procedure Vick Payne Work Phone: [facility] Work Phone: Start: 08-28-2021 Patient encounter procedure Vick Payne Work Phone: [facility] Work Phone: Start: 08-12-2021 Chart Update Vick Gr ol Work Phone: [facility] Work Phone: Start: 08-12-2021 End: 08-12-2021 Patient encounter procedure Taqueria Coto MD Work Phone: Urology Comment on above: Hematuria, microscop ic (Primary Dx) Start: 08-11-2021 Patient encounter procedure Vick Payne Work Phone: [facility] Work Phone: Start: 07-21-2021 End: 07-21-2021 Subsequent hospital visit by physician [facility] Maria Victoria Work Phone: Radiology Comment on above: Hematuria, microscop ic [R31.29] Start: 07-03-2021 End: 07-03-2021 Patient encounter procedure Taqueria Coto MD Work Phone: Urology Comment on above: Hematuria, microscop ic Start: 09-22-2020 Patient encounter procedure Vick Payne Work Phone: [facility] Work Phone: Start: 09-19-2020 AUDIT Vick Gr ol Work Phone: [facility] Work Phone: Start: 06-02-2020 Patient encounter procedure ORTCFOWALK ORTHO PAPER WRAPPING MACHINE OPERATOR WALK IN CLINIC [facility] Work Phone: Start: 07-18-2019 Patient encounter procedure Taqueria Gilliam [facility] Work Phone: Start: 06-21-2019 Patient encounter procedure Taqueria Patricio [facility] Work Phone: Start: 03-09-2018 Patient encounter procedure [facility] Start: 03-09-2018 End: 03-09-2018 Patient encounter procedure Carlos D [facility] Work Phone: [facility] [place] Start: 02-02-2018 Patient encounter procedure [facility] Procedures Date Procedure Procedure Detail Performing Clinician Start: 12-19-2023 Screening mammograph y of bilateral breasts DO Vick Payne Work Phone: Start: 12-08-2023 Plain chest X-ray DO Hafsa Payne Work Phone: Start: 12-05-2023 Mri any jt lower ext rem w/o contrast matrl Taqueria Gilliam MD Work Phone: Start: 11-16-2023 SENDOUT TEST MISCELL ANEOUS [facility] Rickey Valera MD Work Phone: Start: 07-22-2023 Mri spinal canal lum bar w/o contrast material Taqueria Rojas MD Work Phone: Start: 07-21-2023 Arthrocentesis aspir &/inj major jt/bursa w/o us Taqueria Gilliam MD Work Phone: Start: 07-05-2023 XR LUMBAR SPINE 4+ V IEWS WITH FLEXION EXTENSION TAQUERIA GILLIAM Start: 07-05-2023 Radex spine lumbosac ral only bending 2/3 views Taqueria Rojas MD Work Phone: Start: 03-24-2023 LARGE JOINT INJECTION/ARTHROCENTESIS TAQUERIA GILLIAM Start: 03-24-2023 Arthrocentesis aspir &/inj major jt/bursa w/o us Taqueria Gilliam MD Work Phone: Start: 12-17-2022 Screening mammograph y of bilateral breasts DO Vick Payne Work Phone: Start: 11-29-2022 Plain chest X-ray DO Hafsa Payne Work Phone: Start: 09-15-2022 STREP A MOLECULAR (POC) Jose Bejarano APRN.TIP PRINTER Work Phone: Start: 12-24-2021 Ultrasonography of r ight breast DO Vick Payne Work Phone: Start: 12-24-2021 Mammography of right breast DO Vick Payne Work Phone: Start: 12-16-2021 Screening mammograph y of bilateral breasts DO Vick Payne Work Phone: Start: 08-12-2021 Urnls dip stick/tabl et rgnt auto w/o microscopy Taqueria Coto MD Work Phone: Start: 07-21-2021 CT 3D POST PROCESSING R preston Coto MD Work Phone: Start: 07-21-2021 Ct abdomen & pelvis w/o contrst 1/> body re Taqueria Coto MD Work Phone: Start: 07-03-2021 Urnls dip stick/tabl et rgnt auto w/o microscopy Taqueria Coto MD Work Phone: Start: 06-02-2020 Mri any jt lower ext rem w/o contrast matrl ORTCFOWALK ORTHO PAPER WRAPPING MACHINE OPERATOR W[facility] IN CLINIC Start: 02-09-2019 Mammography Rickey chaney MD Work Phone: Start: 03-09-2018 End: 03-09-2018 Electromyography Carlos Beck Work Phone: Start: 03-09-2018 End: 03-09-2018 Motor nerve conduction studies Taqueria Lim Work Phone: Plan of Treatment Date Care Activity Detail Author Start: 11-15-2024 End: 02-14-2025 DBT Breast - bilateral screening Bilateral screening mammogram with tomosynthesis Imaging Routine Encounter for screening mammogram for malignant neoplasm of breast Expected: 11/15/2024, Expires: 02/14/2025 [facility] Work Phone: Comment on above: Expected: 11/15/2024, Expires: Start: 04-10-2024 End: 04-10-2024 Patient encounter procedure 04/10/2024 9:20 AM EST Office Visit Endocrinology [address] [place] [address] Jay Hassan MD [address] [facility] [address] [place], [place] [id number] Return in about 3 months (around 03/28/2024). Endocrinology Comment on above: Return in about 3 months (around 03/28/19). Start: 02-16-2024 End: 02-16-2024 Patient encounter procedure 02/16/2024 8:30 AM EST Office Visit [facility] [address] [place] [address] Noam Murguia PA [address] [place] [phone] [facility] Start: 01-17-2024 Screening for malignant neoplasm of cervix [facility] Healthcare Start: 01-11-2024 End: 01-11-2024 Patient encounter procedure 01/11/2024 8:30 AM EST Appointment [facility] Radiology Ultrasound [address] [place] [address] Us thyroid [facility] Radiology Ultrasound Comment on above: Us thyroid Start: 12-08-2023 End: 12-08-2023 Patient encounter procedure 12/08/2023 11:15 AM EDT Office Visit [facility] [address] [place] [phone] Rickey Valera MD [address] [place] [address] [facility] Start: 12-08-2023 End: 12-08-2023 Professional / ancillary services management 12/08/2023 10:30 AM EDT Ancillary Procedure [facility] [address] [place] [address] [facility] Start: 12-07-2023 End: 12-07-2023 Patient encounter procedure 12/07/2023 7:45 AM EDT Office Visit [facility] [address] [place] [phone] Taqueria Gilliam MD [address] [facility], [address] [place] [address], [place] [address] [facility] Start: 10-30-2023 COVID-19 Vaccine ( season) COVID-19 Vaccine ( season) [facility] Start: 10-30-2023 Covid-19 Vaccine ( season) Covid-19 Vaccine ( season) [facility] Start: 10-30-2023 Influenza vaccination [facility] Start: 10-13-2023 [facility] Start: 09-15-2023 End: 09-15-2023 Patient encounter procedure 09/15/2023 9:45 AM EDT Office Visit [facility] [address] [place] [phone] Taqueria Gilliam MD [address] [facility], [address] [place] [address], [place] [address] [facility] Start: 07-26-2023 End: 07-26-2023 Patient encounter procedure 07/26/2023 8:45 AM EDT Office Visit [facility] [address] [place] [address] Taqueria Rojas MD [address] [facility], [address] [place] [address], [place] [id number] [facility] Start: 07-22-2023 End: 07-22-2023 Patient encounter procedure 07/22/2023 8:00 AM EDT Appointment [facility] Medical Office Building [address] [place] [phone] [facility] Medical Office [facility] Start: 07-21-2023 End: 07-21-2023 Patient encounter procedure 07/21/2023 8:15 AM EDT Office Visit [facility] [address] [phone] Taqueria Gilliam MD [address] [facility], [address] [place] [phone] [facility] Start: 07-05-2023 End: 07-04-2024 MR Lumbar spine WO contrast MR lumbar spine wo IV contrast Imaging Routine Low back pain with sciatica, sciatica laterality unspecified, unspecified back pain laterality, unspecified chronicity Lumbar degenerative disc disease Lumbar radiculitis Expected: 07/05/2023 (Approximate), Expires: 07/04/2024 [facility] Service Area Work Phone: Comment on above: Expected: 07/05/2023 (Approximate), Expi res: 07/04/2024 Start: 11-04-2022 FUV, Provider: Taqueria Gilliam, Status: Pen, Time: 8:00 AM FUV, Provider: Taqueria Gilliam, Status: Pen, Time: 8:00 AM [facility] Work Phone: Start: 10-29-2022 Influenza vaccination [facility] Start: 05-20-2022 FUV, Provider: Taqueria Gilliam, Status: Pen, Time: 3:30 PM FUV, Provider: Taqueria Gilliam, Status: Pen, Time: 3:30 PM [facility] Work Phone: Start: 05-11-2022 NPV, Provider: Jurgen Roldan, Status: Pen, Time: 2:00 PM NPV, Provider: Jurgen Roldan, Status: Pen, Time: 2:00 PM -[facility] DO Work Phone: Start: 02-28-2022 DEPRESSION ASSESSMENT DEPRESSION ASSESSMENT [facility] Start: 10-29-2021 Influenza vaccination INFLUENZA (Season Ended) [facility] Start: 09-18-2021 FUV, Provider: Helio Guerrero, Status: Pen, Time: 10:30 AM FUV, Provider: Helio Geurrero, Status: Pen, Time: 10:30 AM -[facility] [place] Work Phone: Start: 09-02-2021 FUV, Provider: Helio Guerrero, Status: Pen, Time: 3:30 PM FUV, Provider: Helio Guerrero, Status: Pen, Time: 3:30 PM -[facility] [place] Work Phone: Start: 12-01-2020 COVID-19 VACCINE (3 - Booster for Pfizer series) COVID-19 VACCINE (3 - Booster for Pfizer series) [facility] Start: 10-02-2020 FUV, Provider: Hudson Kenney, Status: Pen, Time: 3:00 PM FUV, Provider: Hudson Kenney, Status: Pen, Time: 3:00 PM [facility] [place] Work Phone: Start: 09-22-2020 FUV, Provider: Taqueria Gilliam, Status: Pen, Time: 7:45 AM FUV, Provider: Taqueria Gilliam, Status: Pen, Time: 7:45 AM -[place] [facility] [place] Work Phone: Start: 08-26-2020 COVID-19 VACCINE (3 - Pfizer series) COVID-19 VACCINE (3 - Pfizer series) [facility] Start: 07-29-2020 COVID-19 Vaccine (3 - Pfizer risk series) COVID-19 Vaccine (3 - Pfizer risk series) [facility] Start: 02-10-2020 Screening for malignant neoplasm of breast [facility] Start: 10-29-2017 Influenza vaccination INFLUENZA VACCINE (#1) [facility] Work Phone: Start: 12-22-2015 Protein mass conc COLON CANCER SCREENING DISCUSSION [facility] Work Phone: Start: 12-22-2015 SHINGRIX VACCINE (1 of 2) SHINGRIX VACCINE (1 of 2) [facility] Start: 12-22-2015 Zoster Vaccines (1 of 2) Zoster Vaccines (1 of 2) [facility] Start: 2010 COLOGUARD (FIT-DNA) COLOGUARD (FIT-DNA) [facility] Start: 2010 Colonoscopy COLONOSCOPY [facility] Start: 2010 COLORECTAL CANCER SCREENING COLORECTAL CANCER SCREENING [facility] Start: [address] COLONOGRAPHY [facility] Start: 2010 DIABETES SCREEN DIABETES SCREEN [facility] Start: 2010 Diabetes Screening Diabetes Screening [facility] Start: 2010 FECAL OCCULT BLOOD FECAL OCCULT BLOOD [facility] Start: 2010 Lipid panel Lipid Screening [facility] Start: 2010 LIPID SCREEN LIPID SCREEN [facility] Start: 2010 Screening for malignant neoplasm of colon [facility] Start: 2010 SIGMOIDOSCOPY SIGMOIDOSCOPY [facility] Start: 2005 Fasting lipid profile LIPID SCREENING [facility] Work Phone: Start: 2005 Mammography MAMMOGRAM [facility] Start: 2005 Protein mass conc MAMMOGRAM SCREENING DISCUSSION [facility] Work Phone: Start: 2005 Screening for malignant neoplasm of breast Mammogram [facility] Start: 12-22-1995 HPV TESTING HPV TESTING [facility] Start: 12-22-1987 DTaP/Tdap/Td Vaccines (1 - Tdap) DTaP/Tdap/Td Vaccines (1 - Tdap) [facility] Start: 1986 PAP TESTING PAP TESTING [facility] Start: 1986 Screening for malignant neoplasm of cervix [facility] Start: 1984 Hepatitis B Vaccine (1 of 3 - 19+ 3-dose series) Hepatitis B Vaccine (1 of 3 - 19+ 3-dose series) [facility] Start: 1984 Hepatitis B Vaccines (1 of 3 - 19+ 3-dose series) Hepatitis B Vaccines (1 of 3 - 19+ 3-dose series) [facility] Start: 1984 Third diphtheria, tetanus and acellular pertussis (DTaP) vaccination TDAP (ADULT) [facility] Work Phone: Start: 1984 Urine microalbumin profile [facility] Start: 1984 Zoster Vaccines (1 of 2) Zoster Vaccines (1 of 2) [facility] Start: 12-22-1983 Anxiety Screening Anxiety Screening [facility] Start: 12-22-1983 Depression Screening Depression Screening [facility] Start: 12-22-1983 HEPATITIS C SCREENING HEPATITIS C SCREENING [facility] Start: 12-22-1983 Hepatitis C screening Hepatitis C Screening [facility] Start: 12-22-1983 HIV SCREENING HIV SCREENING [facility] Start: 12-22-1983 HIV screening HIV Screening [facility] Start: 12-22-1983 Tetanus vaccination TETANUS [facility] Work Phone: Start: 1978 HIV screening HIV SCREENING DISCUSSION [facility] Work Phone: Start: 1977 Adult depression screening assessment DEPRESSION SCREENING [facility] Start: 12-22-1971 PNEUMOCOCCAL (1 - PCV) PNEUMOCOCCAL (1 - PCV) [facility] Start: 12-22-1971 Pneumococcal vaccination Pneumococcal Vaccine (1 of 2 - PCV) [facility] Start: 12-22-1971 Pneumococcal Vaccine: Pediatrics (0 to 5 Years) and At-Risk Patients (6 to 64 Years) (1 - PCV) Pneumococcal Vaccine: Pediatrics (0 to 5 Years) and At-Risk Patients (6 to 64 Years) (1 - PCV) [facility] Start: 12-22-1971 Pneumococcal Vaccine: Pediatrics (0 to 5 Years) and At-Risk Patients (6 to 64 Years) (1 of 2 - PCV) Pneumococcal Vaccine: Pediatrics (0 to 5 Years) and At-Risk Patients (6 to 64 Years) (1 of 2 - PCV) [facility] Start: 1966 MMR Vaccines (1 of 1 - Standard series) MMR Vaccines (1 of 1 - Standard series) [facility] Start: 1965 HEPATITIS B (1 of 3 - 3-dose series) HEPATITIS B (1 of 3 - 3-dose series) [facility] Start: 1965 Hepatitis B Vaccines (1 of 3 - 3-dose series) Hepatitis B Vaccines (1 of 3 - 3-dose series) [facility] Start: 1965 HIV screening HIV Screening [facility] Start: 1965 Lipid panel Lipid Panel [facility] Start: 1965 Screening for malignant neoplasm of colon [facility] Start: 1965 Yearly Adult Physical Yearly Adult Physical [facility] End: 08-02-2022 Ct abdomen & pelvis w/o contrst 1/> body re CT UROGRAM WO/W IVCON Radiology Routine Hematuria, microscopic 1 Occurrences starting 07/03/2021 until 08/02/2022 [facility] Work Phone: Comment on above: 1 Occurrences starting 07/03/2021 until 08/02/2022 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 CYTOLOGY NON-GY N Lab Routine Hematuria, microscopic Ordered: 07/03/2021 [facility] Work Phone: Comment on above: Ordered: 07/03/2021 Estrogen [Mass/volum e] in Serum or Plasma [facility] Work Phone: Estrogen [Mass/volum e] in Serum or Plasma [facility] Homogenous nuclear A b pattern [Titer] in Serum [facility] Lutropin [Units/volu me] in Serum or Plasma [facility] Work Phone: Nuclear Ab [Titer] i n Serum [facility] Patient Education Chest Pain, Adult ED [facility] Work Phone: Patient referral [facility] Work Phone: Progesterone [Mass/volume] in Serum or Plasma [facility] Work Phone: Progesterone [Mass/volume] in Serum or Plasma [facility] Rheumatoid factor [Units/volume] in Serum or Plasma [facility] Thyroperoxidase Ab [Units/volume] in Serum or Plasma [facility] End: 01-25-2025 US Thyroid gland US THYROID/PARATHYROID Radiology Routine Torin thyroiditis 1 Occurrences starting 12/27/2023 until 01/25/2025 [facility] Work Phone: Comment on above: 1 Occurrences starting 12/27/2023 until 01/25/2025 US Thyroid gland US THYROID/PARA THYROID Radiology Routine Torin thyroiditis 01/02/2024 10:41 PM EST [facility] Work Phone: [facility] Immunizations Immunization Date Immunization Notes Care Provider Sara griggs 07-01-2020 COVID-19 mRNA, Comirnaty (Pfizer) DO Vick Payne Work Phone: [facility] 06-10-2020 COVID-19 mRNA, Comirnaty (Pfizer) DO Vick Payne Work Phone: [facility] Payers Date Payer Category Payer Self-pay [id number] 2017 Unknown 2017 Unknown [employer] C[employer] PPO OOS [id number] 2017-Present [phone] [address] [place] [address] PPO [id number] 1965 Unknown [id number] [id number] 93 1965 Unknown [id number] .[id number] 56 1965 Unknown [id number] 2.16.840.1.357416.3.579.2.1 068 1965 Unknown [id number] 2.16.840.1.633062.3.579.2.1 068 1965 Unknown [id number] 2.16.840.1.618917.3.579.2.1 244 1965 Unknown [id number] 2.16.840.1.438118.3.579.2.1 244 1965 Unknown [id number] 2.16.840.1.003155.3.579.2.1 259 1965 Unknown [id number] 2.16.840.1.416870.3.579.2.1 259 1965 Unknown [id number] 2.16.840.1.079997.3.579.2.1 259 1965 Unknown [id number] 2.16.840.1.635565.3.579.2.1 259 1965 Unknown [id number] 2.16.840.1.413851.3.579.2.1 246 1965 Unknown [id number] 2.16.840.1.593653.3.579.2.1 246 1965 Unknown [id number] 2.16.840.1.633936.3.579.2.1 246 1965 Unknown [id number] 2.16.840.1.982673.3.579.2.1 246 1965 Unknown [id number] 2.16.840.1.466535.3.579.2.1 246 1965 Unknown [id number] 2.16.840.1.340130.3.579.2.1 246 1965 Unknown [id number] 2.16.840.1.230794.3.579.2.1 246 1965 Unknown [id number] 2.16.840.1.513365.3.579.2.1 246 1965 Unknown [id number] 2.16.840.1.979015.3.579.2.1 246 1959 Unknown [id number] Unknown [id number] 2.16.840.1.133368.3.579.2.5 31 Unknown [id number] 2.16.840.1.403015.3.579.2.5 31 Unknown [id number] 2.16.840.1.999861.3.579.2.5 31 Unknown [id number] 2.16.840.1.426973.3.579.2.5 31 Unknown [id number] 2.16.840.1.546873.3.579.2.5 31 Worker's Compensation [id number] Social History Date Type Detail Facility Tobacco smoking status NHIS Unknown if ever smoked [facility] Work Phone: Start: 1965 Sex Assigned At Not on file O [facility] Work Phone: Tobacco smoking status IDIS Tobacco smoking consumption unknown [facility] Start: 06-23-2021 End: 12-07-2023 Exposure to SARS-CoV-2 (event) Not sure [facility] Start: 08-27-2021 Tobacco smoking status NHIS Smoker (finding) [facility] Start: 1965 Sex Assigned At Female F [facility] Start: 09-15-2022 End: 12-27-2023 Sex Assigned At [facility] [employer] Other Start: 09-15-2022 End: 11-16-2023 Tobacco smoking status NHIS Smokes tobacco daily [facility] History of tobacco use Cigarette Smoker [facility] History of tobacco use Passive smoker [facility] Start: 09-15-2022 End: 11-16-2023 Tobacco use and exposure Smokeless tobacco non-user [facility] Start: 09-15-2022 End: 12-27-2023 Alcohol intake Current drinker of alcohol (finding) [facility] Start: 09-15-2022 End: 12-27-2023 History of Social function [facility] National Score (1-100), lower number is lower risk 61 [facility] Start: 09-06-2022 Alcohol Comment socially [facility] Start: 12-08-2023 Tobacco smoking status NHIS Ex-smoker (finding) [facility] Functional Status Date Assessment Result Facility NEGATED: Highlighted row Functional performance Functional status health issues are not documented Disease [facility] [place] Work Phone: Mental Status Date Assessment Result Facility NEGATED: Highlighted row Cognitive function [Interpretation] Cognitive status health issues are not documented [facility] [place] Work Phone: Clinical Notes 07-03-2021 to 12-28-2023 Telephone Encounter - Sonia Dennis LPN - 12/28/2023 4:38 PM EDTTelephone Encounter - Sonia Dennis LPN - [facility]23 [facility] Luna MD - 12/27/2023 8:40 AM EDT Note Date & Type Note Facility 12-28-2023 Telephone encounter Note Note has been signed . Changerst message sent to patient. [facility] 12-28-2023 Miscellaneous Notes Note has been signed . Changerst message sent to patient. Clarissa is calling Jay Hassan MD today trying to review her visit from yesterday on my chart. The visit is unsigned. Looking to see if this can be completed so that she can review. Please advise. Patient has been identified by name and birthdate. Duration of symptoms: N/A Person calling: self Call patient at: at home [phone] (home) [phone] (cell) Was an appointment scheduled: No Closing statement: Results or non-symptom based questions: Thank you for calling [facility], your call will be returned within the next business day. Maddie Vigil documented in this encounter [facility] 12-28-2023 Telephone encounter Note Clarissa is calling Jay Hassan MD today trying to review her visit from yesterday on my chart. The visit is unsigned. Looking to see if this can be completed so that she can review. Please advise. Patient has been identified by name and birthdate. Duration of symptoms: N/A Person calling: self Call patient at: at home [phone] (home) [phone] (cell) Was an appointment scheduled: No Closing statement: Results or non-symptom based questions: Thank you for calling [facility], your call will be returned within the next business day. Maddie Vigil [facility] 12-27-2023 History of Present illness Narrative ENDOCRINOLOGY REASON FOR CONSULTATION: Hyperthyroidism The patient is referred by Rickey Valera MD HISTORY HPI: Clarissa Paris is a 58 year old female who comes in here for evaluation of tiredness, hair loss, thyroid concerns. She has been experiencing hair loss, weight gain, mood swings, and tiredness since around April 2023. She also mentioned tenderness of fingers in the morning. Per note from OB, Pt started crying while going over questions. Family history of breast cancer MGM and PGM. Sister with Torin's. New onset generalized itching Insomnia, which has gotten worse. Used to smoke tobacco, about 0.5 ppd, but quit on 10/2022. She is exercising: Rowing machine for 15 minutes, followed by resistance, and sometimes bicycle. REVIEW OF SYSTEMS: CONSTITUTIONAL: No unintended weight loss. HEENT: No frequent or severe headaches. EYES: No blurry vision. No diplopia. CARDIOVASCULAR: No significant chest pain. No significant ankle edema. HR up to 100 when resting. PULMONARY: No significant dyspnea. GASTROINTESTINAL: Frequent heartburn. Some constipation. GENITOURINARY: Nocturia average: 2. No new urinary complaints. Mild effort incontinence. NEUROLOGIC: No tremor. No numbness of concern. MUSCULOSKELETAL: Per HPI. MENTAL HEALTH: Per HPI. INTEGUMENTARY: Per HPI. ENDOCRINE: Per HPI PAST MEDICAL HISTORY Diagnosis Date Depression PAST SURGICAL HISTORY Procedure Laterality Date SNGL HYSTERECTOMY KNEE RIGHT OP SURGERY LAMINECTOMY,CERVICAL Social History Tobacco Use Smoking status: Every Day Types: Cigarettes Passive exposure: Current Smokeless tobacco: Never Substance Use Topics Alcohol use: Yes Drug use: Not Currently FAMILY HISTORY Problem Relation Age of Onset Torin Disease Sister Thyroid Maternal Grandmother Diabetes Maternal Grandmother Thyroid Maternal Grandfather Depression Maternal Grandfather Diabetes Paternal Grandmother Current Outpatient Medications Medication Sig ibuprofen (MOTRIN) 800 mg tablet q 8 HR. albuterol HFA (PROVENTIL HFA, VENTOLIN HFA) 90 mcg/actuation inhaler Albuterol Sulfate HFA methylPREDNISolone (MEDROL, JOHAN,) 4 mg Dose-Pack As instructed per package ibuprofen (MOTRIN) 800 mg tablet Take 1 tablet by mouth every 8 hours as needed for pain. LORazepam (ATIVAN) 2 mg tab Take 5 mg by mouth as needed. No current facility-administered medications for this visit. ALLERGIES Allergen Reactions Wellbutrin [Bupropi* Rash PHYSICAL EXAM: BP 100/62 (BP Site: Left Arm, BP Position: Sitting, BP Cuff Size: Extra Large Adult) Pulse 78 Ht 167.6 cm (5' 6 ) Wt 72 kg (158 lb 11.7 oz) BMI 25.62 kg/m Body mass index is 25.62 kg/m . Appearance: Well appearing, in no acute distress. Obese, not cushingoid HEENT: Anicteric sclerae. Non-injected conjunctivae. Neck: No visible goiter. No thyromegaly. Thyroid surface is irregular and left lobe seems larger than the right one. No lymphadenopathy Heart: RRR. No detectable murmur, gallop, or rub. Lungs: Clear to auscultation. No wheezing, rhonchi or rales. Abdomen: No significant striae. Extremities: No deformities. No edema. Neuro: Alert, speaking coherently. No involuntary motions. Skin: Normal temperature. No rash. LABS RESULTS: (10/20/23) TPO 137 (0-34) FT4 1.18 (0.61-1.12) TSH 0.01 IMAGING: No thyroid imaging. ASSESSMENT & PLAN: Clarissa Paris is a 58 year old female here for evaluation of hyperthyroidism. (E05.90) Hyperthyroidism (primary encounter diagnosis) Comment: Pt with multiple symptoms, some of which may be explained by hyperthyroidism, while some other may not. Clinically today there are no apparent signs of thyrotoxicosis. Pt had mildly TSH with mildly increased FT4 on 10/20/23. Plan to check TFT and TSI. 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 Besides TFTs, will do a thyroid US. Plan: T3, FREE, T4 FREE/FREE THYROXINE, THYROID STIMULATING HORMONE, US THYROID/PARATHYROID Return to office: 3 months Jay Hassan MD c.c. Rickey Valera MD documented in this encounter [facility] 12-27-2023 Note HNO ID: [id number] Author: JAY HASSAN MD Service: ? Author Type: Physician Type: Progress Notes Filed: 12/28/2023 11:04 Note Text: ENDOCRINOLOGY REASON FOR CONSULTATION: Hyperthyroidism The patient is referred by Rickey Valera MD HISTORY HPI: Clarissa Paris is a 58 year old female who comes in here for evaluation of tiredness, hair loss, thyroid concerns. She has been experiencing hair loss, weight gain, mood swings, and tiredness since around April 2023. She also mentioned tenderness of fingers in the morning. Per note from OB, Pt started crying while going over questions. Family history of breast cancer MGM and PGM. Sister with Torin's. New onset generalized itching Insomnia, which has gotten worse. Used to smoke tobacco, about 0.5 ppd, but quit on 10/2022. She is exercising: Rowing machine for 15 minutes, followed by resistance, and sometimes bicycle. REVIEW OF SYSTEMS: CONSTITUTIONAL: No unintended weight loss. HEENT: No frequent or severe headaches. EYES: No blurry vision. No diplopia. CARDIOVASCULAR: No significant chest pain. No significant ankle edema. HR up to 100 when resting. PULMONARY: No significant dyspnea. GASTROINTESTINAL: Frequent heartburn. Some constipation. GENITOURINARY: Nocturia average: 2. No new urinary complaints. Mild effort incontinence. NEUROLOGIC: No tremor. No numbness of concern. MUSCULOSKELETAL: Per HPI. MENTAL HEALTH: Per HPI. INTEGUMENTARY: Per HPI. ENDOCRINE: Per HPI PAST MEDICAL HISTORY Diagnosis Date Depression PAST SURGICAL HISTORY Procedure Laterality Date SNGL HYSTERECTOMY KNEE RIGHT OP SURGERY LAMINECTOMY,CERVICAL Social History Tobacco Use Smoking status: Every Day Types: Cigarettes Passive exposure: Current Smokeless tobacco: Never Substance Use Topics Alcohol use: Yes Drug use: Not Currently FAMILY HISTORY Problem Relation Age of Onset Torin Disease Sister Thyroid Maternal Grandmother Diabetes Maternal Grandmother Thyroid Maternal Grandfather Depression Maternal Grandfather Diabetes Paternal Grandmother Current Outpatient Medications Medication Sig ibuprofen (MOTRIN) 800 mg tablet q 8 HR. albuterol HFA (PROVENTIL HFA, VENTOLIN HFA) 90 mcg/actuation inhaler Albuterol Sulfate HFA methylPREDNISolone (MEDROL, JOHAN,) 4 mg Dose-Pack As instructed per package ibuprofen (MOTRIN) 800 mg tablet Take 1 tablet by mouth every 8 hours as needed for pain. LORazepam (ATIVAN) 2 mg tab Take 5 mg by mouth as needed. No current facility-administered medications for this visit. ALLERGIES Allergen Reactions Wellbutrin [Bupropi* Rash PHYSICAL EXAM: BP 100/62 (BP Site: Left Arm, BP Position: Sitting, BP Cuff Size: Extra Large Adult) Pulse 78 Ht 167.6 cm (5' 6 ) Wt 72 kg (158 lb 11.7 oz) BMI 25.62 kg/m? Body mass index is 25.62 kg/m?. Appearance: Well appearing, in no acute distress. Obese, not cushingoid HEENT: Anicteric sclerae. Non-injected conjunctivae. Neck: No visible goiter. No thyromegaly. Thyroid surface is irregular and left lobe seems larger than the right one. No lymphadenopathy Heart: RRR. No detectable murmur, gallop, or rub. Lungs: Clear to auscultation. No wheezing, rhonchi or rales. Abdomen: No significant striae. Extremities: No deformities. No edema. Neuro: Alert, speaking coherently. No involuntary motions. Skin: Normal temperature. No rash. LABS RESULTS: (10/20/23) TPO 137 (0-34) FT4 1.18 (0.61-1.12) TSH 0.01 IMAGING: No thyroid imaging. ASSESSMENT AND PLAN: Clarissa Paris is a 58 year old female here for evaluation of hyperthyroidism. (E05.90) Hyperthyroidism (primary encounter diagnosis) Comment: Pt with multiple symptoms, some of which may be explained by hyperthyroidism, while some other may not. Clinically today there are no apparent signs of thyrotoxicosis. Pt had mildly TSH with mildly increased FT4 on 10/20/23. Plan to check TFT and TSI. 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 Besides TFTs, will do a thyroid US. Plan: T3, FREE, T4 FREE/FREE THYROXINE, THYROID STIMULATING HORMONE, US THYROID/PARATHYROID Return to office: 3 months Jay Hassan MD c.c. Rickey Valera MD [facility] 12-08-2023 History of Present illness Narrative Images from the original note were not included. Rickey Valera MD Obstetrics and Gynecology Patient: Clarissa Paris : 1965 (57 y.o.) Exam Date: 12/08/2023 Reason for Visit - Chief Complaint Patient presents with Follow-up Follow up after in house ultrasound for ABD bloating, mood swings, hair loss, hx of hysterectomy. Patient: The patient reports a history of depression and is currently on Zoloft. She mentioned discussing an increase in her Zoloft dosage with her primary care doctor, but they did not approve the change. The patient experiences bloating and has a family history of breast cancer. She denies any known family history of ovarian cancer. The patient has been experiencing foot pain, particularly in the mornings upon waking up and walking. She describes the pain as a sharp sensation in the arch of her foot. The patient also reports hair loss and has seen a diesel instructor for this issue, who recommended checking for vitamin deficiencies. The patient is scheduled to see an bilingual branch manager on December 26 for a possible diagnosis of Torin's or thyroid cancer. She has also been considering a referral to a GI specialist for her bloating but is waiting to address other health concerns first. The patient recently had a knee replacement Visit Vitals OB Status Hysterectomy Smoking Status Every Day History of Present Illness, Associated Treatments and Results - OB History Para Term AB Living 2 2 0 0 0 2 SAB IAB Ectopic Multiple Live Births 0 0 0 0 2 # Outcome Date GA Lbr Osiel/2nd Weight Sex Type Anes PTL Lv 2 Para CS-LTranv 1 Para Vag-Spont Constitutional: Negative. HENT: Negative. Eyes: Negative. Respiratory: Negative. Cardiovascular: Negative. Gastrointestinal: Negative. Endocrine: Negative. Genitourinary: Negative. Musculoskeletal: Negative. Skin: Negative. Allergic/Immunologic: Negative. Neurological: Negative. Hematological: Negative. Psychiatric/Behavioral: Negative. Allergies Allergen Reactions Penicillin G Sodium GI intolerance Bupropion Rash Prednisone Rash Current Outpatient Medications: ALBUTEROL SULFATE HFA IN, Albuterol Sulfate HFA, Disp: , Rfl: ibuprofen 800 MG tablet, every 8 (eight) hours., Disp: , Rfl: LORazepam (Ativan) 0.5 MG tablet, 1 (one) time each day at the same time., Disp: , Rfl: Past Medical History: Diagnosis Date Anxiety Asthma (CMS/HCC) Chronic neck pain Depression (CMS/HCC) H/O degenerative disc disease Right knee pain Past Surgical History: Procedure Laterality Date BREAST BIOPSY Left benign CERVICAL FUSION 1998 c5/c6 - Deshawn ; [facility]tz CERVICAL FUSION C4,5,6,7 fusion SECTION, LOW TRANSVERSE 1994 ENDOMETRIAL ABLATION KNEE SURGERY Right 08/2018 knee arthoscopy miniscus tear TOTAL ABDOMINAL HYSTERECTOMY 2009 TUBAL LIGATION 1996 Family History Problem Relation Name Age of Onset No Known Problems Mother No Known Problems Father Breast cancer Maternal Grandmother Breast cancer Paternal Grandmother Breast cancer Other 2 other distant maternal relative Melanoma Neg Hx Social History Tobacco Use Smoking Status Every Day Current packs/day: 0.50 Types: Cigarettes Smokeless Tobacco Never Physical Exam - General appearance, mentation, extraocular movements, facial strength and movement, hearing, upper and lower extremity strength and tone, sensation to gross testing, coordination, and gait are normal or at baseline unless noted below. Physical Exam Constitutional: Appearance: Normal appearance. HENT: Head: Normocephalic and atraumatic. Neurological: Mental Status: She is alert and oriented to person, place, and time. Psychiatric: Mood and Affect: Mood normal. Behavior: Behavior normal. US today Transvaginal scans of the pelvis were obtained. The uterus is surgically absent. The vaginal cuff appears normal. Both ovaries are visible and appear normal in size and echotexture. There is no overt adnexal mass. Assessment/Plan ICD-10-CM 1. Mood swings R45.86 2. Hair loss L65.9 3. Abdominal bloating R14.0 4. Family history of breast cancer Z80.3 5. Rash R21 Clarissa was seen today for follow-up. Diagnoses and all orders for this visit: Mood swings Hair loss Abdominal bloating Family history of breast cancer Rash a) Encourage the patient to discuss concerns about mood swings with their primary care physician. b) Consider referral to a psychologist or psychiatrist for further evaluation and management if needed. 2. Foot pain and swelling in the morning: - Patient experiences pain and swelling in feet upon waking up. - Plan: a) Recommend [id number] pain relief medication as needed. b) Advise the patient to elevate feet when possible and consider using compression stockings. c) Monitor symptoms and consider referral to a preschool principal if symptoms worsen or persist. 3. Family history of breast cancer: - Patient has a family history of breast cancer but no known history of ovarian cancer. - Plan: a) Continue routine breast cancer screening as per guidelines. b) Educate the patient on the importance of self-breast exams and reporting any changes or concerns. 4. Bloating and possible ovarian issues: - Patient reports bloating; ultrasound and blood work were normal. - Plan: a) Reassure the patient that current tests do not indicate any ovarian issues. b) Consider referral to a lining closer if bloating persists or worsens. 5. Possible Torin's or thyroid cancer: - Patient has an upcoming appointment with an bilingual branch manager. - Plan: a) Await results from the bilingual branch manager's evaluation and coordinate care as needed. 6. Hair loss: - Patient has seen a diesel instructor who recommended vitamins. - Plan: a) Encourage the patient to follow the diesel instructor's recommendations. b) Reevaluate after the bilingual branch manager's appointment to determine if further intervention is needed. 7. Knee pain and possible knee replacement: - Patient has consulted with an orthopedic surgeon regarding knee replacement. - Plan: a) Support the patient in making an informed decision about the timing of knee replacement surgery. b) Encourage the patient to maintain a healthy weight and engage in low-impact exercises to manage knee pain. documented in this encounter [facility] 12-07-2023 History of Present illness Narrative History of present illness: History of advancing PVNS right knee Advancing arthritis right knee Patient had an injection back in June 2023 and is done quite well all summer she is timing up her injections and treatment options Her goal is to be really functional for her daughter's wedding in October 2024 Physical exam: General: No acute distress or breathing difficulty or discomfort, pleasant and cooperative with the examination. Extremities: The affected right knee was examined and inspected and was tender to touch along the medial and lateral aspect with catching, locking or mechanical symptoms. The skin was intact without breakdown or open wound. Old incisions of present were healed. There was a mild Mulu exam seen with some evidence of instability and weakness in the collateral ligaments with varus valgus stressing and laxity in the anterior or posterior planes. There was a negative Marino's test pivot shift test and posterior drawer sign with no foot drop, numbness or tingling. Sensation, reflexes and pulses in the foot and ankle are preserved. There was an effusion. Range of motion showed good straight leg raise with flexion to 150 degrees and extension to 0 degrees. The patient had the ability to bear weight but with discomfort. The patient's gait was antalgic secondary to discomfort Diagnostic studies: MRI shows advancing tricompartmental arthritis, advancing PVNS, persistent moderate to severe arthrosis patellofemoral joint Impression: Right knee advancing arthritis with a history of PVNS no obvious new meniscus tear Plan: At this point organ to try and time up the injections we will see her back when the knee flares up she did quite well with the last injection series back in June 2023 hopefully we can in occasionally inject her knee over the winter spring and then maybe a couple of weeks before her daughter's wedding If the knee gets really bad and the injections fail we could talk about knee arthroplasty but would like to perform that surgery before the middle of June 2024 so she is fully recovered for October 2024 Today we did not inject her knee so she can call at any time for any injection documented in this encounter [facility] Work Phone: 11-16-2023 History of Present illness Narrative Images from the original note were not included. Rickey Valera MD Obstetrics and Gynecology Patient: Clarissa Paris : 1965 (57 y.o.) Yearly Wellness Exam Date: 11/16/2023 Reason for Visit - Chief Complaint Patient presents with Gynecologic Exam LMP: HYST Last Mammogram: 02/09/2019 Last Pap: 01/16/19- neg Colonoscopy: about 6 years Complaints: The patient has been experiencing hair loss and mood swings. The patient did have a hysterectomy but does still have ovaries. The patient just got labs done for for these symptoms that are going on this past Tuesday Rash that is coming and going all over body. Patient is at risk with depression screening, pt started crying while going over questions, Family history of breast cancer mgm and pgm Sister Torin's New onset generalized itching Endocrinology consult [facility] Visit Vitals BP 118/64 Wt 147 lb BMI 25.23 kg/m OB Status Hysterectomy Smoking Status Every Day BSA 1.74 m History of Present Illness, Associated Treatments and Results - OB History Para Term AB Living 2 2 0 0 0 2 SAB IAB Ectopic Multiple Live Births 0 0 0 0 2 # Outcome Date GA Lbr Osiel/2nd Weight Sex Type Anes PTL Lv 2 Para CS-LTranv 1 Para Vag-Spont Review of Systems - Constitutional: Negative. HENT: Negative. Eyes: Negative. Respiratory: Negative. Cardiovascular: Negative. Gastrointestinal: Negative. Endocrine: Negative. Genitourinary: Negative. Musculoskeletal: Negative. Skin: Negative. Allergic/Immunologic: Negative. Neurological: Negative. Hematological: Negative. Psychiatric/Behavioral: Negative. Allergies Allergen Reactions Penicillin G Sodium GI intolerance Bupropion Rash Prednisone Rash Current Outpatient Medications: ALBUTEROL SULFATE HFA IN, Albuterol Sulfate HFA, Disp: , Rfl: ibuprofen 800 MG tablet, every 8 (eight) hours., Disp: , Rfl: LORazepam (Ativan) 0.5 MG tablet, 1 (one) time each day at the same time., Disp: , Rfl: Past Medical History: Diagnosis Date Anxiety Asthma (CMS/HCC) Chronic neck pain Depression (CMS/HCC) H/O degenerative disc disease Right knee pain Past Surgical History: Procedure Laterality Date BREAST BIOPSY Left benign CERVICAL FUSION 1998 c5/c6 - Deshawn ; [facility]tz CERVICAL FUSION C4,5,6,7 fusion SECTION, LOW TRANSVERSE 1994 ENDOMETRIAL ABLATION KNEE SURGERY Right 08/2018 knee arthoscopy miniscus tear TOTAL ABDOMINAL HYSTERECTOMY 2009 TUBAL LIGATION 1996 Family History Problem Relation Name Age of Onset No Known Problems Mother No Known Problems Father Breast cancer Maternal Grandmother Breast cancer Paternal Grandmother Breast cancer Other 2 other distant maternal relative Melanoma Neg Hx Social History Tobacco Use Smoking Status Every Day Current packs/day: 0.50 Types: Cigarettes Smokeless Tobacco Never Physical Exam - General appearance, mentation, extraocular movements, facial strength and movement, hearing, upper and lower extremity strength and tone, sensation to gross testing, coordination, and gait are normal or at baseline unless noted below. Physical Exam Constitutional: Appearance: Normal appearance. Genitourinary: Right Labia: No lesions. Left Labia: No lesions. Vaginal cuff intact. Mild vaginal atrophy present. Right Adnexa: not tender and no mass present. Left Adnexa: not tender and no mass present. Cervix is absent. Uterus is absent. Breasts: Right: Normal. No mass or nipple discharge. Left: Normal. No mass or nipple discharge. HENT: Head: Normocephalic and atraumatic. Cardiovascular: Rate and Rhythm: Normal rate and regular rhythm. Pulmonary: Breath sounds: Normal breath sounds. Abdominal: General: There is no distension. Palpations: Abdomen is soft. There is no mass. Tenderness: There is no abdominal tenderness. Musculoskeletal: General: Normal range of motion. Cervical back: Neck supple. Neurological: Mental Status: She is alert and oriented to person, place, and time. Skin: General: Skin is warm and dry. Psychiatric: Mood and Affect: Mood normal. Assessment/Plan ICD-10-CM 1. Encounter for gynecological examination without abnormal finding Z01.419 SENDOUT TEST MISCELLANEOUS [facility] 2. Mood swings R45.86 3. Hair loss L65.9 Ambulatory referral to Dermatology 4. Encounter for screening mammogram for malignant neoplasm of breast Z12.31 Bilateral screening mammogram with tomosynthesis 5. Screening for malignant neoplasm of cervix Z12.4 SENDOUT TEST MISCELLANEOUS [facility] 6. Abdominal bloating R14.0 Clarissa was seen today for gynecologic exam. Diagnoses and all orders for this visit: Encounter for gynecological examination without abnormal finding (Primary) - SENDOUT TEST MISCELLANEOUS [facility] Mood swings Hair loss - Ambulatory referral to Dermatology; Future Encounter for screening mammogram for malignant neoplasm of breast - Bilateral screening mammogram with tomosynthesis; Future Screening for malignant neoplasm of cervix - SENDOUT TEST MISCELLANEOUS [facility] Abdominal bloating Pap and exam performed. Mammogram ordered Results can be found in MyChart in 7 days Hair loss discussed and dermatology consult ordered 1. Menopause-related symptoms: - Hair loss - Emotional ups and downs - Hot flashes - Plan: a) Referral to diesel instructor for evaluation and management of hair loss and rash. b) Discuss with Dr. Payne regarding possible treatment options for mood stabilization. c) Educate patient on the fluctuating nature of menopausal symptoms and the importance of maintaining good vaginal health. d) Recommend todv-qtz-[id number] vaginal moisturizer for vaginal dryness and atrophy. Estrace or DHEAS creams are also anoption 2. Thyroid dysfunction - Plan: a) Patient has an appointment with an bilingual branch manager at [facility] on December 26. Encourage patient to keep the appointment for further evaluation and management. 3. Rash: - Plan: a) Referral to diesel instructor for evaluation and management. 4. Abdominal bloating and pain: - Plan: a) Order an abdominal ultrasound to evaluate ovaries and rule out any underlying pathology. b) Discuss with Dr. Payne regarding possible treatment options for abdominal bloating related to menopause. 5. Vaginal atrophy: - Plan: a) Recommend [id number] vaginal moisturizer for vaginal dryness and atrophy. . 7. Smoking cessation: - Plan: a) Encourage patient to continue abstaining from smoking for overall health improvement. Return 1 year documented in this encounter [facility] 11-16-2023 Miscellaneous Notes ip documented in this encounter [facility] 11-16-2023 Progress note Formatting of t his note might be different from the original. ip [facility] 07-26-2023 History of Present illness Narrative Established patient to the practice follow-up MRI lumbar spine. This the patient was having low back pain and right leg symptoms. It was more right leg symptoms when she saw Dr. Rojas recently. She says she went to a couple therapy sessions they did some traction and a pretty much help with a lot of her right leg symptoms. He came back slightly recently. But not like it was before it is not affecting her daily functioning and life. She is also getting a knee replacement with Dr. Patricio becker in October. She denies bowel or bladder complaints, saddle anesthesia gait or balance changes. Denies any spine surgeries. Physical exam: Well-nourished, well kept. No lymphangitis or lymphadenopathy in the examined extremities. Good perfusion to the lower extremities bilaterally. Dorsalis pedis pulses 2+. Capillary refill to the digits brisk. No distal edema. Gait normal. Can walk on heels and toes. Examination of the back reveals no swelling, step-off, or point tenderness. Range of motion with flexion, extension, side bending and rotation is well maintained without crepitance, instability, or exacerbation of pain. Strength is within normal limits. Examination of the lower extremities reveals no point tenderness, swelling, or deformity. Range of motion of the hips, knees, and ankles are full without crepitance, instability, or exacerbation of pain. Strength is 5/5 throughout. No redness, abrasions, or lesions on the lower extremities bilaterally. Gross sensation intact to the lower extremity is bilaterally. Affect normal. MRI: MRI was reviewed report was reviewed as well showing very mild spondylolisthesis at L5-S1. There is there is an annular tear. And there is some foraminal narrowing bilaterally at that L5-S1 level. But not severe. Assessment: This patient was having low back pain and right leg symptoms more right leg than back that symptoms are much better with physical therapy and traction that helped. She says is not bad enough to do have any type of spinal surgery. Which I told her would probably be an interbody fusion at L5-S1 with instrumentation. We will try we discussed those risk benefits with her. We also discussed continued conservative care physical therapy chiropractic acupuncture inversion tables. Plan: Patient wants to continue with conservative care. Will follow-up with her as needed. For complete plan and/or surgical details, please refer to Dr. Rojas's portion of this split dictation. Jurgen Roldan PA-C In a [id number] encounter, I performed a history and physical examination, discussed pertinent diagnostic studies if indicated, and discussed diagnosis and management strategies with both the patient and the midlevel provider. I reviewed the midlevel's note and agree with the documented findings and plan of care. Patient with significant improvement in her right leg radiculopathy and back pain with physical therapy. She felt the traction helped. She is can to keep doing exercises at home. At this point she is stabilized. Her MRI shows stenosis bilateral foraminally at L5-S1 from a spondylolisthesis. We will have her follow-up with us on a as needed basis. Taqueria Rojas MD Orthopedic surgery documented in this encounter [facility] Work Phone: 07-21-2023 History of Present illness Narrative Associated Order(s): L Inj/Asp: R knee Post-Procedure Diagnose(s): Primary osteoarthritis of right knee History of present illness: Right knee osteoarthritis Physical exam: General: No acute distress or breathing difficulty or discomfort, pleasant and cooperative with the examination. Extremities: The affected right knee was examined and inspected and was tender to touch along the medial and lateral aspect with catching, locking or mechanical symptoms. The skin was intact without breakdown or open wound. Old incisions of present were healed. There was a mild Mulu exam seen with some evidence of instability and weakness in the collateral ligaments with varus valgus stressing and laxity in the anterior or posterior planes. There was a negative Marino's test pivot shift test and posterior drawer sign with no foot drop, numbness or tingling. Sensation, reflexes and pulses in the foot and ankle are preserved. There was an effusion. Range of motion showed good straight leg raise with flexion to 150 degrees and extension to 0 degrees degrees. The patient had the ability to bear weight but with discomfort. The patient's gait was antalgic secondary to discomfort Before aspiration injection the benefits of a cortisone injection including infection, local skin irritation, skin atrophy, calcification, continued pain and discomfort, elevated blood sugar, burning, failure to relieve pain, possible late infection were discussed with the patient. Postprocedure discomfort can be alleviated with additional medications, ice, elevation, rest over the first 24 hours as recommended. Patient verbalized understanding and wanted to proceed with the planned procedure. After informed consent was provided and allergies verified, the patient was positioned appropriately on the bed. The right knee to be aspirated and injected was prepped and draped in a sterile fashion. The skin was anesthetized with ethyl chloride spray. A joint aspiration was to be performed an 18-gauge needle was used otherwise a 22-gauge needle was used to inject the appropriate joint. Joint injection was performed with a mixture of 5 cc 1% lidocaine plain and 2 cc Kenalog 40 mg/mL L. The needle was removed and the puncture site closed and sealed with a Band-Aid. The patient tolerated the procedure well. Diagnostic studies: No new x-rays Impression: Knee osteoarthritis Plan: Right knee injection gentle range of motion range of motion program low impact program see her back as needed for additional injections L Inj/Asp: R knee on 07/21/2023 9:21 AM Indications: pain and diagnostic evaluation Details: 22 G needle, anteromedial approach Medications: 5 mL lidocaine 10 mg/mL (1 %); 2 mg triamcinolone acetonide 40 mg/mL Outcome: tolerated well, no immediate complications Procedure, treatment alternatives, risks and benefits explained, specific risks discussed. Consent was given by the patient. Immediately prior to procedure a time out was called to verify the correct patient, procedure, equipment, desktop support technician and site/side marked as required. Patient was prepped and draped in the usual sterile fashion. documented in this encounter [facility] Work Phone: 07-05-2023 History of Present illness Narrative Clarissa Paris is a 57 y.o. female who presents for New Patient Visit of the Lower Back (Low back pain/Has tried therapy and chiropractic/xrays). HPI: 57-year-old female here for new patient visit low back pain. She denies any fever chills nausea vomiting night sweats. She has no bowel or bladder complaints. Physical exam: Well-nourished, well kept.No lymphangitis or lymphadenopathy in the examined extremities. Gait normal. Can stand on heels and toes. Examination of the back shows tenderness in the paraspinous musculature in the right lumbosacral area. There is minimally decreased range of motion in all directions due to guarding/muscle spasms and pain at extremes. There is good strength and no instability. Examination of the lower extremities reveals no point tenderness, swelling, or deformity. Range of motion of the hips, knees, and ankles are full without crepitance, instability, or exacerbation of pain. Strength is 5/5 throughout. No redness, abrasions, or lesions on extremities Gross sensation intact in the extremities. Deep tendon reflexes 3+ bilateral patella. clonus negative. Mild left-sided Ranjeet's. affect normal. Alert and oriented 3. Coordination normal. Imaging studies: Reviewed AP lateral flexion-extension plain films of the lumbar spine. Assessment: 57-year-old female here for new patient visit of the low back and right leg pain. Overall the leg pain is probably worse 70% in general. 30% back. She gets a little bit of involvement on the left but not much. She is here at the recommendation of Dr. Taqueria Gilliam. At night the leg bothers her much much worse. This been going on for about 2 months. No precipitating injury. She has a history of 2 cervical fusions in the past, and she does have some chronic neck pain. She sees Dr. Taqueria Gilliam for right knee issues and injections, so she has some pre-existing right leg issues. She has done physical therapy for her back but it has been over a year. She does have a distant history of some rn coronary care unit as well. No history of back surgery or epidural injections. She has very brisk patellar reflexes bilateral, I do get a very mild left-sided Ranjeet. We have ordered and reviewed test today, x-rays. I have reviewed the notes from Dr. Taqueria Gilliam from March 24, 2023, this discusses her right leg and knee issue. This is an undiagnosed new problem with uncertain prognosis. This is starting to affect her bodily function. For complete plan and/or surgical details, please refer to Dr. Rojas's portion of this split dictation. -Chin Reynolds PA-C In a [id number] encounter, I performed a history and physical examination, discussed pertinent diagnostic studies if indicated, and discussed diagnosis and management strategies with both the patient and the midlevel provider. I reviewed the midlevel's note and agree with the documented findings and plan of care. Acute onset of right leg radicular symptoms a couple months ago. She does have a bad knee that Dr. Gilliam is treating but he sent her to see us for radiculopathy. Her x-rays look good except a grade 1 spondylolisthesis of L5-S1. 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 When she gets up and moves around the pain goes away. The pain involves her entire right leg going down to the ankle with pain and numbness and tingling. There is no weakness. There is no left-sided symptoms. There is no bowel or bladder changes. She has had no formal treatment for this. We are going to get her into physical therapy and get an MRI of her lumbar spine. This is a new acute problem of uncertain prognosis. We have reviewed Dr. Gilliam's notes. We have ordered and reviewed x-rays today. Taqueria Rojas MD Orthopedic surgery documented in this encounter [facility] Work Phone: 03-24-2023 History of Present illness Narrative Associated Order(s): L Inj/Asp: R knee History of present illness: Patient with a history of right knee arthritis she goes back and forth between [facility] and gel shots the last gel shot in December did not help the knee swollen irritable painful she is trying to get by and avoid arthroplasty Physical exam: General: No acute distress or breathing difficulty or discomfort, pleasant and cooperative with the examination. Extremities: The affected right knee was examined and inspected and was tender to touch along the medial and lateral aspect with catching, locking or mechanical symptoms. The skin was intact without breakdown or open wound. Old incisions of present were healed. There was a mild Mulu exam seen with some evidence of instability and weakness in the collateral ligaments with varus valgus stressing and laxity in the anterior or posterior planes. There was a negative Marino's test pivot shift test and posterior drawer sign with no foot drop, numbness or tingling. Sensation, reflexes and pulses in the foot and ankle are preserved. There was an effusion. Range of motion showed good straight leg raise with flexion to 150 degrees and extension to 0 degrees degrees. The patient had the ability to bear weight but with discomfort. The patient's gait was antalgic secondary to discomfort Before aspiration injection the benefits of a cortisone injection including infection, local skin irritation, skin atrophy, calcification, continued pain and discomfort, elevated blood sugar, burning, failure to relieve pain, possible late infection were discussed with the patient. Postprocedure discomfort can be alleviated with additional medications, ice, elevation, rest over the first 24 hours as recommended. Patient verbalized understanding and wanted to proceed with the planned procedure. After informed consent was provided and allergies verified, the patient was positioned appropriately on the bed. The right knee to be aspirated and injected was prepped and draped in a sterile fashion. The skin was anesthetized with ethyl chloride spray. A joint aspiration was to be performed an 18-gauge needle was used otherwise a 22-gauge needle was used to inject the appropriate joint. Joint injection was performed with a mixture of 5 cc 1% lidocaine plain and 2 cc Celestone Soluspan 6 mg per mL. The needle was removed and the puncture site closed and sealed with a Band-Aid. The patient tolerated the procedure well. 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 Consent was given by the patient. Immediately prior to procedure a time out was called to verify the correct patient, procedure, equipment, desktop support technician and site/side marked as required. Patient was prepped and draped in the usual sterile fashion. documented in this encounter [facility] Work Phone: 01-06-2023 History of Present illness Narrative Before the right injection the benefits of a hyaluronic acid injection including infection, local skin irritation, skin atrophy, calcification, continued pain and discomfort, elevated blood sugar, burning, failure to relieve pain, possible late infection were discussed with the patient. Postprocedure discomfort can be alleviated with additional medications, ice, elevation, rest over the first 24 hours as recommended. Patient verbalized understanding and wanted to proceed with the planned procedure. After informed consent was provided and allergies verified, the patient was positioned appropriately on the bed. The RIGHT KNEE to be injected was prepped and draped in a sterile fashion. The skin was anesthetized with ethyl chloride spray. A 22-gauge needle was used to inject the appropriate joint. Joint injection was performed with Synvisc 1 injection contains 48 mg of hyaluronic acid per 6 mL was performed. The needle was removed and the puncture site closed and sealed with a Band-Aid. The patient tolerated the procedure well. documented in this encounter [facility] Work Phone: 11-29-2022 Evaluation note Encounter Date Diagnosis Assessment Notes Nov, Acute bronchitis, unspecified organism (ICD-10 - J20.9) Drink plenty of fluids and get plenty of rest. If symptoms worsen or do not improve in 3-5 days, return to urgent care if you can not get in to see your pcp. May take tylenol as needed for fever/body aches. 56 y/o female who has a history of reactive airway disease and pneumonia, here today for sob and cough. Covid and influenza swabs ordered and are negative. Duoneb ordered given the diffuse wheezing and sob. She does clinically improve after treatment. However, given patient's history of pneumonia and given that she states, my chest feels like how it does when I had pneumonia. Will order CXR to screen for pneumonia or any other cardiopulmonary pathologies. I considered life threatening cardiopulmonary patholoigies, however, given that she is not hypoxic, tachypneic, does not have any calf tenderness, or leg swelling, and that there are no crackles, life threatening cardiopulmonary pathologies are unlikely. I personally reviewed and interpreuted all of the xray imaging. There are no appreciable infiltrates, effusions, pulmonary edema, or pneumothoraces. Given history, exam , and imaging findings, diagnosis is most consistent with acute bronchitis. Will prescribe benzonatate, doxycycline, and prednisone. Educated about red flag symptoms to watch out for and advised to go to the ER if she develops red flag symptoms. Patient understands and agrees with the plan. Nov, Shortness of breath (ICD-10 - R06.02) Nov, Cough (ICD-10 - R05.9) [employer] Other 09-07-2023 NoteProvider Impressions TREATMENT PLAN: Cortisone injection today. We will order Gel One as her last cortisone injection did not quite lasta whole three months. We will put the gel order in now. She is trying to avoid arthroplasty. Before injection, the risks of this procedure including but not limited to; infection, local skin irritation, skin atrophy, calcification, continued pain or discomfort, elevated blood sugar, burning,failure to relieve pain, possible late infection were all discussed with the patient. The patient verbalized understanding and consented to the procedure. After informed consent was provided, patientidentification was confirmed, and allergies were verified, the patient was appropriately positioned. The site was marked and time-out performed. The injection site was prepped in the usual sterile manner to provide a sterile environment. The skin was anesthetized with ethyl chloride spray. The aspiration/injection was performed with standard technique. The needle was withdrawn and the puncture site was secured with a Band-Aid. The patient tolerated the procedure well without complication. Post-procedure discomfort can be alleviated with additional medication, ice, elevation, and rest over the first 24 hours as recommended. The injection was 2 cc of Celestone and 5 cc lidocaine plain 1%, right knee. Chief Complaint F/U Rt knee after cortisone injection 08/02/22 History of Present IllnessPatient here for right knee. 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 The skin was intact without breakdown or open wound. Old incisions if present were healed. There was a mild Mulu exam seen with some evidence of instability AND weakness in the collateral ligaments with varus/valgus stress AND laxity in the anterior and posterior planes. There was a negative Marino test, pivot shift test and posterior drawer sign with no foot drop, numbness or tingling. Sensation, reflexes, and pulses in the foot and ankle are preserved. There was an effusion. Range of motion showed good straight leg raise with extension to 0 degrees and flexion to 150 degrees. The patient had the ability to bear weight, but with discomfort. The patient?s gait was antalgic secondary to the discomfort. Severe pain medially. Signatures Electronically signed by : Vidya Perez, ; Nov 06 2022 9:17PM EST (Pack Room Operator/Recorder) Electronically signed by : Taqueria Gilliam MD; Nov 08 2022 8:10AM [id number] Instructions* Patient Instructions* Jose Bejarano APRN.MARIE - 09/15/2022 3:44 PM EDT ASSESSMENT/PLAN: 1. Chronic neck pain - ICD9: 723.1, 338.29, ICD10: M54.2, G89.29 (primary diagnosis) flare - METHYLPREDNISOLONE 4 MG TABLETS IN A DOSE PACK - IBUPROFEN 800 MG TABLET 2. Sore throat - ICD9: 462, ICD10: J02.9 - Alere Strep Test negative, no culture pending - Discussed supportive care treatment with fluids, rest and analgesia. - The patient should follow up as needed if symptoms persist or worsen - STREP A MOLECULAR (POC) - IBUPROFEN 800 MG TABLET 3. Headache, unspecified headache type - ICD9: 784.0, ICD10: R51.9 - METHYLPREDNISOLONE 4 MG TABLETS IN A DOSE PACK - IBUPROFEN 800 MG TABLET 4. Wheezing - ICD9: 786.07, ICD10: R06.2 - METHYLPREDNISOLONE 4 MG TABLETS IN A DOSE PACK - All questions answered Jose Bejarano CNP [facility] History of Present illness Narrative* Jose Bejarano APRN.CNP - 09/15/2022 3:40 PM EDT cc - neck pain with CASIANO HPI- pt with h/o neck fusion presents with two day h/o increased neck pain, CASIANO, dizziness. Taking ibuprofen also with cough and wheezing; + tobacco use; no fevers; using her Albuterol inhaler No past medical history on file. No past surgical history on file. No family history on file. Social History Tobacco Use Smoking status: Every Day Types: Cigarettes Passive exposure: Current Smokeless tobacco: Never Substance Use Topics Alcohol use: Yes Drug use: Not Currently ALLERGIES Allergen Reactions Wellbutrin [Bupropi* Rash PE- BP 135/86 (BP Site: Right Arm, BP Position: Sitting, BP Cuff Size: Regular Adult) Pulse 81 Temp36.9 C (98.5 F) (Temporal) Resp 18 Wt 64.9 kg (143 lb) SpO2 98% Gen: 56 yo female in NAD + right sided mandibular tenderness neg lymphadenopathy Heart: RRR Lungs: + bilat wheezing Neck - Range of Motion Spine: extension limited, flexion limited, lateral rotation limited Motor/Gait: normal gait ASSESSMENT/PLAN: 1. Chronic neck pain - ICD9: 723.1, 338.29, ICD10: M54.2, G89.29 (primary diagnosis) flare - METHYLPREDNISOLONE 4 MG TABLETS IN A DOSE PACK - IBUPROFEN 800 MG TABLET 2. Sore throat - ICD9: 462, ICD10: J02.9 - Alere Strep Test negative, no culture pending - Discussed supportive care treatment with fluids, rest and analgesia. - The patient should follow up as needed if symptoms persist or worsen - STREP A MOLECULAR (POC) - IBUPROFEN 800 MG TABLET 3. Headache, unspecified headache type - ICD9: 784.0, ICD10: R51.9 - METHYLPREDNISOLONE 4 MG TABLETS IN A DOSE PACK - IBUPROFEN 800 MG TABLET 4. Wheezing - ICD9: 786.07, ICD10: R06.2 - METHYLPREDNISOLONE 4 MG TABLETS IN A DOSE PACK - Continue Albuterol as already prescribed - All questions answered Jose Bejarano CNP [facility] Evaluation note* Encounter Date Diagnosis Assessment Notes Treatment Notes Treatment Clinical Notes Feb, Contact with and (suspected) exposure to other viral communicable diseases (ICD-10 - Z20.828) covid pos, see above. Feb, COVID (ICD-10 - U07.1) Covid test pos in office today. Supportive care as directed. Push fluids and rest. Pt is to take otc antipyretic prn for fever and aches. Pt is to take otc cough suppressant prn for cough. They are to follow the recommended stay at home quarantine rules for 5 days from onset of sx with 5 days of mask wearing in public and they are to avoid contact with others in the home. Pt is to be re-evaluated after tx if sx worsen or don't improve by pcp or UC. Discussed at length sx of resp distress that would indicate need for immediate ER tx. Sx include but not limited to worsening SOB, wheeze, dyspnea, difficulty swallowing or breathing, and chest pain. Go straight to ER for any of these sx. Pt is to call the office with any questions or concerns regarding dx and tx. Information sheet with test results and quarantine guidelines was provided to pt in office today. Pt was referred to PCP for chronic management. Pt understood and agreed to tx plan. [employer] Other 06-15-2022 NoteHNO ID: [id number] Author: Taqueria Coto MD Service: ? Author Type: Physician Type: Progress Notes Filed: 08/12/2021 1:37 PM Note Text: [id number] female initially evaluated for microscopic hematuria. She is a current smoker and we decided to evaluate with a CT urogram and cystoscopy. CT urogram 07/21/2021 1. ?No evidence of urinary tract calculus or hydroureteronephrosis. 2. ?No evidence of suspicious urinary tract mass. ?Multiple rounded hypodensities in the left kidney, likely representing cysts. 3. ?Stable subcentimeter hypodensity in the right hepatic lobe, likely representing a cyst or hemangioma. .'s HOPS NOTE/ UNIVERSAL PROTOCOL/ SAFETY CHECKLIST Sign In History and Physical Exam reviewed and is unchanged. Primary Diagnosis: Microscopic hematuria Sign in Communication: Completed. Time Out: Immediately prior to procedure, Team confirms the correct patient, correct procedure, cystoscopy, correct site and site marking, correct position (if applicable). Sign Out: Sign out discussion: Completed. Antibiotic(s) given immediately prior to procedure: Bactrim Details of procedure: as below Cystoscopy - Normal Urethra - Normal VN: open Urothelium: Normal, no evidence of tumor stone, CIS, foreign body, diverticuli, etc. Trabeculation: none Inflammation: mild Ureteral Orifices: Normal, clear efflux bilaterally Trigone: Normal Preoperative diagnosis: Microscopic hematuria Postoperative diagnosis: Same Procedure: Office cystoscopy Surgeon: Dr. Taqueria Coto Sterile technique maintained throughout Cystoscope: Flexible Procedure: The patient was taken to the cystoscopy suite and placed in the dorsal lithotomy position. She was then prepped and draped in the usual manner. Lidocaine gel was placed per urethra for local anasthesia. Cystoscopy was then performed using a Flexible Storz cystoscope. Sterile technique was maintained throughout. Please refer to above for specific findings during this part of the procedure. After carefully and atraumatically inspecting the urethra, VN, bladder, and UO's, the bladder was emptied and the cystoscope was removed. The patient tolerated the procedure well and there were no complications. She was take for recovery in good condition. Anesthesia: Lidojet Findings: see above Complications: None EBL: None Disposition: Cystoscopy GRACIELA. Reassured the patient of the microscopic hematuria as not from a serious cause. Recommended continued care with her primary care physician and to come back and see me if she develops gross hematuria or new urinary symptoms. Ducted to monitor her kidney function and blood pressure. Taqueria Coto MDProvidence Behavioral Health [id number] Nurse Note* Sangita Mensah RN - 08/12/2021 1:21 PM EDT [facility] - DEPARTMENT OF UROLOGY AFTER YOUR CYSTOSCOPY Taqueria Coto MD Cysto post procedure instructions You have undergone a cystoscopy. Your doctor has inserted a telescope into your urinary bladder through your urethra to view the inside of your bladder. WHAT TO EXPECT: Possible burning during urination and/or blood-tinged urine. WHAT TO DO: Resume normal activity and medications. Drink 6-8 glasses of fluid each day for 3 days to help flush your urinary system. If a Biopsy was done, avoid Aspirin for 3 days. MEDICATIONS: You were given a preventative antibiotic, prior to the procedure. WHEN TO CALL THE DOCTOR: IF you have a fever over 100 degrees Fahrenheit. IF you are unable to urinate. IF blood clots form in your urine. IF your urine becomes very bloody and does not clear with drinking extra fluids. [facility] History of Present illness Narrative* Taqueria Coto MD - 08/12/2021 1:00 PM EDT [id number] female initially evaluated for microscopic hematuria. She is a current smoker and we decided to evaluate with a CT urogram and cystoscopy. CT urogram 07/21/2021 1. No evidence of urinary tract calculus or hydroureteronephrosis. 2. No evidence of suspicious urinary tract mass. Multiple rounded hypodensities in the left kidney, likely representing cysts. 3. Stable subcentimeter hypodensity in the right hepatic lobe, likely representing a cyst or hemangioma. 's HOPS NOTE/ UNIVERSAL PROTOCOL/ SAFETY CHECKLIST Sign In History and Physical Exam reviewed and is unchanged. Primary Diagnosis: Microscopic hematuria Sign in Communication: Completed. Time Out: Immediately prior to procedure, Team confirms the correct patient, correct procedure, cystoscopy, correct site and site marking, correct position (if applicable). Sign Out: Sign out discussion: Completed. Antibiotic(s) given immediately prior to procedure: Bactrim Details of procedure: as below Cystoscopy - Normal Urethra - Normal VN: open Urothelium: Normal, no evidence of tumor stone, CIS, foreign body, diverticuli, etc. Trabeculation: none Inflammation: mild Ureteral Orifices: Normal, clear efflux bilaterally Trigone: Normal Preoperative diagnosis: Microscopic hematuria Postoperative diagnosis: Same Procedure: Office cystoscopy Surgeon: Dr. Taqueria Coto Sterile technique maintained throughout Cystoscope: Flexible Procedure: The patient was taken to the cystoscopy suite and placed in the dorsal lithotomy position. She was then prepped and draped in the usual manner. Lidocaine gel was placed per urethra for local anasthesia. Cystoscopy was then performed using a Flexible Storz cystoscope. Sterile technique was maintained throughout. Please refer to above for specific findings during this part of the procedure. After carefully and atraumatically inspecting the urethra, VN, bladder, and UO's, the bladder was emptied and the cystoscope was removed. The patient tolerated the procedure well and there were nocomplications. She was take for recovery in good condition. Anesthesia: Lidojet Findings: see above Complications: None EBL: None Disposition: Cystoscopy GRACIELA. Reassured the patient of the microscopic hematuria as not from a serious cause. Recommended continued care with her primary care physician and to come back and see me if she develops gross hematuria or new urinary symptoms. Ducted to monitor her kidney function and blood pressure. Taqueria Coto MD documented in [facility] History of Present illness Narrative* Sonja Pink CT - 07/21/2021 3:00 PM EDT Radiology Service Progress Note DATE OF SERVICE: July 21, 2021 TIME: 2:36 PM PATIENT IDENTITY VERIFICATION COMPLETED USING TWO (2) STANDARD IDENTIFIERS: Name and Date of confirmed by patient verbally. FALL SCREENING: Has the patient had 2 falls in the last year or 1 fall with injury or currently using an Ambulatory Assistive Device (Walker, Cane, Wheelchair, Crutches, etc.)? No PATIENT GENDER DATA: Female. status: : No status: NO. PATIENT RELEVANT IMPLANT DATA REVIEWED: Not Applicable ALLERGIES: Reviewed and unchanged CONTRAST ALLERGY: NO. EXAM: CT -CONTRAST INDUCED NEPHROPATHY RISK FACTORS: Not applicable CREATININE: P.O.C.T. RESULTS: N/A July 21, 2021 TREATMENT: N/A PERIPHERAL IV DATA: Ambulatory: A peripheral IV was started in the Right antecubital site with a Angio cath: 22 gauge. RADIOLOGY DEPARTMENT: CT; Exam(s) Completed: Abdomen/Pelvis SIGNATURE: NAV Duran PATIENT NAME: Clarissa Paris DATE: July 21, 2021 TIME: 2:36 PM documented in this encounterReg[facility]-06-2022 NoteHNO ID: [id number] Author: Taqueria Coto MD Service: ? Author Type: Physician Type: Progress Notes Filed: 07/03/2021 2:39 PM Note Text: [facility] NEW PATIENT HISTORY AND PHYSICAL EXAM PATIENT INFO: Clarissa Paris 55 year old REFERRING M.D.: No referring provider defined for this encounter. CHIEF COMPLAINT: Hematuria HISTORY:Clarissa Paris is a 55 year old female who presents for evaluation of hematuria. UA 09/10/2020- demonstrated 3-4 RBC PMHx- tobacco use, joint pain, microhematuria Patient reports feeling okay overall. She endorses having microhematuria for at least one year. She had 1 occurrence of gross hematuria during a UTI. She is a current smoker. HPI: (determine 4 of 8) 1-Duration: 2020 2-Location: Kidney, Bladder 3-Severity: moderate 4-Context: screening PAST MEDICAL HISTORY: No past medical history on file. PAST SURGICAL HISTORY: No past surgical history on file. No results found for: CREAT REVIEW OF SYSTEMS: General: Negative for malaise, significant weight loss or fever + fatigue + night sweats Head AND Neck: No blurred vision, cataracts or hearing loss Respiratory: + cough and shortness of breath Cardiovascular: Negative for chest pain or VA GI: Negative for abdominal discomfort or fecal incontinence Endocrine: No thyroid problems or diabetes mellitus Neuro: + numbness, + tingling or tremors Musculoskeletal: + joint pain or swelling, or + back pain PHYSICAL EXAM: Constitutional: Well-nourished, No physical deformities. Normally developed. Good grooming. Neck: Neck symmetrical, not swollen, Normal tracheal position. Eyes: Normal conjunctivae, normal eyelids. Ears, Nose, Mouth, and Throat: Left ear no scars, no lesions, no masses. Right ear no scars, no lesions, no masses. Nose no scars, no lesions, no jorge. Normal hearing. Normal lips. Respiratory: No labored breathing, no use of accessory muscles. Cardiovascular: Normal temperature, normal extremity pulses, no swelling, no varicosities. Skin: No paleness, no jaundice, no cyanosis. No lesion, no ulcer, no rash Lymphatic: No enlargement of neck, axillae, groin. Neurologic/Psychiatric: Oriented to time, oriented to place, oriented to person. No depression, no anxiety, no agitation. Musculosckeletal: Normal gait and station of head and neck Abdomen: Normal abdominal exam, Abdomen soft, non-tender. Bowel sounds normal. No masses, organomegaly Urinalysis: I ordered a urinalysis, results are: see laboratory report Impression: Clarissa Paris is a 55 year old female, current smoker, presenting for evaluation of microscopic hematuria. Due to smoking hx, I advised her that it is recommended she get a CT Urogram, cystoscopy, and send urine for cytology today. The patient had a chance to have all questions answered and agreed to this plan. Plan: CTU Cystoscopy Cytology Scribe Attestation: By signing my name below, Tori Desai, attest that this documentation has been prepared under the direction and in the presence of Dr. Taqueria Coto MD. Electronically Signed:arsen Yarbrough, July 03, 2021 2:33 PM Provider Attestation: ITaqueria MD, personally performed the services described in this documentation. All medical record entries made by the scribe were at my direction and in my presence. I have reviewed the chart and discharge instructions (if applicable) and agree that the record reflects my personal performance and is accurate and complete. Dr. Taqueria Coto MD July 03, 2021 2:39 PM Taqueria Coto MDProvidence Behavioral Health [id number] History of Present illness Narrative* Taqueria Coto MD - 07/03/2021 2:20 PM EDT [facility] NEW PATIENT HISTORY AND PHYSICAL EXAM PATIENT INFO: Clarissa Paris 55 year old REFERRING M.D.: No referring provider defined for this encounter. CHIEF COMPLAINT: Hematuria HISTORY:Clarissa Paris is a 55 year old female who presents for evaluation of hematuria. UA 09/10/2020- demonstrated 3-4 RBC PMHx- tobacco use, joint pain, microhematuria Patient reports feeling okay overall. She endorses having microhematuria for at least one year. Shehad 1 occurrence of gross hematuria during a UTI. She is a current smoker. HPI: (determine 4 of 8) 1-Duration: 2020 2-Location: Kidney, Bladder 3-Severity: moderate 4-Context: screening PAST MEDICAL HISTORY: No past medical history on file. PAST SURGICAL HISTORY: No past surgical history on file. No results found for: CREAT REVIEW OF SYSTEMS: General: Negative for malaise, significant weight loss or fever + fatigue + night sweats Head & Neck: No blurred vision, cataracts or hearing loss Respiratory: + cough and shortness of breath Cardiovascular: Negative for chest pain or VA GI: Negative for abdominal discomfort or fecal incontinence Endocrine: No thyroid problems or diabetes mellitus Neuro: + numbness, + tingling or tremors Musculoskeletal: + joint pain or swelling, or + back pain PHYSICAL EXAM: Constitutional: Well-nourished, No physical deformities. Normally developed. Good grooming. Neck: Neck symmetrical, not swollen, Normal tracheal position. Eyes: Normal conjunctivae, normal eyelids. Ears, Nose, Mouth, and Throat: Left ear no scars, no lesions, no masses. Right ear no scars, no lesions, no masses. Nose no scars, no lesions, no jorge. Normal hearing. Normal lips. Respiratory: No labored breathing, no use of accessory muscles. Cardiovascular: Normal temperature, normal extremity pulses, no swelling, no varicosities. Skin: No paleness, no jaundice, no cyanosis. No lesion, no ulcer, no rash Lymphatic: No enlargement of neck, axillae, groin. Neurologic/Psychiatric: Oriented to time, oriented to place, oriented to person. No depression, no anxiety, no agitation. Musculosckeletal: Normal gait and station of head and neck Abdomen: Normal abdominal exam, Abdomen soft, non-tender. Bowel sounds normal. No masses, organomegaly Urinalysis: I ordered a urinalysis, results are: see laboratory report Impression: Clarissa Paris is a 55 year old female, current smoker, presenting for evaluation of microscopic hematuria. Due to smoking hx, I advised her that it is recommended she get a CT Urogram, cystoscopy, and send urine for cytology today. The patient had a chance to have all questions answered and agreed to this plan. Plan: CTU Cystoscopy Cytology Scribe Attestation: By signing my name below, I, Tori Reich, attest that this documentation has been prepared under the direction and in the presence of Dr. Taqueria Coto MD. Electronically Signed:arsen Yarbrough, July 03, 2021 2:33 PM Provider Attestation: I, Taqueria Coto MD, personally performed the services described in this documentation. All medical record entries made by the scribe were at my direction and in my presence. I have reviewed thechart and discharge instructions (if applicable) and agree that the record reflects my personal perf ormance and is accurate and complete. Dr. Taqueria Coto MD July 03, 2021 2:39 PM Taqueria Coto MD [facility] Note* Elizabeth Prakash RN - 07/03/2021 2:04 PM EDT Post Void Residual done on patient with 10ml residual volume remaining. MD notified. Elizabeth Prakash RN [facility] Diagnosis Hematuria, microscopic Microscopic hematuria [facility] Diagnosis Hematuria, microscopic- Primary Microscopic hematuria [facility] noteNo assessment information availableUpper [facility] Work Phone: Evaluation note* Diagnosis Chronic neck pain- Primary Cervicalgia Sore throat Acute pharyngitis Headache, unspecified headache type Wheezing documented in this encounter [facility] note* Diagnosis Hematuria, microscopic Microscopic hematuria documented in this encounter [facility] note* Diagnosis Primary osteoarthritis of right knee documented in this encounter [facility] Work Phone: Evaluation note* Diagnosis Primary osteoarthritis of right knee- Primary documented in this encounter [facility] Work Phone: Evaluation note* Diagnosis Low back pain with sciatica, sciatica laterality unspecified, unspecified back pain laterality, unspecified chronicity- Primary Lumbar degenerative disc disease Lumbar radiculitis Low back pain with sciatica, sciatica laterality unspecified, unspecified back pain laterality, unspecified chronicity documented in this encounter [facility] Work Phone: Evaluation note* Diagnosis Low back pain with sciatica, sciatica laterality unspecified, unspecified back pain laterality, unspecified chronicity documented in this encounter [facility] Work Phone: [phone] note* Diagnosis Primary osteoarthritis of right knee- Primary documented in this encounter [facility] Work Phone: [phone] note* Diagnosis Low back pain with sciatica, sciatica laterality unspecified, unspecified back pain laterality, unspecified chronicity Lumbar degenerative disc disease Lumbar radiculitis documented in this encounter [facility] Work Phone: Evaluation note* Diagnosis Back pain with radiculopathy- Primary documented in this encounter [facility] Work Phone: [phone] note* Diagnosis Encounter for gynecological examination without abnormal finding- Primary Mood swings Other specified episodic mood disorder Hair loss Unspecified alopecia Encounter for screening mammogram for malignant neoplasm of breast Screening for malignant neoplasm of cervix Screening for malignant neoplasm of the cervix Abdominal bloating Flatulence, eructation, and gas pain [facility] Diagnosis Right knee pain, unspecified chronicity Tear of medial meniscus of right knee, current, unspecified tear type, initial encounter documented in this encounter [facility] Work Phone: [phone] note* Diagnosis Primary osteoarthritis of right knee- Primary documented in this encounter [facility] Work Phone: Evaluation note* Diagnosis Mood swings Other specified episodic mood disorder Hair loss Unspecified alopecia Abdominal bloating Flatulence, eructation, and gas pain Family history of breast cancer Family history of malignant neoplasm of breast Rash Rash and other nonspecific skin eruption [facility]* Diagnosis Hyperthyroidism- Primary Thyrotoxicosis without mention of goiter or other cause, without mention of thyrotoxic crisis or storm Torin thyroiditis [facility] Torin thyroiditis [facility] Narrative - Reported* Type Description Date Medical History back pain Medical History neck pain Medical History child X 2 Medical History depression Surgical History hysterectomy 2009 Surgical History Procedure: section;Dise ase: 1994 Surgical History c section 1994 Surgical History Procedure:tubaligation;Disease: 1996 Surgical History neck surgery C5, C6 fusion 1997 Surgical History Procedure:neck fusion c5/c6;Dis ease: 1998 Surgical History ablasion 2007 Surgical History AJ 2009 Surgical History endometrial ablation Surgical History tubal ligation 1997 Surgical History C4,5,6,7 fusion Surgical History right knee scope wit h lateral meniscectomy and lateral retinacular release 08/22/18 Surgical History Left breast bx benign Surgical History Right knee arthoscopy miniscus tear 08/2018 Hospitalization History see surgical [facility] Other History general Narrative - Reported* Type Description Date Medical History back pain Medical History neck pain Medical History child X 2 Medical History depression Medical History shortness of breath Surgical History hysterectomy 2009 Surgical History Procedure: section;Dise ase: 1994 Surgical History c section 1994 Surgical History Procedure:tubaligation;Disease: 1996 Surgical History neck surgery C5, C6 fusion 1997 Surgical History Procedure:neck fusion c5/c6;Dis ease: 1998 Surgical History ablasion 2007 Surgical History AJ 2009 Surgical History endometrial ablation Surgical History tubal ligation 1997 Surgical History C4,5,6,7 fusion Surgical History right knee scope wit h lateral meniscectomy and lateral retinacular release 08/22/18 Surgical History Left breast bx benign Surgical History Right knee arthoscopy miniscus tear 08/2018 Hospitalization History see surgical [facility] Other History of Present illness NarrativePatient here for follow up of right knee. She had a scope, a cleanout done up in [place]. They never mentioned PVNS. 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 We reviewed the arthroscopy pictures and the knee looked pretty clean. They did a meniscectomy but no path specimens. She had a lot of welling and bruising postop but it is hard to say whether that was just due to a synovectomy or just regular knee scope.-[facility] Work Phone: History of Present illness NarrativePatient previously seen for left knee. She had a scope, a cleanout, she had what sounds like PVNS, some arthritic change.-[facility] Work Phone: History of Present illness NarrativeRight knee known arthritis. She has days where the knee blows up, locks up and does not want to bend, then it unlocks. She has already had a scope and a cleanout. Cortisone injection help for about three months.-[facility] Work Phone: History of Present illness NarrativePatient here for right knee.-[facility] Work Phone: Reason for referral (narrative)* Consultation (Routine) - Closed Specialty Diagnoses / Procedures Referred By Ally gonzalez Referred To Contact Dermatology Diagnoses Hair loss Procedures [place] [facility] 60 MINUTES Rickey Valera MD [address] [place] [address] Davina Ferrara APRN-TIP PRINTER [address] [place] [address] Referral ID Status Reason Start Date Expiration Date V isits Requested Visits Authorized [id number] Closed Specialty Services Required 11/16/2023 05/14/2024 1 1 [facility] for referral (narrative)* Diagnostic Procedure Only (Routine) - Authorized Specialty Diagnoses / Procedures Referred By Ally gonzalez Referred To Contact US IMAGING Diagnoses Torin thyroiditis Procedures US THYROID/PARATHYROID US SOFT TISSUE HEAD & NECK REAL TIME IMGE DOCM Jay Hassan MD [address] [place] [address] [place] [address] Referral ID Status Reason Start Date Expiration Date Visits Requested Visits Authorized [id number] Authorized Auto-Generat ed Referral 01/25/2025 1 1 [facility] for visit Narrative* Diagnostic Procedure Only (Routine) - Closed Specialty Diagnoses / Procedures Referred By Contac t Referred To Contact US IMAGING Diagnoses Torin thyroiditis Procedures US THYROID/PARATHYROID US SOFT TISSUE HEAD & NECK REAL TIME IMGE DOCM Jay Hassan MD [address] [address] [place] [address] Referral ID Status Reason Start Date Expiration Date V isits Requested Visits Authorized [id number] Closed Auto-Generate d Referral 12/27/2023 01/25/2025 1 1 [facility] Reason for Referral Status Reason Specialty Diagnoses / Procedures Re ferred By Contact Referred To Contact Pending Review Diagnoses Displacement of cervical intervertebral disc without myelopathy Procedures EMG & NERVE CONDUCTION Carlos Beck MD [address] [address] [place] [address] Specialty Diagnoses / Procedures Referred By Contac t Referred To Contact CT IMAGING Diagnoses Hematuria, microscopic Procedures CT UROGRAM WO/W IVCON CT ABD & PELVIS W/O CONTRST 1+ BODY REGTaqueria Moreira MD [id number] Imaging Referral ID Status Reason Start Date Expiration Date V isits Requested Visits Authorized [id number] Open Auto-Generate d Referral 07/03/2021 08/02/2022 1 1 Referral ID Status Reason Start Date Expiration Date V isits Requested Visits Authorized [id number] Closed Auto-Generate d Referral 07/06/2021 02/27/2022 1 1 Specialty Diagnoses / Procedures Referred By Contac t Referred To Contact Diagnoses Primary osteoarthritis of right knee Taqueria Gilliam MD [address] [facility], [address] [place] [address] Referral ID Status Reason Start Date Expiration Date V isits Requested Visits Authorized [id number] Pending Review 01/06/2023 01/06/2024 1 1 Specialty Diagnoses / Procedures Referred By Contact Referred To Contact Orthopaedic Surgery / Orthopedic Surgery Procedures L Inj/Asp: R knee Taqueria Gilliam MD [address] [facility], [address] [place] [address] Referral ID Status Reason Start Date Expiration Date V isits Requested Visits Authorized [id number] Pending Review 03/24/2023 03/23/2024 1 1 Specialty Diagnoses / Procedures Referred By Contac t Referred To Contact Radiology Diagnoses Low back pain with sciatica, sciatica laterality unspecified, unspecified back pain laterality, unspecified chronicity Lumbar degenerative disc disease Lumbar radiculitis Procedures MR lumbar spine wo IV contrast Taqueria Rojas MD [address] [facility], [address] [place] [address] Referral ID Status Reason Start Date Expiration Date Visits Requested Visits Authorized [id number] Pending Review Perform Procedure 07/05/2023 07/04/2024 1 1 Specialty Diagnoses / Procedures Referred By Contac t Referred To Contact Physical Therapy Diagnoses Low back pain with sciatica, sciatica laterality unspecified, unspecified back pain laterality, unspecified chronicity Lumbar degenerative disc disease Lumbar radiculitis Taqueria Rojas MD [address] [facility], [address] [place] [address] Referral ID Status Reason Start Date Expiration Date Visits Requested Visits Authorized [id number] Pending Review Specialty Services Required 07/05/2023 07/04/2024 1 1 Specialty Diagnoses / Procedures Referred By Contac t Referred To Contact Radiology Diagnoses Low back pain with sciatica, sciatica laterality unspecified, unspecified back pain laterality, unspecified chronicity Procedures XR lumbar spine 4+ views w flexion extension Taqueria Rojas MD [address] [facility], [address] [place] [address] Referral ID Status Reason Start Date Expiration Date Visits Requested Visits Authorized [id number] Authorized Perform Procedure 07/05/2023 07/04/2024 1 1 Referral ID Status Reason Start Date Expiration Date Visits Requested Visits Authorized [id number] Authorized Perform Procedure 07/05/2023 07/04/2024 1 1 Specialty Diagnoses / Procedures Referred By Ally gonzalez Referred To Contact Radiology Diagnoses Right knee pain, unspecified chronicity Tear of medial meniscus of right knee, current, unspecified tear type, initial encounter Procedures MR knee right wo IV contrast Taqueria Gilliam MD [address] [facility], [address] [place] [address] Referral ID Status Reason Start Date Expiration Date Visits Requested Visits Authorized [id number] Authorized Perform Procedure 11/16/2023 11/15/2024 1 1 Assessments Diagnosis Bilateral arm pain- Primary Pain in limb Displacement of cervical intervertebral disc without myelopathy Summary Purpose Family History No Family History Records Found Mother Name Dates Details No pertinent family history( V49.89, Z78.9) Status:Active Mother Name Dates Details No pertinent family history( V49.89, Z78.9) Status:Active Unknown Family Member Name Dates Details No pertinent family history: Mother(V49.89, Z78.9) Status:Active Unknown Family Member Name Dates Details No pertinent family history: Mother(V49.89, Z78.9) Status:Active Unknown Family Member Name Dates Details No pertinent family history: Mother(V49.89, Z78.9) Status:Active Unknown Family Member Name Dates Details No pertinent family history: Mother(V49.89, Z78.9) Status:Active Unknown Family Member Name Dates Details No pertinent family history: Mother(V49.89, Z78.9) Status:Active Unknown Family Member Name Dates Details No pertinent family history: Mother(V49.89, Z78.9) Status:Active Unknown Family Member Name Dates Details No pertinent family history: Mother(V49.89, Z78.9) Status:Active Unknown Family Member Name Dates Details No pertinent family history: Mother(V49.89, Z78.9) Status:Active Unknown Family Member Name Dates Details No pertinent family history: Mother(V49.89, Z78.9) Status:Active Relationship Condition Age at Onset Recorded Date/T esperanza grandparent Alzheimer's dementia Unknown Hypertension Unknown grandparent Malignant neoplasm of breast Unknown Diabetes mellitus Unknown Not Specified Hypertension Unknown Unknown Family Member Name Dates Details No pertinent family history: Mother(V49.89, Z78.9) Status:Active Unknown Family Member Name Dates Details No pertinent family history: Mother(V49.89, Z78.9) Status:Active Unknown Family Member Name Dates Details No pertinent family history: Mother(V49.89, Z78.9) Status:Active Unknown Family Member Name Dates Details No pertinent family history: Mother(V49.89, Z78.9) Status:Active Unknown Family Member Name Dates Details No pertinent family history: Mother(V49.89, Z78.9) Status:Active Unknown Family Member Name Dates Details No pertinent family history: Mother(V49.89, Z78.9) Status:Active Relationship Condition Age at Onset Recorded Date/T esperanza grandparent Alzheimer's dementia Unknown Hypertension Unknown grandparent Malignant neoplasm of breast Unknown Diabetes mellitus Unknown Not Specified Hypertension Unknown grandparent Unknown Malignant neoplasm Unknown grandparent Malignant neoplasm Unknown Malignant neoplasm of breast Unknown Relationship Condition Age at Onset Recorded Date/T esperanza grandparent Alzheimer's dementia Unknown Hypertension Unknown grandparent Malignant neoplasm of breast Unknown Diabetes mellitus Unknown mother Hypertension Unknown grandparent Unknown Malignant neoplasm Unknown grandparent Malignant neoplasm Unknown Malignant neoplasm of breast Unknown Relationship Condition Age at Onset Recorded Date/T esperanza grandparent Alzheimer's dementia Unknown Hypertension Unknown grandparent Diabetes mellitus Unknown Malignant neoplasm of breast Unknown mother Hypertension Unknown Malignant neoplasm Unknown grandparent Malignant neoplasm Unknown Advance Directives No Advanced Directives Records Found Advance Directive Response Recorded Date/ Time Advance Directives No November 29, 2016 3:44pm Chief Complaint f/u rt knee pain, xrays todayf/u rt knee pain, xrays today* B/L Knee Pain * Xrays Today * B/L Knee Pain * Xrays Today Right knee pain- Wants injectionRight knee pain- Wants injectionF/U Rt knee after cortisone injection 08/02/22 Medications Administered Section Inactive Administered Medications - up to 3 most recent administrations Medication Order MAR Action Action Date Dose Rate Site lidocaine urojet 2 % 11 mL topical gel (XYLOCAINE, GLYDO) 11 mL, URETHRAL, ONCE (UP TO 30 DAYS AMB), 1 dose, On Tue08/12/21 at 0830, FOR EXTERNAL USE ONLY APPLY TO: urethra Given 08/12/2021 1:22 PM EDT 11 mL sulfamethoxazole-trimethoprim 800-160 mg 1 tablet (BACTRIM DS,SEPTRA DS) 1 tablet, ORAL, ONCE, 1 dose, On Tue08/12/21 at 0830, Please document the antimicrobial indication: Prophylaxis Given 08/12/2021 1:22 PM EDT 1 tablet Chief Complaint and Reason for Visit Chief Complaint See order Chief Complaint See order Screening Chief Complaint See order Screening r92.8 Chief Complaint Cough Chief Complaint R06.02 Screening Chief Complaint r001 Chief Complaint M25.50 R63.5 L65.9 Chief Complaint M25.50 R63.5 L65.9 chest pain, going into lt arm Chief Complaint M25.50 R63.5 L65.9 chest pain, going into lt arm Screening Additional Source Comments Reason for Visit (unrecogniz ed section and content) Status Reason Specialty Diagnoses / Procedures Re ferred By Contact Referred To Contact Pending Review Diagnoses Displacement of cervical intervertebral disc without myelopathy Procedures EMG & NERVE CONDUCTION Carlos Beck MD [address] [facility] [facility] [address] [address] [place] [address] Reason Comments Consult Reason Comments Established Patient Reason Comments Pain Right side of neck w ith spots on tonsills x 2 days Reason Comments Radiology CT Specialty Diagnoses / Procedures Referred By Ally t Referred To Contact CT IMAGING Diagnoses Hematuria, microscopic Procedures CT UROGRAM WO/W IVCON CT ABD & PELVIS W/O CONTRST 1+ BODY REGNS Taqueria Coto MD [address] [facility] [place] [address] Ct Imaging Referral ID Status Reason Start Date Expiration Date V isits Requested Visits Authorized [id number] Closed Auto-Generate d Referral 07/06/2021 02/27/2022 1 1 Reason Comments Injections Synvisc one Specialty Diagnoses / Procedures Referred By Ally t Referred To Contact Diagnoses Unilateral primary osteoarthritis, right knee Procedures [place] [id number] [address] [place] [id number] Referral ID Status Reason Start Date Expiration Date Visits Re quested Visits Authorized [id number] 1 1 Reason Comments Injection Follow-up S/p synvisc 1 01/06/ 3 Reason Comments New Patient Visit Low back painHas tri ed therapy and chiropracticxrays Specialty Diagnoses / Procedures Referred By Contac t Referred To Contact Radiology Diagnoses Low back pain with sciatica, sciatica laterality unspecified, unspecified back pain laterality, unspecified chronicity Procedures XR lumbar spine 4+ views w flexion extension Taqueria Rojas MD [address] [facility], [address] [place] [address] Referral ID Status Reason Start Date Expiration Date Visits Requested Visits Authorized [id number] Authorized Perform Procedure 07/05/2023 07/04/2024 1 1 Reason Comments Follow-up OA s/p john inj john inj 03/24/23 Specialty Diagnoses / Procedures Referred By Contac t Referred To Contact Radiology Diagnoses Low back pain with sciatica, sciatica laterality unspecified, unspecified back pain laterality, unspecified chronicity Lumbar degenerative disc disease Lumbar radiculitis Procedures MR lumbar spine wo IV contrast Taqueria Rojas MD [address] [facility], [address] [place] [address] Referral ID Status Reason Start Date Expiration Date Visits Requested Visits Authorized [id number] Authorized Perform Procedure 07/05/2023 07/04/2024 1 1 Reason Comments Follow-up MRI done at Reason Comments Gynecologic Exam Specialty Diagnoses / Procedures Referred By Contac t Referred To Contact Radiology Diagnoses Right knee pain, unspecified chronicity Tear of medial meniscus of right knee, current, unspecified tear type, initial encounter Procedures MR knee right wo IV contrast Taqueria Gilliam MD [address] [facility], [address] [place] [address] Referral ID Status Reason Start Date Expiration Date Visits Requested Visits Authorized [id number] Authorized Perform Procedure 11/16/2023 11/15/2024 1 1 Reason Comments Follow-up MRI results Reason Comments Follow-up Reason Comments Thyroid Problem Reason Comments Appointment INFORMATION SOURCE (unrecogn ized section and content) DATE CREATED AUTHOR 03/10/2018 Radha Gray [facility] DATE CREATED AUTHOR AUTHOR'S ORGANIZ ATION 09/21/2019 [facility] DATE CREATED AUTHOR AUTHOR'S ORGANIZ ATION 08/16/2021 [facility] DATE CREATED AUTHOR AUTHOR'S ORGANIZ ATION 12/27/2021 [facility] DATE CREATED AUTHOR AUTHOR'S ORGANIZ ATION 05/18/2022 [facility] DATE CREATED AUTHOR AUTHOR'S ORGANIZ ATION 11/08/2022 [facility] DATE CREATED AUTHOR AUTHOR'S ORGANIZ ATION 11/10/2022 [facility] DATE CREATED AUTHOR AUTHOR'S ORGANIZ ATION 11/21/2023 [facility] DATE CREATED AUTHOR AUTHOR'S ORGANIZ ATION 12/10/2023 [facility] EPIC DATE CREATED AUTHOR AUTHOR'S ORGANIZ ATION 12/12/2023 [facility] DATE CREATED AUTHOR AUTHOR'S ORGANIZ ATION 12/23/2023 [facility] DATE CREATED AUTHOR AUTHOR'S ORGANIZ ATION 01/05/2024 [facility] DATE CREATED AUTHOR AUTHOR'S ORGANIZ ATION 01/08/2024 [facility] Source Comments (unrecognize d section and content) In the event this informatio n is protected by the Federal Confidentiality of Alcohol and Drug Abuse Patient Records regulations: The Federal rules restrict any use of the information to criminally investigate or prosecute any alcohol or drug abuse patient.[facility] the event this information is protected by the Federal Confidentiality of Alcohol and Drug Abuse Patient Records regulations: The Federal rules restrict any use of the information to criminally investigate or prosecute any alcohol or drug abuse patient.[facility] the event this information is protected by the Federal Confidentiality of Alcohol and Drug Abuse Patient Records regulations: The Federal rules restrict any use of the information to criminally investigate or prosecute any alcohol or drug abuse patient.[facility] EastIn the event this information is protected by the Federal Confidentiality of Alcohol and Drug Abuse Patient Records regulations: The Federal rules restrict any use of the information to criminally investigate or prosecute any alcohol or drug abuse patient.[facility] East[facility] the event this information is protected by the Federal Confidentiality of Alcohol and Drug Abuse Patient Records regulations: The Federal rules restrict any use of the information to criminally investigate or prosecute any alcohol or drug abuse patient.[facility] East[facility] the event this information is protected by the Federal Confidentiality of Alcohol and Drug Abuse Patient Records regulations: The Federal rules restrict any use of the information to criminally investigate or prosecute any alcohol or drug abuse patient.[facility] the event this information is protected by the Federal Confidentiality of Alcohol and Drug Abuse Patient Records regulations: The Federal rules restrict any use of the information to criminally investigate or prosecute any alcohol or drug abuse patient.[facility] Care Teams (unrecognized sec tion and content) Team Status: Inactive Member Role Status Dates Vick Payne DO Primary Care Provider, Attending Lucy marquez Active Team Status: Active Member Role Status Dates Vick Payne DO Primary Care Provider Active Team Status: Inactive Member Role Status Dates Vick Payne DO Primary Care Provider Active Referral Self Attending Provider, Referring Provider A ctive Team Status: Inactive Member Role Status Dates Vick Payne DO Primary Care Provider Active Herber Guido NP-C Attending Provider Activ e Chalk Machine Operator Relationship Specialty Start Date End Date Vick Payne DO [address] [place] [address] PCP - General 06/19/20 Chalk Machine Operator Relationship Specialty Start Date End Date Vick Payne DO [address] [place] [address] PCP - General 06/19/20 Team Status: Inactive Member Role Status Dates Vick Payne DO Primary Care Provide r, Attending Provider Active Start: May 16, 2023 End: May 16, 2023 Chalk Machine Operator Relationship Specialty Start Date End Date Vick Payne DO [address] [place] [address] PCP - General 06/19/20 Chalk Machine Operator Relationship Specialty Start Date End Date Vick Payne DO [address] [place] [address] PCP - General 06/19/20 Chalk Machine Operator Relationship Specialty Start Date End Date Vick Payne DO [address] [place] [address] PCP - General 06/19/20 Chalk Machine Operator Relationship Specialty Start Date End Date Vick Payne [address] [place] [address] PCP - General 06/19/20 Chalk Machine Operator Relationship Specialty Start Date End Date Vick Payne [address] [place] [address] PCP - General 06/19/20 Team Status: Inactive Member Role Status Dates Vick Payne DO Primary Care Provide r, Attending Provider Active Start: October 13, 2023 End: October 13, 2023 Chalk Machine Operator Relationship Specialty Start Date End Date Vick Payne MD [address] [place] [address] PCP - General Family Medicine 09/06/22 Chalk Machine Operator Relationship Specialty Start Date End Date Vick Payne [address] [place] [address] PCP - General 06/19/20 Chalk Machine Operator Relationship Specialty Start Date End Date Vick Payne [address] [place] [address] PCP - General 06/19/20 Team Status: Inactive Member Role Status Dates Vick Payne DO Primary Care Provider Active Start: December 08, 2023 End: December 08, 2023 Yesenia Durant DO Emergency Provider Active St art: December 08, 2023 End: December 08, 2023 Chalk Machine Operator Relationship Specialty Start Date End Date Vick Payne MD [address] [place] [address] PCP - General Family Medicine 09/06/22 Team Status: Inactive Member Role Status Dates Vick Payne DO Primary Care Provider Active Start: December 19, 2023 End: December 19, 2023 Referral Self Attending Provider Active Start: O [id number] End: December 19, 2023 Goals (unrecognized section and content) Goals may be documented in a n alternate sectionGoals may be documented in an alternate sectionGoals may be documented in an alternate sectionNo InformationGoals may be documented in an alternate sectionNo InformationGoals may be documented in an alternate sectionGoals may be documented in an alternate sectionGoals may be documented in an alternate sectionGoals may be documented in an alternate sectionGoals may be documented in an alternate sectionGoals may be documented in an alternate section FOR RECORDS PERTAINING TO PATIENTS WHO ARE OR HAVE BEEN ENROLLED IN A CHEMICAL DEPENDENCY/SUBSTANCEABUSE PROGRAM, SOME INFORMATION MAY BE OMITTED. This clinical summary was aggregated from multiple sources. Caution should be exercised in using it in the provision of clinical care. This summary normalizes information from multiple sources, and as a consequence, information in this document may materially change the coding, format and clinical context of patient data. In addition, data may be omitted in some cases. CLINICAL DECISIONS SHOULD BE BASED ON THE PRIMARY CLINICAL RECORDS. [employer] provides no warranty or guarantee of the accuracy or completeness of information in this document.
== END 2024-01-09 07:48 | disposition home or self-care (01) ==
LOC: CT 07:47
PROVIDERS: Visit Provider Internal Medicine
DX: F17.219 Nicotine dependence, cigarettes, with unspecified nicotine-induced disorders (principal)
CPT/HCPCS: 71271